=== PATIENT | female | born 1960 | race Caucasian/White ===

== ENCOUNTER 2016-11-07 04:21 | Emergency (ER) | payer OTHER ==
[2016-11-07 04:31] VITALS: BP 138/73; PULSE 92; TEMP 97.5; BMI 31.8
--- NOTE | 2016-11-07 04:39 | PDOC ---
History of Present Illness - General History Source: Patient, Old Records Exam Limitations: No Limitations - History of Present Illness Initial Comments: 11/07/16 04:45 Soraya DELONG The patient is a 56 year old female with a past medical history of DM ( controlled), HTN, Gastroparesis, Kidney stones, Hypothyroidism, Anxiety, Cholecystectomy who presents to the emergency department today for further evaluation of a head contusion s/p syncopal episode. The patient states that last night she was walking from her bedroom to her living room when she lost consciousness without warning, fell and hit her head. The patient notes that she had appropriate oral intake yesterday. The patient also reports bilateral knee contusions. <Kamran Walsh - Last Filed: 11/07/16 05:42> - General History Source: Patient <Chadd Sahni - Last Filed: 11/07/16 06:27> - General Chief Complaint: Syncope/Near Syncope Stated Complaint: FALL Time Seen by Provider: 11/07/16 04:39 Past History <Kamran Walsh - Last Filed: 11/07/16 05:42> - Past Medical History Anemia: No Asthma: No Cancer: No Cardiac Disorders: Yes (DX WITH ENLARGED HEART) CVA: No COPD: No CHF: No Dementia: No Diabetes: Yes GI Disorders: Yes (gastritis) Disorders: Yes (KIDNEY STONES) HTN: Yes Hypercholesterolemia: Yes Liver Disease: No Psychiatric Problems: Yes (ANXIETY.) Suicide Attempt (Hx): No Seizures: No Thyroid Disease: Yes (HYPO.) - Surgical History Abdominal Surgery: Yes Appendectomy: No Cardiac Surgery: No Cholecystectomy: Yes Lung Surgery: No Neurologic Surgery: No Orthopedic Surgery: Yes (ROTATOR CUFF REPAIR X2 LEFT ARM) - Immunization History Immunization Up to Date: Yes - Psycho/Social/Smoking Cessation Hx Anxiety: No Suicidal Ideation: No Smoking Status: No Smoking History: Never smoked Have you smoked in the past 12 months: No Number of Cigarettes Smoked Daily: 0 If you are a former smoker, when did you quit?: 11 YEARS Information on smoking cessation initiated: No Hx Alcohol Use: No Drug/Substance Use Hx: No Substance Use Type: None Hx Substance Use Treatment: No <Chadd Sahni - Last Filed: 11/07/16 06:27> - Past Medical History Allergies/Adverse Reactions: Allergies Allergy/AdvReac Type Severity Reaction Status Date / Time No Known Drug Allergies Allergy Verified 11/07/16 04:26 Home Medications: Ambulatory Orders Sitagliptin Phos/Metformin HCl [Janumet 50-1,000 mg Tablet] 1 each PO DAILY 01/26 Zolpidem Tartrate [Ambien] 10 mg PO HS 07/22/12 Insulin Glargine,Hum.rec.anlog [Lantus Solostar PEN -] 45 units SQ HS 05/13/13 Omeprazole [Prilosec (RX)] 20 mg PO DAILY 09/17/13 Atorvastatin Ca [Lipitor] 40 mg PO HS 01/27/15 Paroxetine HCl [Paxil] 20 mg PO DAILY 10/14/15 Aspirin [ASA -] 81 mg PO DAILY 02/04/16 Glipizide [Glucotrol] 10 mg PO BID 02/04/16 Loratadine 10 mg PO DAILY 02/04/16 Montelukast Na [Singulair -] 10 mg PO HS 02/04/16 Ibuprofen 800 mg PO TID #30 tablet 11/07/16 Levofloxacin [Levaquin -] 500 mg PO DAILY #7 tablet 11/07/16 Oxycodone HCl/Acetaminophen [Percocet 5-325 mg Tablet] 1 - 2 tab PO Q6H #20 tab MDD 4 11/07/16 Review of Systems - Review of Systems Able to Perform ROS?: Yes Comments:: 11/07/16 04:45 CONSTITUTIONAL: Absent: fever, chills, diaphoresis, generalized weakness, malaise, loss of appetite HEENT: Present: (+) Head contusion. Absent: rhinorrhea, nasal congestion, throat pain, throat swelling, difficulty swallowing, mouth swelling, ear pain, eye pain, visual Changes CARDIOVASCULAR: Absent: chest pain, syncope, palpitations, irregular heart rate, lightheadedness , peripheral edema RESPIRATORY: Absent: cough, shortness of breath, dyspnea with exertion, orthopnea, wheezing, stridor, hemoptysis GASTROINTESTINAL: Absent: abdominal pain, abdominal distension, nausea, vomiting, diarrhea, constipation, melena, hematochezia GENITOURINARY: Absent: dysuria, frequency, urgency, hesitancy, hematuria, flank pain, genital pain MUSCULOSKELETAL: Present: Bilateral knee contusions Absent: Joint swelling SKIN: Absent: rash, itching, pallor HEMATOLOGIC/IMMUNOLOGIC: Absent: easy bleeding, easy bruising, lymphadenopathy, frequent infections ENDOCRINE: Absent: unexplained weight gain, unexplained weight loss, heat intolerance, cold intolerance NEUROLOGIC: Absent: headache, focal weakness or paresthesias, dizziness, unsteady gait, seizure, mental status changes, bladder or bowel incontinence PSYCHIATRIC: Absent: anxiety, depression, suicidal or homicidal ideation, hallucinations. <Kamran Walsh - Last Filed: 11/07/16 05:42> *Physical Exam - Vital Signs Last Vital Signs Temp Pulse Resp BP Pulse Ox 97.5 F L 92 H 14 138/73 100 11/07/16 04:26 11/07/16 04:26 11/07/16 04:26 11/07/16 04:26 11/07/16 04:26 - Physical Exam Comments: 11/07/16 04:45 GENERAL: Well developed, well nourished. Awake and alert. In no acute distress. HEENT: (+) Contusion on the right frontal region Normocephalic. PERRLA, EOMI. No conjunctival pallor. Sclerae are non-icteric. Moist mucous membranes. Oropharynx is clear. NECK: Supple. Full ROM. No JVD. Carotid pulses 2+ and symmetric, without bruits. No thyromegaly. No lymphadenopathy. CARDIOVASCULAR: Regular rate and rhythm. No murmurs, rubs, or gallops. Distal pulses are 2+ and symmetric. PULMONARY: No evidence of respiratory distress. Lungs clear to auscultation bilaterally. No wheezing, rales or rhonchi. ABDOMINAL: Soft. Non-tender. Non-distended. No rebound or guarding. No organomegaly. Normoactive bowel sounds. MUSCULOSKELETAL Normal range of motion at all joints. No bony deformities or tenderness. No CVA tenderness. EXTREMITIES: (+) Bilateral contusions at knees. No cyanosis. No clubbing. No edema. No calf tenderness. SKIN: Warm and dry. Normal capillary refill. No rashes. No jaundice. NEUROLOGICAL: Alert, awake, appropriate. Cranial nerves 2-12 intact. No deficits to light touch and temperature in face, upper extremities and lower extremities. No motor deficits in the in face, upper extremities and lower extremities. Normoreflexic in the upper and lower extremities. Normal speech. Toes are downgoing bilaterally. PSYCHIATRIC: Cooperative. Good eye contact. Appropriate mood and affect. <Kamran Waslh - Last Filed: 11/07/16 05:42> - Vital Signs Last Vital Signs Temp Pulse Resp BP Pulse Ox 97.5 F L 92 H 14 138/73 100 11/07/16 04:26 11/07/16 04:26 11/07/16 04:26 11/07/16 04:26 11/07/16 04:26 <Chadd Sahni - Last Filed: 11/07/16 06:27> ED Treatment Course - LABORATORY CBC & Chemistry Diagram: 11/07/16 05:00 11/07/16 05:00 <Chadd Sahni - Last Filed: 11/07/16 06:27> Medical Decision Making - Medical Decision Making 11/07/16 05:42 EXAM: CT HEAD WITHOUT CONTRAST No acute brain parenchymal abnormality. No hemorrhage, mass or acute territorial infarct. No skull fracture. Swelling left frontal scalp. Small fluid left maxillary sinus. Visualized mastoid air cells clear. THIS DOCUMENT HAS BEEN ELECTRONICALLY SIGNED Haydee Xiong M.D. <Kamran Walsh - Last Filed: 11/07/16 05:42> - Medical Decision Making 11/07/16 06:26 Dr. Sahni: The scribe's documentation has been prepared under my direction and personally reviewed by me in its entirery. I confirm that the note above accurately reflects all work, treatment, procedures, and medical decision making performed by me. <Chadd Sahni - Last Filed: 11/07/16 06:27> *DC/Admit/Observation/Transfer - Attestations Scribe Attestion: 11/07/16 04:46 Documentation prepared by Kamran Walsh, acting as medical insurance coding specialist for Chadd Sahni MD. <Kamran Walsh - Last Filed: 11/07/16 05:42> - Discharge Dispostion Admit: No <Chadd Sahni - Last Filed: 11/07/16 06:27> Diagnosis at time of Disposition: Closed head injury Qualifiers: Encounter type: initial encounter Qualified Code(s): S09.90XA - Unspecified injury of head, initial encounter Sinusitis Qualifiers: Sinusitis location: sphenoidal Chronicity: acute Recurrence: non-recurrent Qualified Code(s): J01.30 - Acute sphenoidal sinusitis, unspecified Contusion of knee, right Qualifiers: Encounter type: initial encounter Qualified Code(s): S80.01XA - Contusion of right knee, initial encounter - Discharge Dispostion Disposition: HOME Condition at time of disposition: Stable - Prescriptions Prescriptions: Ibuprofen 800 mg PO TID #30 tablet Levofloxacin [Levaquin -] 500 mg PO DAILY #7 tablet Oxycodone HCl/Acetaminophen [Percocet 5-325 mg Tablet] 1 - 2 tab PO Q6H #20 tab MDD 4 - Referrals Referrals: Tania Guzman MD [Primary Care Provider] - - Patient Instructions Printed Discharge Instructions: DI for Closed Head Injury, DI for Syncope in Adults (Fainting), DI for Contusion
[2016-11-07] MEDS ORDERED: ACETAMINOPHEN 1000 MG/100 ML VIAL (NON FORMULARY) IVPB ONE (04:41)
[2016-11-07] MEDS ORDERED: ACETAMINOPHEN INJECTION 100 ML IVPB ONE (05:08)
[2016-11-07 05:58] LABS: BASOPHIL 0.7 % (0-2.0); MCHC 33.5 g/dl (32.0-36.0); MEAN CELL VOLUME 74.6 fl (80-96); MEAN PLT VOLUME 8.7 fl (7.5-11.1); NEUTROPHILS 64.9 % (42.8-82.8); PLATELET COUNT 263 K/MM3 (134-434); RDW 15.5 % (11.6-15.6); WHITE BLOOD COUNT 7.6 K/mm3 (4.0-10.0)
[2016-11-07 06:05] LABS: URINE APPEARANCE CLEAR; URINE BILIRUBIN NEGATIVE (NEGATIVE); URINE BLOOD NEGATIVE (NEGATIVE); URINE COLOR STRAW; URINE GLUCOSE (UA) 3+ (NEGATIVE); URINE KETONE NEGATIVE (NEGATIVE); URINE LEUK ESTERASE NEGATIVE (NEGATIVE); URINE NITRITE NEGATIVE (NEGATIVE); URINE PROTEIN NEGATIVE (NEGATIVE); URINE UROBILINOGEN NEGATIVE E.U./dl (0.2-1.0)
[2016-11-07 06:10] LABS: INR 1.13 (0.82-1.09); PROTHROMBIN TIME (PATIENT) 12.5 SEC (9.98-11.88)
[2016-11-07] MEDS ORDERED: IBUPROFEN 400 MG TABLET (FP) PO ONE ×2 (06:22→06:28)
[2016-11-07] MEDS ORDERED: LEVOFLOXACIN 500 MG TABLET (FP) PO ONE (06:22)
[2016-11-07 06:27] LABS: ALBUMIN 3.5 g/dl (3.4-5.0); ALK PHOS 133 U/L (45-117); ANION GAP 12 (8-16); BILIRUBIN,TOTAL 0.2 mg/dL (0.2-1.0); CO2 27 mmol/L (21-32); CREATININE 0.7 mg/dL (0.55-1.02); GLUCOSE,RANDOM 297 mg/dL (74-106); MAGNESIUM 1.3 mg/dL (1.8-2.4); SGOT/AST 18 U/L (15-37); SGPT/ALT 20 U/L (12-78); TOT PROT 7.7 g/dl (6.4-8.2)
[2016-11-07] MEDS ORDERED: LEVOFLOXACIN 500 MG TABLET (FP) ONE (06:28)
--- NOTE | 2016-11-07 10:00 | EKG ---
Test Reason : Blood Pressure : / mmHG Vent. Rate : 088 BPM Atrial Rate : 088 BPM P-R Int : 154 ms QRS Dur : 080 ms QT Int : 370 ms P-R-T Axes : 059 -09 025 degrees QTc Int : 447 ms NORMAL SINUS RHYTHM MINIMAL VOLTAGE CRITERIA FOR LVH, MAY BE NORMAL VARIANT WHEN COMPARED WITH ECG OF 14-OCT-2015 04:12, NO SIGNIFICANT CHANGE WAS FOUND Confirmed by UZMA OLIVAS MD ([id number]) on 11/07/2016 9:59:26 AM Referred By: Confirmed By:UZMA OLIVAS MD
== END 2016-11-07 06:44 | disposition home or self-care (01) ==
LOC: JER 04:21
PROC: 3E033NZ Introduction of Analgesics, Hypnotics, Sedatives into Peripheral Vein, Percutaneous Approach (ICD-10-PCS; principal; 2016-11-07)
DX: J01.30 Acute sphenoidal sinusitis, unspecified (principal); S09.90XA Unspecified injury of head, initial encounter; S80.01XA Contusion of right knee, initial encounter; I51.9 Heart disease, unspecified; Z87.442 Personal history of urinary calculi; I10 Essential (primary) hypertension; E78.00 Pure hypercholesterolemia, unspecified; F41.9 Anxiety disorder, unspecified; W18.39XA Other fall on same level, initial encounter; Y93.89 Activity, other specified; Y92.003 Bedroom of unspecified non-institutional (private) residence as the place of occurrence of the external cause
CPT/HCPCS: 36415; 70450-TC; 71010-TC; 73562-TC-RT; 73630-TC-LT; 80053; 80307; 81003; 83690; 83735; 85025; 85610; 93005; 93010; 96374; 99283-25

== ENCOUNTER 2017-03-11 21:04 | Emergency (ER) | payer OTHER ==
[2017-03-11 21:16] VITALS: BMI 29.0
[2017-03-11] MEDS ORDERED: ONDANSETRON 4 MG/2 ML VIAL IVPUSH ONE (22:14)
[2017-03-11] MEDS ORDERED: PANTOPRAZOLE SODIUM 40 MG in SODIUM CHLORIDE 100 ML IVPB ONE (22:16)
--- NOTE | 2017-03-11 22:17 | PDOC ---
Attending Attestation - HPI HPI: 03/11/17 23:41 The patient is a 56 year old female with a PMHx of uncontrolled IDDM (fs 150's) , HTN, gastroparesis, gastric ulcer (4 years ago), gastritis, kidney stones, hypothyroidism, and s/p cholecystectomy anxiety presents with multiple episodes of vomiting and diarrhea for three days. The patient reports that she has had black tarry stools. She reports associated epigastric pain, vertigo, dizziness. She denies hematemesis. Denies chest pain, SOB. <GoelRachelDianne A - Last Filed: 03/11/17 23:41> - Resident Resident Name: Delio Zapien - ED Attending Attestation I have performed the following: I have examined & evaluated the patient, The case was reviewed & discussed with the resident, I agree w/resident's findings & plan, Exceptions are as noted - HPI HPI: 03/12/17 01:31 abdominal pain. - Physicial Exam PE: 03/12/17 01:31 *Physical Exam General Appearance: Yes: Appropriately Dressed. No: Apparent Distress, Intoxicated HEENT: positive: EOMI, LINDSEY, Normal ENT Inspection, Normal Voice, TMs Normal, Pharynx Normal. negative: Pale Conjunctivae, Photophobia, Scleral Icterus (R), Scleral Icterus (L) Neck: positive: Trachea midline, Normal Thyroid, Supple. negative: Tender, Rigid, Carotid bruit, Stridor, Lymphadenopathy (R), Lymphadenopathy (L), Thyromegaly Respiratory/Chest: positive: Lungs Clear, Normal Breath Sounds. negative: Chest Tender, Respiratory Distress, Accessory Muscle Use, Labored Respiration, RES, Crackles, Rales, Rhonchi, Stridor, Wheezing, Dullness Cardiovascular: positive: Regular Rhythm, Regular Rate, S1, S2. negative: Edema , JVD, Murmur, Bradycardia, Tachycardia Vascular Pulses: Dorsalis-Pedis (R): 2+, Doralis-Pedis (L): 2+ Gastrointestinal/Abdominal: positive: Normal Bowel Sounds, Flat, Soft. negative : Tender, Organomegaly, Pulsatile Mass, Increased Bowel Sounds, Decreased BS, Distended, Guarding, Rebound, Hernia, Hepatomegaly, Spleenomegaly Lymphatic: negative: Adenopathy, Tenderness Musculoskeletal: positive: Normal Inspection. negative: CVA Tenderness, Decreased Range of Motion Extremity: positive: Normal Capillary Refill, Normal Inspection, Normal Range of Motion, Pelvis Stable. negative: Tender, Pedal Edema, Swelling, Erythema Integumentary: positive: Normal Color, Dry, Warm. 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 negative: EOM Palsy, Facial Droop, Sensory Deficit - Medical Decision Making 03/12/17 19:36 lab work was done and was normal except pt had slight elevation to [facility]. Pt will follow up with her chief of staff doctor. Abd pain improved. <Chadd Sahni - Last Filed: 03/12/17 19:37> Discharge Disposition <Dianne Goel - Last Filed: 03/11/17 23:41> - Discharge Dispostion Last Admission D/C Date: 12/22/07 Admit: No <Chadd Sahni - Last Filed: 03/12/17 19:37> - Diagnosis Abdominal pain, Epigastric abdominal pain - Prescriptions Prescriptions: Pantoprazole Sodium [Protonix] 40 mg PO ONCE #30 tablet.ec - Referrals Referrals: Tania Guzman MD [Primary Care Provider] - Deejay Scott MD [Staff Physician] - Marlon Westbrook MD [Staff Physician] - - Patient Instructions Printed Discharge Instructions: DI for Abdominal Pain-Adult Additional Instructions: Please follow up with your doctor. Please have the positive hormone evaluated. Return if any problems
[2017-03-11] MEDS ORDERED: morphine CARPU-JECT 2 MG/1 ML DISP.SYRIN IVPUSH ONE (22:24)
[2017-03-11] MEDS ORDERED: SODIUM CHLORIDE 1,000 ML IV STA (22:25)
--- NOTE | 2017-03-11 22:38 | PDOC ---
History of Present Illness - General Chief Complaint: Lightheaded Stated Complaint: DIZZINESS,VOMITING, ABD PAIN Time Seen by Provider: 03/11/17 22:00 - History of Present Illness Initial Comments: 03/11/17 22:27 56F with history of uncontrolled IDDM (fs 150's), HTN, gastroparesis, kidney stones, hypothyroidism, and s/p cholecystectomy anxiety presents with multiple and relentless episodes of vomiting, diarrhea with black tarry stools and epigastric pain x3 days as well as vertigo, dizziness. Patient has been diagnosed with gastritis in the past, last endoscopy was in 2014, as well as a history of gastric ulcer 4 years ago. No hematemesis, no chest pain, no sob. Past History - Past Medical History Allergies/Adverse Reactions: Allergies Allergy/AdvReac Type Severity Reaction Status Date / Time No Known Drug Allergies Allergy Verified 03/11/17 21:14 Home Medications: Ambulatory Orders Sitagliptin Phos/Metformin HCl [Janumet 50-1,000 mg Tablet] 1 each PO DAILY 01/26 Insulin Glargine,Hum.rec.anlog [Lantus Solostar PEN -] 45 units SQ HS 05/13/13 Omeprazole [Prilosec (RX)] 20 mg PO DAILY 09/17/13 Loratadine 10 mg PO DAILY 02/04/16 Montelukast Na [Singulair -] 10 mg PO HS 02/04/16 Levofloxacin [Levaquin -] 500 mg PO DAILY #7 tablet 11/07/16 Anemia: No Asthma: No Cancer: No Cardiac Disorders: Yes (DX WITH ENLARGED HEART) CVA: No COPD: No CHF: No Dementia: No Diabetes: Yes GI Disorders: Yes (gastritis) Disorders: Yes (KIDNEY STONES) HTN: Yes Hypercholesterolemia: Yes Liver Disease: No Psychiatric Problems: Yes (ANXIETY.) Suicide Attempt (Hx): No Seizures: No Thyroid Disease: Yes (HYPO.) - Surgical History Abdominal Surgery: Yes Appendectomy: No Cardiac Surgery: No Cholecystectomy: Yes Lung Surgery: No Neurologic Surgery: No Orthopedic Surgery: Yes (ROTATOR CUFF REPAIR X2 LEFT ARM) - Immunization History Immunization Up to Date: Yes - Psycho/Social/Smoking Cessation Hx Anxiety: No Suicidal Ideation: No Smoking Status: No Smoking History: Never smoked Have you smoked in the past 12 months: No Number of Cigarettes Smoked Daily: 0 If you are a former smoker, when did you quit?: 11 YEARS Hx Alcohol Use: No Drug/Substance Use Hx: No Substance Use Type: None Hx Substance Use Treatment: No Review of Systems - Review of Systems Constitutional: Yes: See HPI. No: Chills, Diaphoresis, Fever HEENTM: No: Symptoms Reported, Throat Swelling, Difficulty Swallowing Respiratory: No: Symptoms reported, Shortness of Breath, Stridor, Wheezing Cardiac (ROS): Yes: See HPI, Chest Pain. No: Palpitations, Syncope ABD/GI: Yes: See HPI, Abdominal Distended, Diarrhea, Nausea, Vomiting, Abdominal cramping (epigastric pain and burning), Tarry Stools (since today). No: Abd. Pain w/ defecation : No: Burning, Dysuria, Discharge Integumentary: No: Dryness, Erythema, Pruritus, Rash Neurological: Yes: Headache, Unsteady Gait, Dizziness. No: Seizure *Physical Exam - Vital Signs Last Vital Signs Temp Pulse Resp BP Pulse Ox 98.2 F 116 H 20 120/75 100 03/11/17 21:14 03/11/17 21:14 03/11/17 21:14 03/11/17 21:14 03/11/17 21:14 - Physical Exam General Appearance: Yes: Nourished, Moderate Distress HEENT: positive: EOMI, LINDSEY. negative: Scleral Icterus (R), Scleral Icterus (L) Respiratory/Chest: positive: Lungs Clear, Normal Breath Sounds. negative: Chest Tender, Respiratory Distress Cardiovascular: positive: Regular Rhythm, S1, S2, Tachycardia Vascular Pulses: Dorsalis-Pedis (R): 2+, Doralis-Pedis (L): 2+ Gastrointestinal/Abdominal: positive: Tender, Soft, Decreased BS Extremity: positive: Normal Capillary Refill Integumentary: positive: Normal Color
[2017-03-11] MEDS ORDERED: PANTOPRAZOLE SODIUM 100 ML IVPB ONE (23:07)
[2017-03-11] MEDS ORDERED: morphine CARPU-JECT 4 MG/1 ML DISP.SYRIN ONE (23:07)
[2017-03-11] MEDS ORDERED: ONDANSETRON 4 MG/2 ML VIAL ONE (23:08)
[2017-03-11 23:38] LABS: STOOL FOR OCCULT BLOOD NEGATIVE (NEGATIVE)
[2017-03-11 23:38] LABS: BASOPHIL 1.2 % (0-2.0); EOSINOPHIL 1.1 % (0-4.5); MCH 24.4 pg (25.7-33.7); MCHC 32.9 g/dl (32.0-36.0); MEAN CELL VOLUME 74.1 fl (80-96); MEAN PLT VOLUME 8.6 fl (7.5-11.1); NEUTROPHILS 72.5 % (42.8-82.8); PLATELET COUNT 337 K/MM3 (134-434); RDW 14.9 % (11.6-15.6); WHITE BLOOD COUNT 12.2 K/mm3 (4.0-10.0)
[2017-03-11 23:45] LABS: URINE APPEARANCE CLOUDY; URINE BILIRUBIN NEGATIVE (NEGATIVE); URINE BLOOD 1+ (NEGATIVE); URINE COLOR YELLOW; URINE GLUCOSE (UA) 1+ (NEGATIVE); URINE KETONE NEGATIVE (NEGATIVE); URINE NITRITE NEGATIVE (NEGATIVE); URINE UROBILINOGEN NEGATIVE mg/dL (0.2-1.0)
[2017-03-11 23:59] LABS: URINE LEUK ESTERASE 3+ (NEGATIVE); URINE PROTEIN 2+ (NEGATIVE)
[2017-03-12 00:01] LABS: ALBUMIN 3.9 g/dl (3.4-5.0); ANION GAP 14 (8-16); BILIRUBIN,TOTAL 0.4 mg/dL (0.2-1.0); CALCIUM 9.6 mg/dL (8.5-10.1); CO2 23 mmol/L (21-32); CREATININE 1.2 mg/dL (0.55-1.02); GLUCOSE,RANDOM 150 mg/dL (74-106); SGOT/AST 41 U/L (15-37); SGPT/ALT 31 U/L (12-78); TOT PROT 8.3 g/dl (6.4-8.2)
[2017-03-12 00:02] LABS: ALK PHOS 167 U/L (45-117)
[2017-03-12] MEDS ORDERED: POTASSIUM CHLORIDE TABS 20 MEQ TABLET.ER (FP) PO ONE (01:30)
[2017-03-12 01:54] VITALS: BP 134/78; PULSE 93; TEMP 98.1
[2017-03-12 02:25] LABS: URINE BACTERIA MODERATE /hpf (NONE SEEN); URINE HYALINE CAST 46 /lpf; URINE MUCUS FEW; URINE RBC 7 /hpf (0-3); URINE WBC 132 /hpf (3-5)
--- NOTE | 2017-03-12 11:54 | EKG ---
Test Reason : Blood Pressure : / mmHG Vent. Rate : 088 BPM Atrial Rate : 088 BPM P-R Int : 136 ms QRS Dur : 080 ms QT Int : 402 ms P-R-T Axes : 039 -01 025 degrees QTc Int : 486 ms NORMAL SINUS RHYTHM PROLONGED QT ABNORMAL ECG WHEN COMPARED WITH ECG OF 13-FEB-2017 02:28, NO SIGNIFICANT CHANGE WAS FOUND Confirmed by ALLYSON PARHAM MD ([id number]) on 03/12/2017 11:53:28 AM Referred By: Confirmed By:ALLYSON PARHAM MD
== END 2017-03-12 01:55 | disposition home or self-care (01) ==
LOC: JER 21:04
PROC: 3E033GC Introduction of Other Therapeutic Substance into Peripheral Vein, Percutaneous Approach (ICD-10-PCS; principal; 2017-03-11)
PROC: 3E033NZ Introduction of Analgesics, Hypnotics, Sedatives into Peripheral Vein, Percutaneous Approach (ICD-10-PCS; 2017-03-11)
PROC: 3E033GC Introduction of Other Therapeutic Substance into Peripheral Vein, Percutaneous Approach (ICD-10-PCS; 2017-03-11)
DX: R10.13 Epigastric pain (principal); E11.9 Type 2 diabetes mellitus without complications; Z79.4 Long term (current) use of insulin; Z79.84 Long term (current) use of oral hypoglycemic drugs; I10 Essential (primary) hypertension; E03.9 Hypothyroidism, unspecified; K31.84 Gastroparesis
CPT/HCPCS: 36415; 80053; 81003; 81015; 82272; 84702; 84703; 85025; 93005; 93010; 99282-25

== ENCOUNTER 2017-04-25 09:28 | Emergency (ER) | payer OTHER ==
[2017-04-25 09:33] VITALS: BP 133/76; PULSE 104; TEMP 98; BMI 29.0
--- NOTE | 2017-04-25 10:07 | PDOC ---
History of Present Illness - General Chief Complaint: Urinary Problem Stated Complaint: PELVIC PAIN Time Seen by Provider: 04/25/17 09:51 History Source: Patient Exam Limitations: No Limitations - History of Present Illness Travel History: No Initial Comments: 04/25/17 10:07 She came to emergency department with complaints of dysuria, pain and burning and frequency to urine. States suffers from frequent urinary tract infections but has not been evaluated by [employer] or doctor. Has diabetes and states blood sugars go high and has a correlation between hyperglycemia and urinary tract infections. Denies nausea or vomiting, denies back pain, denies no bleeding in her urine Timing/Duration: reports: getting worse, changing over time Quality: reports: mild, moderate Abdominal Pain Onset Location: reports: suprapubic Pain Radiation: reports: no radiation Activities at Onset: reports: none Past History - Travel Traveled outside of the country in the last 30 days: No Close contact w/someone who was outside of country & ill: No - Past Medical History Allergies/Adverse Reactions: Allergies Allergy/AdvReac Type Severity Reaction Status Date / Time No Known Drug Allergies Allergy Verified 04/25/17 09:33 Home Medications: Ambulatory Orders Sitagliptin Phos/Metformin HCl [Janumet 50-1,000 mg Tablet] 1 each PO DAILY 01/26 Insulin Glargine,Hum.rec.anlog [Lantus Solostar PEN -] 45 units SQ HS 05/13/13 Omeprazole [Prilosec (RX)] 20 mg PO DAILY 09/17/13 Loratadine 10 mg PO DAILY 02/04/16 Montelukast Na [Singulair -] 10 mg PO HS 02/04/16 Levofloxacin [Levaquin -] 500 mg PO DAILY #7 tablet 11/07/16 Pantoprazole Sodium [Protonix] 40 mg PO ONCE #30 tablet.ec 03/12/17 Cephalexin Monohydrate [Keflex -] 500 mg PO Q8H #21 capsule 04/25/17 Anemia: No Asthma: No Cancer: No Cardiac Disorders: Yes (DX WITH ENLARGED HEART) CVA: No COPD: No CHF: No Dementia: No Diabetes: Yes GI Disorders: Yes (gastritis) Disorders: Yes (KIDNEY STONES) HTN: Yes Hypercholesterolemia: Yes Liver Disease: No Psychiatric Problems: Yes (ANXIETY.) Suicide Attempt (Hx): No Seizures: No Thyroid Disease: Yes (HYPO.) - Surgical History Abdominal Surgery: Yes Appendectomy: No Cardiac Surgery: No Cholecystectomy: Yes Lung Surgery: No Neurologic Surgery: No Orthopedic Surgery: Yes (ROTATOR CUFF REPAIR X2 LEFT ARM) - Immunization History Immunization Up to Date: Yes - Psycho/Social/Smoking Cessation Hx Anxiety: Yes Suicidal Ideation: No Smoking Status: No Smoking History: Never smoked Have you smoked in the past 12 months: No Number of Cigarettes Smoked Daily: 0 If you are a former smoker, when did you quit?: 11 YEARS Hx Alcohol Use: No Drug/Substance Use Hx: No Substance Use Type: None Hx Substance Use Treatment: No Review of Systems - Review of Systems Able to Perform ROS?: Yes Is the patient limited Serbian proficient: Yes Constitutional: Yes: Symptoms Reported, Malaise HEENTM: No: Symptoms Reported Respiratory: No: Symptoms reported *Physical Exam - Vital Signs Last Vital Signs Temp Pulse Resp BP Pulse Ox 98.0 F 104 H 20 133/76 99 04/25/17 09:04/25/17 09:04/25/17 09:04/25/17 09:04/25/17 09:29 - Physical Exam General Appearance: Yes: Nourished, Appropriately Dressed. No: Apparent Distress HEENT: positive: EOMI, LINDSEY, Normal ENT Inspection, TMs Normal, Pharynx Normal Neck: positive: Supple. 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 culture sent *DC/Admit/Observation/Transfer Diagnosis at time of Disposition: Urinary tract infection Qualifiers: Urinary tract infection type: acute cystitis Hematuria presence: without hematuria Qualified Code(s): N30.00 - Acute cystitis without hematuria - Discharge Dispostion Disposition: HOME Condition at time of disposition: Stable Admit: No - Prescriptions Prescriptions: Cephalexin Monohydrate [Keflex -] 500 mg PO Q8H #21 capsule - Referrals Referrals: Felipa Diaz MD [Primary Care Provider] - - Patient Instructions Printed Discharge Instructions: DI for Urinary Tract Infection (UTI) Additional Instructions: Rest, drink lots of fluids: Teas, water, soups Avoid contact with others until fevers and symptoms resolved Lots of handwashing and good hygiene Continue [id number] medications for symptomatic relief Tylenol or Motrin for fever and pain Continue all of antibiotics until completed Followup with private physician in one week for repeat urinalysis/reevaluation Return to emergency department for worsened symptoms, fevers, dehydration - Post Discharge Activity Work/School Note: Back to Work
[2017-04-25 10:10] LABS: URINE APPEARANCE CLEAR; URINE BILIRUBIN NEGATIVE (NEGATIVE); URINE BLOOD NEGATIVE (NEGATIVE); URINE COLOR LTYELLOW; URINE GLUCOSE (UA) 3+ (NEGATIVE); URINE KETONE NEGATIVE (NEGATIVE); URINE NITRITE NEGATIVE (NEGATIVE); URINE PROTEIN NEGATIVE (NEGATIVE); URINE UROBILINOGEN NEGATIVE mg/dL (0.2-1.0)
[2017-04-25 10:15] LABS: URINE LEUK ESTERASE 1+ (NEGATIVE)
[2017-04-25 10:25] LABS: URINE RBC <1 /hpf (0-3); URINE WBC 2 /hpf (3-5)
== END 2017-04-25 10:47 | disposition home or self-care (01) ==
LOC: JERFT 09:28
DX: N30.00 Acute cystitis without hematuria (principal); I10 Essential (primary) hypertension; E11.9 Type 2 diabetes mellitus without complications; Z79.4 Long term (current) use of insulin; Z79.84 Long term (current) use of oral hypoglycemic drugs; E78.00 Pure hypercholesterolemia, unspecified; E03.9 Hypothyroidism, unspecified; F41.9 Anxiety disorder, unspecified; Z87.442 Personal history of urinary calculi
CPT/HCPCS: 81003; 81015; 87086; 99281-25

== ENCOUNTER 2017-04-30 12:15 | Emergency (ER) | payer OTHER ==
[2017-04-30 12:42] VITALS: BMI 29.0
--- NOTE | 2017-04-30 13:35 | PDOC ---
History of Present Illness - History of Present Illness Initial Comments: 04/30/17 13:38 The patient is a 56 year old female with a significant past medical history of uncontrolled IDDM (fs 150's), HTN, gastroparesis, gastric ulcer (4 years ago), gastritis, kidney stones, hypothyroidism, s/p cholecystectomy, and anxiety, who presents to the emergency department for pain The patient states she was seen on 04/25/17 and discharged home with an Rx for Keflex for a UTI and acute cystitis upon <Luisa Haskins - Last Filed: 04/30/17 13:38> <Sophia Rehman - Last Filed: 04/30/17 15:42> - General Chief Complaint: Pain, Acute Stated Complaint: ABD PAIN Time Seen by Provider: 04/30/17 13:35 Past History <Luisa Haskins - Last Filed: 04/30/17 13:38> - Past Medical History Anemia: No Asthma: No Cancer: No Cardiac Disorders: Yes (DX WITH ENLARGED HEART) CVA: No COPD: No CHF: No Dementia: No Diabetes: Yes GI Disorders: Yes (gastritis) Disorders: Yes (KIDNEY STONES) HTN: Yes Hypercholesterolemia: Yes Liver Disease: No Psychiatric Problems: Yes (ANXIETY.) Suicide Attempt (Hx): No Seizures: No Thyroid Disease: Yes (HYPO.) - Surgical History Abdominal Surgery: Yes Appendectomy: No Cardiac Surgery: No Cholecystectomy: Yes Lung Surgery: No Neurologic Surgery: No Orthopedic Surgery: Yes (ROTATOR CUFF REPAIR X2 LEFT ARM) - Immunization History Immunization Up to Date: Yes - Psycho/Social/Smoking Cessation Hx Anxiety: Yes Suicidal Ideation: No Smoking Status: No Smoking History: Former smoker Have you smoked in the past 12 months: No Number of Cigarettes Smoked Daily: 0 If you are a former smoker, when did you quit?: 15 YEARS AGO Information on smoking cessation initiated: No Hx Alcohol Use: No Drug/Substance Use Hx: No Substance Use Type: None Hx Substance Use Treatment: No <Sophia Rehman - Last Filed: 04/30/17 15:42> - Past Medical History Allergies/Adverse Reactions: Allergies Allergy/AdvReac Type Severity Reaction Status Date / Time No Known Drug Allergies Allergy Verified 04/30/17 12:38 Home Medications: Ambulatory Orders Sitagliptin Phos/Metformin HCl [Janumet 50-1,000 mg Tablet] 1 each PO DAILY 01/26 Insulin Glargine,Hum.rec.anlog [Lantus Solostar PEN -] 45 units SQ HS 05/13/13 Omeprazole [Prilosec (RX)] 20 mg PO DAILY 09/17/13 Loratadine 10 mg PO DAILY 02/04/16 Montelukast Na [Singulair -] 10 mg PO HS 02/04/16 Levofloxacin [Levaquin -] 500 mg PO DAILY #7 tablet 11/07/16 Pantoprazole Sodium [Protonix] 40 mg PO ONCE #30 tablet.ec 03/12/17 Cephalexin Monohydrate [Keflex -] 500 mg PO Q8H #21 capsule 04/25/17 Nitrofurantoin Monohyd/M-Cryst [Macrobid -] 100 mg PO BID #14 capsule 04/30/17 *Physical Exam - Vital Signs Last Vital Signs Temp Pulse Resp BP Pulse Ox 98.3 F 89 16 114/62 100 04/30/17 12:39 04/30/17 12:39 04/30/17 12:39 04/30/17 12:39 04/30/17 12:39 <Luisa Haskins - Last Filed: 04/30/17 13:38> - Vital Signs Last Vital Signs Temp Pulse Resp BP Pulse Ox 98.3 F 89 16 114/62 100 04/30/17 12:39 04/30/17 12:39 04/30/17 12:39 04/30/17 12:39 04/30/17 12:39 <Sophia Rehman - Last Filed: 04/30/17 15:42> ED Treatment Course - LABORATORY CBC & Chemistry Diagram: 04/30/17 14:10 04/30/17 14:10 <Sophia Rehman - Last Filed: 04/30/17 15:42> Medical Decision Making - Medical Decision Making 04/30/17 15:32 Pt presents to the ED complaining of suprapubic pain and dysuria, frequency and urgency. DEnies fever, nausea, vomiting or flank pain. hAs been on keflex without relief for 5 days. Labs are unremarkable. UA shows minimal evidence of infection, but given the nature of her symptoms, I still believe that she has a UTI. Will treat with macrobid and instruct her to return to the ED for continued symptoms after three days. <Sophia Rehman - Last Filed: 04/30/17 15:42> *DC/Admit/Observation/Transfer <Luisa Haskins - Last Filed: 04/30/17 13:38> - Discharge Dispostion Admit: No <Sophia Rehman - Last Filed: 04/30/17 15:42> Diagnosis at time of Disposition: Urinary tract infection Qualifiers: Urinary tract infection type: acute cystitis Hematuria presence: without hematuria Qualified Code(s): N30.00 - Acute cystitis without hematuria - Discharge Dispostion Disposition: HOME Condition at time of disposition: Good - Prescriptions Prescriptions: Nitrofurantoin Monohyd/M-Cryst [Macrobid -] 100 mg PO BID #14 capsule - Patient Instructions Printed Discharge Instructions: DI for Urinary Tract Infection (UTI) Additional Instructions: Take the antibiotic until it is all gone. Return immediately to the ED for severe nausea and vomiting, unable to tolerate PO, back pain, pain with fever. Make sure that you follow up with your primary care doctor.
[2017-04-30] MEDS ORDERED: PHENAZOPYRIDINE HCL 100 MG TABLET (FP) PO ONE (14:15)
[2017-04-30 14:19] LABS: BASOPHIL 0.8 % (0-2.0); EOSINOPHIL 2.5 % (0-4.5); MCH 24.7 pg (25.7-33.7); MCHC 32.6 g/dl (32.0-36.0); MEAN CELL VOLUME 75.6 fl (80-96); MEAN PLT VOLUME 8.3 fl (7.5-11.1); NEUTROPHILS 64.8 % (42.8-82.8); PLATELET COUNT 281 K/MM3 (134-434); WHITE BLOOD COUNT 7.9 K/mm3 (4.0-10.0)
[2017-04-30] MEDS ORDERED: PHENAZOPYRIDINE HCL 100 MG TABLET (FP) ONE (14:19)
[2017-04-30 14:24] LABS: URINE APPEARANCE CLEAR; URINE BILIRUBIN NEGATIVE (NEGATIVE); URINE BLOOD NEGATIVE (NEGATIVE); URINE COLOR STRAW; URINE GLUCOSE (UA) NEGATIVE (NEGATIVE); URINE KETONE NEGATIVE (NEGATIVE); URINE LEUK ESTERASE 1+ (NEGATIVE); URINE NITRITE NEGATIVE (NEGATIVE); URINE PROTEIN NEGATIVE (NEGATIVE); URINE UROBILINOGEN NEGATIVE mg/dL (0.2-1.0)
[2017-04-30 14:25] LABS: URINE BACTERIA RARE /hpf (NONE SEEN); URINE RBC <1 /hpf (0-3); URINE WBC 2 /hpf (3-5)
[2017-04-30 14:45] LABS: ALBUMIN 3.5 g/dl (3.4-5.0); ALK PHOS 129 U/L (45-117); ANION GAP 12 (8-16); BILIRUBIN,TOTAL 0.3 mg/dL (0.2-1.0); CALCIUM 9.7 mg/dL (8.5-10.1); CO2 25 mmol/L (21-32); CREATININE 0.6 mg/dL (0.55-1.02); GLUCOSE,RANDOM 223 mg/dL (74-106); SGOT/AST 13 U/L (15-37); SGPT/ALT 18 U/L (12-78); TOT PROT 7.7 g/dl (6.4-8.2)
[2017-04-30 15:43] VITALS: BP 105/60; PULSE 78; TEMP 98.2
== END 2017-04-30 16:27 | disposition home or self-care (01) ==
LOC: JER 12:15
DX: N30.00 Acute cystitis without hematuria (principal); I10 Essential (primary) hypertension; E10.9 Type 1 diabetes mellitus without complications; Z79.4 Long term (current) use of insulin; Z79.84 Long term (current) use of oral hypoglycemic drugs; F41.9 Anxiety disorder, unspecified; K29.70 Gastritis, unspecified, without bleeding; Z87.891 Personal history of nicotine dependence
CPT/HCPCS: 36415; 80053; 81003; 81015; 85025; 87086; 99283-25

== ENCOUNTER 2017-06-22 07:58 | Day surgery (SDC) | payer OTHER ==
[2017-06-18 17:11] VITALS: BMI 32.9
[2017-06-22] MEDS ORDERED: LEVOFLOXACIN 500 MG IVPB 100 ML IVPB ONE ×2 (10:02→10:07)
[2017-06-22] MEDS ORDERED: LEVOFLOXACIN 500 MG PREMIX BAG IVPB ONE (10:08)
[2017-06-22] MEDS ORDERED: ONDANSETRON 4 MG/2 ML VIAL IVPUSH PRN (10:37)
[2017-06-22] MEDS ORDERED: oxyCODONE HCL 5 MG TABLET PO PRN ×2 (10:37)
[2017-06-22] MEDS ORDERED: LACTATED RINGERS SOLUTION 1,000 ML IV SCH (10:45)
--- NOTE | 2017-06-22 10:53 | OP ---
Operative Note - Note: Operative Date: 06/22/17 Pre-Operative Diagnosis: left renal stone Operation: left eswl Findings: two left stones: 5 mm lower and 3 mm mid pole Post-Operative Diagnosis: Same as Pre-op Surgeon: David Verduzco Anesthesia: Fractional Operative Report Dictated: Yes
[2017-06-22] MEDS ORDERED: ONDANSETRON 4 MG/2 ML VIAL ONE (12:52)
[2017-06-22 13:01] VITALS: TEMP 97.4
[2017-06-22 13:45] VITALS: BP 118/64; PULSE 73
--- NOTE | 2017-06-23 07:23 | OP ---
DATE OF OPERATION: 06/22/2017 PREOPERATIVE DIAGNOSIS: Left renal stone. POSTOPERATIVE DIAGNOSIS: Left renal stone. PROCEDURE: Left extracorporeal shock wave lithotripsy. ATTENDING: Monica Asher MD ANESTHESIA: Fractional. OPERATION: The patient was brought in the operating room, placed in supine position on the operating room table. Ultrasonography and fluoroscopy were performed. Two stones in the left kidney were identified. A 5-mm left lower pole stone and a 3-mm left mid pole stone were identified. At this point, anesthesia and preoperative antibiotics consisting of Levaquin was administered. Extracorporeal shock wave lithotripsy was then performed, 1600 impulses at 18 joules of power was administered to the 5-mm stone, and 900 impulses at 18 joules of power was administered to the 3-mm stone. Excellent fragmentation of the stones was noted under real time ultrasonography and fluoroscopy. There were no complications noted. The disposition of the patient was to the recovery room. MONICA ASHER M.D. [id number]
== END 2017-06-22 13:50 | disposition home or self-care (01) ==
LOC: JASU-SURG 07:58
PROVIDERS: ATTEND Urology
PROC: 0TF4XZZ Fragmentation in Left Kidney Pelvis, External Approach (ICD-10-PCS; principal; 2017-06-22 10:15)
DX: N20.0 Calculus of kidney (principal)
CPT/HCPCS: 94760

== ENCOUNTER 2017-10-26 12:37 | Emergency (ER) | payer OTHER ==
[2017-10-26 12:43] VITALS: BP 118/67; PULSE 96; TEMP 98.4; BMI 28.7
[2017-10-26] MEDS ORDERED: KETOROLAC TROMETHAMINE 60 MG/2 ML VIAL IM ONE (13:11)
--- NOTE | 2017-10-26 13:11 | PDOC ---
History of Present Illness - General Chief Complaint: Pain, Acute Stated Complaint: RT ARM PAIN Time Seen by Provider: 10/26/17 12:46 History Source: Patient Exam Limitations: No Limitations - History of Present Illness Initial Comments: CHIEF COMPLAINT: 57 y/o afebrile female with PMH HLD and IDDM c/o atraumatic right wrist pain x 1 month. HISTORY OF PRESENT ILLNESS: The patient does admit she is constantly cleaning and lifting heavy objects on a daily basis at home. She denies fall/trauma to her right hand/wrist. She has been taking tylenol for pain with little relief. Vital signs on arrival are notable for pulse of 96. REVIEW OF SYSTEMS: GENERAL/CONSTITUTIONAL: No fever/chills. No weakness. No weight change. MUSCULOSKELETAL: +right wrist pain. No neck or back pain. SKIN: No rash or easy bruising. NEUROLOGIC: No headache, vertigo, loss of consciousness, or loss of sensation. PHYSICAL EXAM: VITAL_SIGNS: within normal limits GENERAL_APPEARANCE: alert, cooperative, no obvious discomfort. MENTAL_STATUS: speech clear, oriented X 3, responds appropriately to questions. NEURO: motor intact and sensory intact in injured extremity. EXTREMITIES: good pulse in injured extremity. Pain with palpation of right snuffbox. +finklestein test right hand. Pain with flexion and extension of right thumb. No erythema, warmth, streaking, obvious deformities or crepitus to affected finger. SKIN: warm, dry, good color. Past History - Past Medical History Allergies/Adverse Reactions: Allergies Allergy/AdvReac Type Severity Reaction Status Date / Time No Known Drug Allergies Allergy Verified 10/26/17 12:39 Home Medications: Ambulatory Orders Sitagliptin Phos/Metformin HCl [Janumet 50-1,000 mg Tablet] 1 each PO BID Insulin Glargine,Hum.rec.anlog [Lantus Solostar PEN -] 45 units SQ HS 05/13/13 Paroxetine HCl [Paxil -] 20 mg PO DAILY 06/18/17 Zolpidem Tartrate [Ambien] 10 mg PO HS 06/18/17 Acetaminophen [Tylenol -] 500 mg PO PRN PRN 06/22/17 Ibuprofen 600 mg PO Q6H #20 tablet 10/26/17 Anemia: Yes Asthma: No Cancer: No Cardiac Disorders: Yes (DX WITH ENLARGED HEART) CVA: No COPD: No CHF: No Dementia: No Diabetes: Yes GI Disorders: Yes (gastritis) Disorders: Yes (KIDNEY STONES) HTN: Yes Hypercholesterolemia: Yes Liver Disease: No Psychiatric Problems: Yes (ANXIETY.) Seizures: No Thyroid Disease: Yes (HYPO.) - Surgical History Abdominal Surgery: Yes Appendectomy: No Cardiac Surgery: No Cholecystectomy: Yes Lung Surgery: No Neurologic Surgery: No Orthopedic Surgery: Yes (ROTATOR CUFF REPAIR X2 LEFT ARM) - Immunization History Immunization Up to Date: Yes - Suicide/Smoking/Psychosocial Hx Smoking Status: No Smoking History: Former smoker Have you smoked in the past 12 months: No Number of Cigarettes Smoked Daily: 0 If you are a former smoker, when did you quit?: years ago Information on smoking cessation initiated: No Hx Alcohol Use: No Drug/Substance Use Hx: No Substance Use Type: None Hx Substance Use Treatment: No *Physical Exam - Vital Signs Last Vital Signs Temp Pulse Resp BP Pulse Ox 98.4 F 96 H 18 118/67 99 10/26/17 12:41 10/26/17 12:41 10/26/17 12:41 10/26/17 12:41 10/26/17 12:41 Medical Decision Making - Medical Decision Making A/P: 57 y/o female with signs and symptoms of De Quervain's tenosynovitis. Plan is as follows: 1. xray r/o fracture 2. IM toradol The patient assures me she has never been told not to take NSAIDS. Xray right hand/wrist IMPRESSION: (wet read) No fracture Will send rx for ibuprofen. Provided patient with thumb splint. INstructed her to ice the area and f/u with her doctor in 2 weeks if no improvement. Instructed her to avoid using her right hand. The patient verbalizes understanding of all instructions, has no further questions and is awaiting discharge. *DC/Admit/Observation/Transfer Diagnosis at time of Disposition: De Quervain's tenosynovitis, right - Discharge Dispostion Disposition: HOME Condition at time of disposition: Good - Prescriptions Prescriptions: Ibuprofen 600 mg PO Q6H #20 tablet - Referrals Referrals: Felipa Diaz MD [Primary Care Provider] - Omkar Horvath MD [Staff Physician] - - Patient Instructions Printed Discharge Instructions: How To Perform RICE (Rest, Ice, Compress, Elevate), DI for Tenosynovitis Additional Instructions: Discharge Instructions: -The xray of your hand/wrist was negative -You have tendonitis of the wrist -Please take 600mg of Ibuprofen every 6 hours with food for pain -Apply ice to affected area -Use splint for comfort as often as possible -Do not use right wrist or hand until healed -Follow up with your doctor within 1 week -If no improvement in 2 weeks follow up with Dr. Horvath. - Post Discharge Activity
[2017-10-26] MEDS ORDERED: KETOROLAC TROMETHAMINE 60 MG/2 ML VIAL ONE (13:19)
== END 2017-10-26 13:58 | disposition home or self-care (01) ==
LOC: JERFT 12:37
PROC: 3E0233Z Introduction of Anti-inflammatory into Muscle, Percutaneous Approach (ICD-10-PCS; principal; 2017-10-26)
DX: M65.4 Radial styloid tenosynovitis [de Quervain] (principal); I10 Essential (primary) hypertension; E11.9 Type 2 diabetes mellitus without complications; Z79.84 Long term (current) use of oral hypoglycemic drugs; Z79.4 Long term (current) use of insulin; E78.00 Pure hypercholesterolemia, unspecified; E03.9 Hypothyroidism, unspecified; F41.9 Anxiety disorder, unspecified; Z87.891 Personal history of nicotine dependence
CPT/HCPCS: 73110-TC-RT-FY; 73130-TC-RT-FY; 96372; 99281-25

== ENCOUNTER 2017-12-06 20:14 | Emergency (ER) | payer OTHER ==
[2017-12-06 20:20] VITALS: BP 119/74; PULSE 97; TEMP 98.6; BMI 32.5
[2017-12-06] MEDS ORDERED: KETOROLAC TROMETHAMINE 60 MG/2 ML VIAL IM ONE (20:47)
[2017-12-06] MEDS ORDERED: KETOROLAC TROMETHAMINE 60 MG/2 ML VIAL ONE (20:57)
--- NOTE | 2017-12-06 20:58 | PDOC ---
History of Present Illness - General Chief Complaint: Pain, Acute Stated Complaint: RT ARM PAIN Time Seen by Provider: 12/06/17 20:31 - History of Present Illness Initial Comments: 12/06/17 20:58 CHIEF COMPLAINT: right wrist pain HISTORY OF PRESENT ILLNESS: 57 y/o afebrile female with PMH HLD and IDDM right wrist pain x 2 months. Patient was seen in this ED 1 month ago and diagnosed with tendosynovitis, but she admits she never followed up with ortho for further evaluation. Patient reports that she does use her hands and arms a lot , and is always cleaning and lifting heavy objects. She denies fall/trauma to her right hand/wrist. REVIEW OF SYSTEMS: GENERAL/CONSTITUTIONAL: No fever/chills. No weakness. No weight change. MUSCULOSKELETAL: +right wrist pain. No neck or back pain. SKIN: No rash or easy bruising. NEUROLOGIC: No headache, vertigo, loss of consciousness, or loss of sensation. PHYSICAL EXAM: VITAL_SIGNS: within normal limits GENERAL_APPEARANCE: alert, cooperative, no obvious discomfort. MENTAL_STATUS: speech clear, oriented X 3, responds appropriately to questions. NEURO: motor intact and sensory intact in injured extremity. EXTREMITIES: +Jc's test. Tenderness to medial dorsal aspect of R wrist and with any movement of thumb or wrist. Good pulse to R wrist. No erythema, warmth, streaking, obvious deformities or crepitus to affected finger. SKIN: warm, dry, good color. Past History - Past Medical History Allergies/Adverse Reactions: Allergies Allergy/AdvReac Type Severity Reaction Status Date / Time No Known Drug Allergies Allergy Verified 10/26/17 12:39 Home Medications: Ambulatory Orders Sitagliptin Phos/Metformin HCl [Janumet 50-1,000 mg Tablet] 1 each PO BID Insulin Glargine,Hum.rec.anlog [Lantus Solostar PEN -] 45 units SQ HS 05/13/13 Paroxetine HCl [Paxil -] 20 mg PO DAILY 06/18/17 Zolpidem Tartrate [Ambien] 10 mg PO HS 06/18/17 Diclofenac Sodium 50 mg PO BID #20 tablet. 12/06/17 Sitagliptin Phos/Metformin HCl [Janumet 50-1,000 mg Tablet] 1 each PO ASDIR Tolnaftate 1% Powder [Tinactin 1% Powder -] 1 applic TP BID #1 btl 12/06/17 Anemia: Yes Asthma: No Cancer: No Cardiac Disorders: Yes (DX WITH ENLARGED HEART) CVA: No COPD: No CHF: No Dementia: No Diabetes: Yes GI Disorders: Yes (gastritis) Disorders: Yes (KIDNEY STONES) HTN: Yes Hypercholesterolemia: Yes Liver Disease: No Psychiatric Problems: Yes (ANXIETY.) Seizures: No Thyroid Disease: Yes (HYPO.) - Surgical History Abdominal Surgery: Yes Appendectomy: No Cardiac Surgery: No Cholecystectomy: Yes Lung Surgery: No Neurologic Surgery: No Orthopedic Surgery: Yes (ROTATOR CUFF REPAIR X2 LEFT ARM) - Immunization History Immunization Up to Date: Yes - Suicide/Smoking/Psychosocial Hx Smoking Status: No Smoking History: Never smoked Have you smoked in the past 12 months: No Number of Cigarettes Smoked Daily: 0 If you are a former smoker, when did you quit?: years ago Information on smoking cessation initiated: No Hx Alcohol Use: No Drug/Substance Use Hx: No Substance Use Type: None Hx Substance Use Treatment: No *Physical Exam - Vital Signs Last Vital Signs Temp Pulse Resp BP Pulse Ox 98.6 F 97 H 20 119/74 98 12/06/17 20:18 12/06/17 20:18 12/06/17 20:18 12/06/17 20:18 12/06/17 20:18 Medical Decision Making - Medical Decision Making 12/06/17 21:00 57 y/o afebrile female with PMH HLD and IDDM right wrist pain x 2 months. Toradol IM Advised patient to take medication as prescribed and follow up with orthopedics this week. Advised patient of signs and symptoms for return to ED. Patient verbalized understanding and agrees to plan. *DC/Admit/Observation/Transfer Diagnosis at time of Disposition: De Quervain's tenosynovitis - Discharge Dispostion Disposition: HOME Condition at time of disposition: Stable Admit: No - Prescriptions Prescriptions: Diclofenac Sodium 50 mg PO BID #20 tablet.dr Andrade 1% Powder [Tinactin 1% Powder -] 1 applic TP BID #1 btl - Referrals Referrals: Felipa Diaz MD [Primary Care Provider] - - Patient Instructions Printed Discharge Instructions: DI for Tenosynovitis Additional Instructions: Please take medications as prescribed. As discussed, you MUST follow up with orthopedics this week for further evaluation and treatment of your wrist pain. If you develop any new or worsening symptoms, please return to the ER. - Post Discharge Activity
== END 2017-12-06 21:09 | disposition home or self-care (01) ==
LOC: JERFT 20:14
PROC: 3E0233Z Introduction of Anti-inflammatory into Muscle, Percutaneous Approach (ICD-10-PCS; principal; 2017-12-06)
DX: M65.4 Radial styloid tenosynovitis [de Quervain] (principal); E11.9 Type 2 diabetes mellitus without complications; Z79.4 Long term (current) use of insulin; Z79.84 Long term (current) use of oral hypoglycemic drugs; E78.00 Pure hypercholesterolemia, unspecified; E03.9 Hypothyroidism, unspecified; F41.9 Anxiety disorder, unspecified; Z87.442 Personal history of urinary calculi; Z87.19 Personal history of other diseases of the digestive system
CPT/HCPCS: 96372; 99281-25

== ENCOUNTER 2018-01-12 12:44 | Emergency (ER) | payer OTHER ==
[2018-01-12 12:58] VITALS: BP 128/74; PULSE 81; TEMP 98.3; BMI 32.9
[2018-01-12] MEDS ORDERED: KETOROLAC TROMETHAMINE 30 MG/1 ML VIAL IVPUSH ONE (13:12)
[2018-01-12] MEDS ORDERED: KETOROLAC TROMETHAMINE 30 MG/1 ML VIAL ONE (13:16)
[2018-01-12 13:38] LABS: URINE APPEARANCE CLEAR; URINE BILIRUBIN NEGATIVE (<2.0 mg/dL); URINE BLOOD NEGATIVE (NEGATIVE); URINE COLOR STRAW; URINE GLUCOSE (UA) 1+ (NEGATIVE); URINE KETONE NEGATIVE (NEGATIVE); URINE NITRITE NEGATIVE (NEGATIVE); URINE PROTEIN NEGATIVE (NEGATIVE); URINE UROBILINOGEN NEGATIVE mg/dL (0.2-1.0)
[2018-01-12 13:38] LABS: BASO % 0.6 % (0-2.0); EOS % 2.1 % (0-4.5); HEMATOCRIT 33.6 % (32.4-45.2); LYMPH % 23.9 % (8-40); MCH 24.7 pg (25.7-33.7); MCHC 32.8 g/dl (32.0-36.0); MEAN CELL VOLUME 75.4 fl (80-96); MEAN PLT VOLUME 8.5 fl (7.5-11.1); NEUT % 67.4 % (42.8-82.8); PLATELET COUNT 303 K/MM3 (134-434); RBC 4.45 M/mm3 (3.60-5.2); RDW 15.4 % (11.6-15.6); WHITE BLOOD COUNT 8.2 K/mm3 (4.0-10.0)
[2018-01-12 13:47] LABS: URINE LEUK ESTERASE 3+ (NEGATIVE)
[2018-01-12 13:50] LABS: EPI CELLS RARE /HPF (FEW); URINE BACTERIA MODERATE /hpf (NONE SEEN)
[2018-01-12] MEDS ORDERED: CEFTRIAXONE 1,000 MG in DEXTROSE 5%-WATER - 50 ML IVPB ONE (14:17)
[2018-01-12 14:22] LABS: ALBUMIN 3.5 g/dl (3.4-5.0); ANION GAP 12 (8-16); BLOOD UREA NITROGEN 9 mg/dL (7-18); CALCIUM 9.1 mg/dL (8.5-10.1); CHLORIDE 103 mmol/L (98-107); CO2 25 mmol/L (21-32); CREATININE 0.7 mg/dL (0.55-1.02); GLUCOSE,RANDOM 226 mg/dL (74-106); POTASSIUM 3.1 mmol/L (3.5-5.1); SGOT/AST 17 U/L (15-37); SGPT/ALT 17 U/L (12-78); SODIUM 140 mmol/L (136-145)
--- NOTE | 2018-01-12 14:22 | PDOC ---
History of Present Illness - General Chief Complaint: Pain, Acute Stated Complaint: ABD PAIN Time Seen by Provider: 01/12/18 13:03 History Source: Patient Exam Limitations: No Limitations - History of Present Illness Initial Comments: 01/12/18 14:21 The patient is a 57F with a PMH of recurrent UTI's, nephrolithiasis, HLD, and IDDM who presents to the ER with complaints of suprapubic abdominal pain which is sharp in nature and radiates to her b/l flanks, not associated with hematuria but is associated with dysuria. She states this feels both like pain from her UTI's and nephrolithiasis. She denies any fevers but admits to chills and night sweats. Past History - Past Medical History Allergies/Adverse Reactions: Allergies Allergy/AdvReac Type Severity Reaction Status Date / Time No Known Drug Allergies Allergy Verified 01/12/18 12:58 Home Medications: Ambulatory Orders Sitagliptin Phos/Metformin HCl [Janumet 50-1,000 mg Tablet] 1 each PO BID Insulin Glargine,Hum.rec.anlog [Lantus Solostar PEN -] 45 units SQ HS 05/13/13 Paroxetine HCl [Paxil -] 20 mg PO DAILY 06/18/17 Zolpidem Tartrate [Ambien] 10 mg PO HS 06/18/17 Diclofenac Sodium 50 mg PO BID #20 tablet. 12/06/17 Albuterol Sulfate Inhaler - [Ventolin Hfa Inhaler -] 1 - 2 inh PO Q4H 01/12/18 Aspirin 81 mg PO DAILY 01/12/18 Atorvastatin Calcium 40 mg PO DAILY 01/12/18 Esomeprazole Magnesium [Nexium 24Hr] 40 mg PO DAILY 01/12/18 Glipizide [Glucotrol] 10 mg PO BID 01/12/18 Levothyroxine [Synthroid -] 25 mcg PO DAILY 01/12/18 Loratadine [Allergy Relief] 10 mg PO DAILY 01/12/18 Montelukast Sodium [Singulair] 10 mg PO DAILY 01/12/18 Sulfamethoxazole/Trimethoprim [Bactrim Ds -] 1 tab PO BID #6 tablet 01/12/18 Anemia: Yes Asthma: No Cancer: No Cardiac Disorders: Yes (DX WITH ENLARGED HEART) CVA: No COPD: No CHF: No Dementia: No Diabetes: Yes GI Disorders: Yes (gastritis) Disorders: Yes (KIDNEY STONES) HTN: Yes Hypercholesterolemia: Yes Liver Disease: No Psychiatric Problems: Yes (ANXIETY.) Seizures: No Thyroid Disease: Yes (HYPO.) - Surgical History Abdominal Surgery: Yes Appendectomy: No Cardiac Surgery: No Cholecystectomy: Yes Lung Surgery: No Neurologic Surgery: No Orthopedic Surgery: Yes (ROTATOR CUFF REPAIR X2 LEFT ARM) - Immunization History Immunization Up to Date: Yes - Suicide/Smoking/Psychosocial Hx Smoking Status: No Smoking History: Never smoked Have you smoked in the past 12 months: No Number of Cigarettes Smoked Daily: 0 If you are a former smoker, when did you quit?: years ago Hx Alcohol Use: No Drug/Substance Use Hx: No Substance Use Type: None Hx Substance Use Treatment: No Review of Systems - Review of Systems Able to Perform ROS?: Yes Comments:: 01/12/18 14:24 GENERAL/CONSTITUTIONAL: No fever or chills. No weakness. HEAD, EYES, EARS, NOSE AND THROAT: No change in vision. No ear pain or discharge. No sore throat. CARDIOVASCULAR: No chest pain, palpitations, or lightheadedness. RESPIRATORY: No cough, wheezing, shortness of breath, or hemoptysis. GASTROINTESTINAL: Positive for abdominal pain. No nausea, vomiting, diarrhea, or constipation. GENITOURINARY: Positive for dysuria. No frequency, hematuria, or change in urination. MUSCULOSKELETAL: No joint or muscle swelling or pain. No neck or back pain. SKIN: No rash or lesions. NEUROLOGIC: No headache, numbness, tingling, weakness, loss of consciousness, or change in strength/sensation. ENDOCRINE: No increased thirst. No abnormal weight change. HEMATOLOGIC/LYMPHATIC: No anemia, easy bleeding, or history of blood clots. ALLERGIC/IMMUNOLOGIC: No hives or skin allergy. Is the patient limited Welsh proficient: No *Physical Exam - Vital Signs Last Vital Signs Temp Pulse Resp BP Pulse Ox 98.3 F 81 18 128/74 97 01/12/18 12:56 01/12/18 12:56 01/12/18 12:56 01/12/18 12:56 01/12/18 12:56 - Physical Exam Comments: 01/12/18 14:24 GENERAL: Well developed, well nourished. Awake and alert. No acute distress. HEENT: Normocephalic, atraumatic. Hearing grossly normal. Moist mucous membranes. PERRLA, EOMI. No conjunctival pallor. Sclera are non-icteric. Oropharynx is clear. NECK: Supple. Full ROM. CARDIOVASCULAR: Regular rate and rhythm. No murmurs, rubs, or gallops. Distal pulses are 2+ and symmetric. PULMONARY: No evidence of respiratory distress. Lungs clear to auscultation bilaterally. No wheezing, rales or rhonchi. ABDOMINAL: Soft. Tender to deep palpation in suprapubic abdomen and b/l lower quadrants.. Non-distended. Normoactive bowel sounds. GENITOURINARY: No CVA tenderness bilaterally. MUSCULOSKELETAL: R wrist brace noted. Normal range of motion at all joints. No bony deformities or tenderness. EXTREMITIES: No cyanosis. No clubbing. No edema. No calf tenderness or swelling. SKIN: Warm and dry. Normal capillary refill. No rashes. No jaundice. NEUROLOGICAL: Alert, awake, appropriate. Cranial nerves 2-12 intact. Normal speech. Gait is normal without ataxia. PSYCHIATRIC: Cooperative. Good eye contact. Appropriate mood and affect. ED Treatment Course - LABORATORY CBC & Chemistry Diagram: 01/12/18 13:30 01/12/18 13:30 - ADDITIONAL ORDERS Additional order review: Laboratory Results 01/12/18 13:00 Urine Color Straw Urine Appearance Clear Urine pH 6.0 Ur Specific [place] 1.006 Urine Protein Negative Urine Glucose (UA) 1+ H Urine Ketones Negative Urine Blood Negative Urine Nitrite Negative Urine Bilirubin Negative Urine Urobilinogen Negative Ur Leukocyte Esterase 3+ H D Urine WBC (Auto) 17 Urine RBC (Auto) 2 Ur Epithelial Cells Rare Urine Bacteria Moderate 01/12/18 13:30 RBC 4.45 MCV 75.4 L MCHC 32.8 RDW 15.4 MPV 8.5 Neutrophils % 67.4 Lymphocytes % 23.9 Monocytes % 6.0 Eosinophils % 2.1 Basophils % 0.6 - Medications Given in the ED: ED Medications Discontinued Medications Generic Name Dose Route Start Last Admin Trade Name Freq PRN Reason Stop Dose Admin Ketorolac Tromethamine 30 mg 01/12/18 13:12 01/12/18 13:16 Toradol Injection - IVPUSH 01/12/18 13:13 30 mg ONCE ONE Administration Medical Decision Making - Medical Decision Making 01/12/18 14:25 The patient is a well-appearing 57F with a PMH of UTI's who presents with dyuria without gross hematuria. UA indicates UTI. Will give fluids and IV abx. Will monitor closely and reassess. 01/12/18 14:43 Will d/c home with bactrim DS prescription. *DC/Admit/Observation/Transfer Diagnosis at time of Disposition: UTI (urinary tract infection) Qualifiers: Urinary tract infection type: acute cystitis Hematuria presence: without hematuria Qualified Code(s): N30.00 - Acute cystitis without hematuria - Discharge Dispostion Disposition: HOME Condition at time of disposition: Stable Decision to Admit order: No - Prescriptions Prescriptions: Sulfamethoxazole/Trimethoprim [Bactrim Ds -] 1 tab PO BID #6 tablet - Referrals Referrals: David Verduzco MD [Staff Physician] - - Patient Instructions Printed Discharge Instructions: DI for Urinary Tract Infection (UTI) Additional Instructions: Please follow up with your primary care physician in 2-3 days. Please follow up with Dr. Verduzco this week. Please return to the ER if you have any signs or symptoms of chest pain, shortness of breath, uncontrollable fever, chills, nausea, vomiting, numbness, tingling, or weakness in any part of your body, changes in vision, or slurred speech. Please take your medications as prescribed. Please return to the ER if symptoms persist, worsen, or new symptoms arise. - Post Discharge Activity
[2018-01-12 14:24] LABS: ALK PHOS 152 U/L (45-117); BILIRUBIN,TOTAL 0.4 mg/dL (0.2-1.0); TOT PROT 7.9 g/dl (6.4-8.2)
--- NOTE | 2018-01-12 14:26 | PDOC ---
Attending Attestation - Resident Resident Name: Forest Magallanes - ED Attending Attestation I have performed the following: I have examined & evaluated the patient, The case was reviewed & discussed with the resident, I agree w/resident's findings & plan - HPI HPI: 01/12/18 14:22 57-year-old female diabetes and history of UTI presents with 3 days of suprapubic discomfort with dysuria/frequency and lower abdominal discomfort, no gross hematuria. Slight loose stool but no vomiting or diarrhea, chills but no fever, hyperglycemia but otherwise normal diet. Compliant with her insulin. Patient states symptoms are similar to past UTI. - Physicial Exam PE: 01/12/18 14:25 Afebrile, vital signs normal Well-appearing Heart is regular Abdomen is soft/nontender/nondistended. Suprapubic discomfort to palpation without guarding or rebound, no CVA tenderness. Right wrist brace, otherwise neurovascular intact throughout. - Medical Decision Making 01/12/18 14:25 57-year-old female insulin-dependent diabetic with symptoms of UTI, slight hyperglycemia at home. Overall well-appearing with normal vital signs, no clinical signs or symptoms consistent with pyelonephritis. Labs, urinalysis, urine culture IV fluids, IV antibiotics Reassess and dispo
[2018-01-12] MEDS ORDERED: CEFTRIAXONE 1 GM/50 ML BAG ONE (14:39)
--- NOTE | 2018-01-14 09:09 | PDOC ---
Patient Follow-up (Call Back) - Post ED Follow - Up Condition at time of discharge: Stable Disposition at time of original discharge: HOME Reason for Call Back: Abnwl. Microbiology (Patient's urine shows lactose fermenting negative bacilli 11 100,000. Patient currently on Bactrim. Will await final report.)
== END 2018-01-12 14:50 | disposition home or self-care (01) ==
LOC: JER 12:44
PROC: 3E03329 Introduction of Other Anti-infective into Peripheral Vein, Percutaneous Approach (ICD-10-PCS; principal; 2018-01-12)
PROC: 3E0333Z Introduction of Anti-inflammatory into Peripheral Vein, Percutaneous Approach (ICD-10-PCS; 2018-01-12)
DX: N30.00 Acute cystitis without hematuria (principal); I10 Essential (primary) hypertension; E11.9 Type 2 diabetes mellitus without complications; Z79.4 Long term (current) use of insulin; E03.9 Hypothyroidism, unspecified; E78.00 Pure hypercholesterolemia, unspecified; F41.9 Anxiety disorder, unspecified; Z87.442 Personal history of urinary calculi
CPT/HCPCS: 36415; 80053; 81003; 81015; 83690; 85025; 87086; 87186; 96365; 96375; 99282-25

== ENCOUNTER 2018-10-11 09:00 | Day surgery (SDC) | payer OTHER ==
[2018-10-08 17:21] VITALS: BMI 32.1
[2018-10-11] MEDS ORDERED: MIDAZOLAM HCL 2 MG/2 ML SINGLE DOSE VIAL ONE ×2 (13:25)
--- NOTE | 2018-10-11 13:56 | OP ---
Operative Note - Note: Operative Date: 10/11/18 Pre-Operative Diagnosis: Left renal stone Operation: Left ESWL Findings: 5 & 7 mm mid pole left renal stone Post-Operative Diagnosis: Same as Pre-op Surgeon: David Verduzco Anesthesia: Fractional Estimated Blood Loss (mls): 0 Operative Report Dictated: Yes
[2018-10-11] MEDS ORDERED: ONDANSETRON 4 MG/2 ML VIAL IVPUSH ONE (14:15)
[2018-10-11 16:13] VITALS: BP 121/75; PULSE 73; TEMP 97.8
--- NOTE | 2018-10-12 07:31 | OP ---
DATE OF OPERATION: 10/11/2018 PREOPERATIVE DIAGNOSIS: Left renal stone. POSTOPERATIVE DIAGNOSIS: Left renal stone. PROCEDURE: Left extracorporeal shock wave lithotripsy. ATTENDING: Monica Asher MD ANESTHESIA: General. OPERATION FOLLOWS: The patient was brought in the operating room, placed in supine position on the operating room table. Ultrasonography and fluoroscopy were performed. Two stones in the left mid pole were identified, one measuring 5 mm, the other measuring 7 mm. Anesthesia and preoperative antibiotics were then administered. Shock wave lithotripsy was started, 1500 impulses at 17 joules of power was administered to each stone with excellent fragmentation noted. There were no complications noted. The disposition of the patient was to the recovery room. MONICA ASHER M.D. [id number]
== END 2018-10-11 16:15 | disposition home or self-care (01) ==
LOC: JASU-SURG 09:00
PROVIDERS: ATTEND Urology
PROC: 0TF4XZZ Fragmentation in Left Kidney Pelvis, External Approach (ICD-10-PCS; principal; 2018-10-11 17:00)
DX: N20.0 Calculus of kidney (principal)
CPT/HCPCS: 82962

== ENCOUNTER 2019-01-16 18:37 | Emergency (ER) | payer OTHER ==
[2019-01-16 19:08] VITALS: BMI 26.5
--- NOTE | 2019-01-16 19:20 | PDOC ---
History of Present Illness - General Chief Complaint: Nausea/Vomiting Stated Complaint: NAUSEA - History of Present Illness Initial Comments: The pt is a 58F w/ a history of T2DM, HLD, COPD, recurrent nephrolithiasis and hypothroidism who presents for evaluation of 1 day of nausea, NBNB vomiting x5, and NB diarrhea x2. She endorses an associated fever yesterday to 100.7 for which she took Tylenol. She also reports 1 day of abdominal pain that is epigastric/RUQ, intermittent, crampy/burning, exacerbated by touch and movement , and not alleviated by anything she can identify. She denies sick contacts, suspicious foods, and has not tried taking anything for her symptoms today. 01/16/19 19:22 01/16/19 20:13 Past History - Past Medical History Allergies/Adverse Reactions: Allergies Allergy/AdvReac Type Severity Reaction Status Date / Time oxycodone Allergy Severe Verified 01/16/19 19:05 Home Medications: Ambulatory Orders Sitagliptin Phos/Metformin HCl [Janumet 50-1,000 mg Tablet] 1 each PO BID Insulin Glargine,Hum.rec.anlog [Lantus Solostar PEN -] 40 units SQ HS 05/13/13 Zolpidem Tartrate [Ambien] 10 mg PO HS 06/18/17 Albuterol Sulfate Inhaler - [Ventolin Hfa Inhaler -] 1 - 2 inh PO Q4H 01/12/18 Atorvastatin Calcium 40 mg PO DAILY 01/12/18 Levothyroxine [Synthroid -] 25 mcg PO DAILY 01/12/18 Escitalopram Oxalate 20 mg PO DAILY 10/08/18 Anemia: Yes Asthma: No Cancer: No Cardiac Disorders: Yes (DX WITH ENLARGED HEART) CVA: No COPD: No CHF: No Dementia: No Diabetes: Yes GI Disorders: Yes (gastritis) Disorders: Yes (KIDNEY STONES) HTN: No Hypercholesterolemia: Yes Liver Disease: No Psychiatric Problems: Yes (ANXIETY.) Seizures: No Thyroid Disease: Yes (HYPO.) - Surgical History Abdominal Surgery: No Appendectomy: No Cardiac Surgery: No Cholecystectomy: Yes Lung Surgery: No Neurologic Surgery: No Orthopedic Surgery: Yes (ROTATOR CUFF REPAIR X2 LEFT ARM) - Immunization History Immunization Up to Date: Yes - Suicide/Smoking/Psychosocial Hx Smoking Status: No Smoking History: Smoker current status UNK Have you smoked in the past 12 months: No Number of Cigarettes Smoked Daily: 0 If you are a former smoker, when did you quit?: years ago Hx Alcohol Use: No Drug/Substance Use Hx: No Substance Use Type: None Hx Substance Use Treatment: No Review of Systems - Review of Systems Able to Perform ROS?: Yes Comments:: GENERAL/CONSTITUTIONAL: No fever or chills. No weakness HEAD, EYES, EARS, NOSE AND THROAT: No change in vision. No ear pain or discharge. No sore throat CARDIOVASCULAR: No chest pain or shortness of breath RESPIRATORY: Denies cough, hemoptysis GENITOURINARY: No dysuria, frequency, or change in urination MUSCULOSKELETAL: No joint or muscle swelling or pain. No neck or back pain SKIN: No rash NEUROLOGIC: No headache, loss of consciousness, or change in strength/sensation ENDOCRINE: No increased thirst. No abnormal weight change HEMATOLOGIC/LYMPHATIC: No anemia, easy bleeding, or history of blood clots ALLERGIC/IMMUNOLOGIC: No hives or skin allergy 01/16/19 19:20 Is the patient limited Wallisian proficient: No *Physical Exam - Vital Signs Last Vital Signs Temp Pulse Resp BP Pulse Ox 97.8 F 69 14 147/65 100 01/16/19 19:06 01/16/19 19:06 01/16/19 19:06 01/16/19 19:06 01/16/19 19:06 - Physical Exam Comments: GENERAL: Awake, alert, and oriented to person/place/time, in no acute distress HEAD: No signs of trauma, normocephalic, atraumatic EYES: PERRLA, EOMI, sclera anicteric, conjunctiva clear ENT: Hearing grossly normal, nares patent, oropharynx clear without exudates LUNGS: No distress, speaks full sentences, clear to auscultation bilaterally HEART: Regular rate and rhythm, normal S1 and S2, no murmurs appreciated, peripheral pulses normal and equal bilaterally ABDOMEN: Soft, non-distended, epigastric/RUQ abdominal pain w/o rebound or guarding, normoactive bowel sounds EXTREMITIES: Normal inspection, Normal range of motion, no edema. No clubbing or cyanosis NEUROLOGICAL: Cranial nerves II through XII grossly intact. Normal speech, no focal sensorimotor deficits SKIN: Warm, diaphoretic 01/16/19 19:20 ED Treatment Course - LABORATORY CBC & Chemistry Diagram: 01/16/19 19:45 01/16/19 19:45 - ADDITIONAL ORDERS Additional order review: Laboratory Results 01/16/19 19:05 POC Glucometer 283 01/16/19 19:05 POC Glucometer 283 Medical Decision Making - Medical Decision Making The pt is a 58F w/ a history of HTN, COPD, GERD, s/p medina, T2DM, and hypothyroidism who presents for evaluation of 1 day of abdominal pain with NBNB vomiting and NB diarrhea with a fever yesterday Ddx includes: gastroenteritis, biliary dz (however s/p medina), pancreatitis, infection, lyte disturbance, ACS; consider but not likely obstruction, not likely nephrolithiais given distribution of pain ED Course CMP, CBC, Lipase, Trop I, UA ECG Ofirmev, IVF, Zofran 01/16/19 19:52 Hyperglycemia No anemia No leukoctyosis 01/16/19 20:05 Hypokalemia, will replete Pt continues to report 'room spinning' will give Meclizine Will reassess 01/16/19 21:12 Pt feels improved; is HDS and tolerating PO Plan for D/C w/ PCP f/u Discharge instructions and return precautions given Pt in agreement and verbalized understanding Dispo: home 01/16/19 23:37 *DC/Admit/Observation/Transfer Diagnosis at time of Disposition: Hypokalemia Abdominal pain Qualifiers: Abdominal location: epigastric Qualified Code(s): R10.13 - Epigastric pain Nausea & vomiting Qualifiers: Vomiting type: unspecified Vomiting Intractability: non-intractable Qualified Code(s): R11.2 - Nausea with vomiting, unspecified - Discharge Dispostion Disposition: HOME Condition at time of disposition: Stable Decision to Admit order: No - Referrals Referrals: [facility] [Provider Group] Kadeem Connolly DO [Staff Physician] - Amadou Armstrong MD [Staff Physician] - - Patient Instructions Printed Discharge Instructions: DI for Viral Syndrome, DI for Vomiting -- Adult Additional Instructions: You were seen in the Emergency Department for evaluation of dizziness, nausea and vomiting. Your potassium was low and was repleted. Otherwise your labs were unremarkable. Review the handout provided at discharge. Continue to take your mediations as prescribed, including your Meclizine. Follow up with your primary care provider within a week. Return to the Emergency Department if you develop fevers/chills, chest pain, trouble breathing, changes in strength/sensation, worsening symptoms, or any new/concerning symptoms. - Post Discharge Activity
[2019-01-16] MEDS ORDERED: ONDANSETRON 4 MG/2 ML VIAL IVPUSH ONE (19:32)
[2019-01-16] MEDS ORDERED: LACTATED RINGERS SOLUTION 1000 ML INFUS.BAG IV ONE (19:32)
[2019-01-16] MEDS ORDERED: ACETAMINOPHEN 1000 MG/100 ML VIAL (NON FORMULARY) IVPB ONE (19:32)
[2019-01-16 19:49] LABS: BASO % 0.7 % (0-2.0); EOS % 2.8 % (0-4.5); HEMATOCRIT 36.7 % (32.4-45.2); HEMOGLOBIN 12.1 GM/dL (10.7-15.3); LYMPH % 10.3 % (8-40); MCH 25.4 pg (25.7-33.7); MCHC 32.9 g/dl (32.0-36.0); MEAN CELL VOLUME 77.4 fl (80-96); MEAN PLT VOLUME 8.1 fl (7.5-11.1); MONO % 6.3 % (3.8-10.2); NEUT % 79.9 % (42.8-82.8); PLATELET COUNT 263 K/MM3 (134-434); RBC 4.75 M/mm3 (3.60-5.2); RDW 14.5 % (11.6-15.6); WHITE BLOOD COUNT 6.9 K/mm3 (4.0-10.0)
[2019-01-16] MEDS ORDERED: ONDANSETRON 4 MG/2 ML VIAL ONE (19:53)
[2019-01-16] MEDS ORDERED: ACETAMINOPHEN INJECTION 100 ML IVPB ONE (19:53)
[2019-01-16] MEDS ORDERED: FAMOTIDINE 20 MG/50 ML IVPB 20 MG/50 ML MG IVPB ONE ×2 (20:23→20:40)
[2019-01-16 20:28] LABS: ALBUMIN 3.8 g/dl (3.4-5.0); ALK PHOS 192 U/L (45-117); ANION GAP 14 MMOL/L (8-16); BILIRUBIN,TOTAL 0.8 mg/dL (0.2-1); BLOOD UREA NITROGEN 11 mg/dL (7-18); CALCIUM 9.4 mg/dL (8.5-10.1); CHLORIDE 103 mmol/L (98-107); CO2 19 mmol/L (21-32); CREATININE 0.8 mg/dL (0.55-1.3); GLUCOSE,RANDOM 279 mg/dL (74-106); LIPASE 150 U/L (73-393); POTASSIUM 3.1 mmol/L (3.5-5.1); SGOT/AST 90 U/L (15-37); SGPT/ALT 60 U/L (13-61); SODIUM 136 mmol/L (136-145); TOT PROT 8.4 g/dl (6.4-8.2)
[2019-01-16] MEDS ORDERED: POTASSIUM CHLORIDE TABS 20 MEQ TABLET.ER (FP) PO ONE ×2 (21:00→21:12)
[2019-01-16] MEDS ORDERED: MECLIZINE HCL 25 MG TABLET (FP) PO ONE (21:00)
[2019-01-16] MEDS ORDERED: MECLIZINE HCL 25 MG TABLET (FP) ONE (21:12)
--- NOTE | 2019-01-16 23:46 | PDOC ---
Documentation entered by Kaycee Guerra SCRIBE, acting as scribe for Mita Munoz MD. Mita Munoz MD: This documentation has been prepared by the nishantibe, Kaycee Guerra SCRIBE, under my direction and personally reviewed by me in its entirety. I confirm that the documentation accurately reflects all work, treatment, procedures, and medical decision making performed by me. Attending Attestation - Resident Resident Name: RileyquangLefty - ED Attending Attestation I have performed the following: I have examined & evaluated the patient, The case was reviewed & discussed with the resident, I agree w/resident's findings & plan, Exceptions are as noted - HPI HPI: 01/16/19 20:23 The patient is a 58-year-old female with a past medical history significant for HTN, COPD, hx of gastritis, DM Type 2, Hypothyroidism (noncompliant with medication) presents to the emergency department with abdominal pain. The patient presents with 1 day of intermittent, epigastric pain thats burning and cramping in quality. The patient reports associated symptoms of 5 episodes of NBNB emesis and 2 episodes of nonbloody diarrhea. The patient reports yesterday she was noted to have a temperature of 100.7, relief noted with Tylenol. Denies taking any medication today. Denies sick contact or unusual food. Allergies: Oxycodone Social history: Former smoker. Surgical history: Cholecystectomy and Rotator cuff repair. - Physicial Exam PE: 01/16/19 21:13 GENERAL: Well developed, well nourished. Awake and alert. No acute distress. HEENT: Normocephalic, atraumatic. PERRLA, EOMI. No conjunctival pallor. Sclera are non- icteric. Moist mucous membranes. Oropharynx is clear. NECK: Supple. Full ROM. No JVD. Carotid pulses 2+ and symmetric, without bruits. No thyromegaly. No lymphadenopathy. CARDIOVASCULAR: Regular rate and rhythm. No murmurs, rubs, or gallops. Distal pulses are 2+ and symmetric. PULMONARY: No evidence of respiratory distress. Lungs clear to auscultation bilaterally. No wheezing, rales or rhonchi. ABDOMINAL: Soft. Non-tender. Non-distended. No rebound or guarding. No organomegaly. Normoactive bowel sounds. MUSCULOSKELETAL: Normal range of motion at all joints. No bony deformities or tenderness. No CVA tenderness. EXTREMITIES: No cyanosis. No clubbing. No edema. No calf tenderness. SKIN: Warm and dry. Normal capillary refill. No rashes. No jaundice. NEUROLOGICAL: Alert, awake, appropriate. Cranial nerves 2-12 intact. Gait is normal without ataxia. PSYCHIATRIC: +slightly anxious. Cooperative. Good eye contact. - Medical Decision Making 01/16/19 23:38 58 yo female p/w N,V,D and dizziness, feels she is "spinning". No chest pain , no CINTRON,no focal neuro deficits PMH she does have a history of vertigo and has taken meclizine in the past but sis not take it at home today 01/16/19 23:40 ekg was nsr w no signs of ischemia labs reviewed and her k=3.1 and it was supplemented she received zofran, IVF and meclizine and her symptoms resolved, pt discharged home imp: vertigo/gastroenteritis/hypokalemia
[2019-01-17 01:25] VITALS: BP 120/63; PULSE 80; TEMP 98
--- NOTE | 2019-01-17 11:20 | EKG ---
Test Reason : Blood Pressure : / mmHG Vent. Rate : 060 BPM Atrial Rate : 060 BPM P-R Int : 130 ms QRS Dur : 080 ms QT Int : 478 ms P-R-T Axes : 058 021 033 degrees QTc Int : 478 ms NORMAL SINUS RHYTHM NORMAL ECG WHEN COMPARED WITH ECG OF 11-MAR-2017 23:52, NO SIGNIFICANT CHANGE WAS FOUND Confirmed by MAYNOR DEL ROSARIO MD ([id number]) on 01/17/2019 11:20:25 AM Referred By: Confirmed By:MAYNOR DEL ROSARIO MD
--- NOTE | 2019-01-18 12:04 | EKG ---
Test Reason : Blood Pressure : / mmHG Vent. Rate : 062 BPM Atrial Rate : 062 BPM P-R Int : 146 ms QRS Dur : 080 ms QT Int : 474 ms P-R-T Axes : 057 003 020 degrees QTc Int : 481 ms NORMAL SINUS RHYTHM PROLONGED QT ABNORMAL ECG WHEN COMPARED WITH ECG OF 11-MAR-2017 23:52, NO SIGNIFICANT CHANGE WAS FOUND Confirmed by León Green MD ([id number]) on 01/18/2019 12:03:52 PM Referred By: Confirmed By:León Green MD
== END 2019-01-17 00:45 | disposition home or self-care (01) ==
LOC: JER 18:37
PROC: 3E033GC Introduction of Other Therapeutic Substance into Peripheral Vein, Percutaneous Approach (ICD-10-PCS; principal; 2019-01-16)
PROC: 3E033GC Introduction of Other Therapeutic Substance into Peripheral Vein, Percutaneous Approach (ICD-10-PCS; 2019-01-16)
PROC: 3E033NZ Introduction of Analgesics, Hypnotics, Sedatives into Peripheral Vein, Percutaneous Approach (ICD-10-PCS; 2019-01-16)
DX: E87.6 Hypokalemia (principal); E11.65 Type 2 diabetes mellitus with hyperglycemia; Z79.4 Long term (current) use of insulin; I10 Essential (primary) hypertension; E78.00 Pure hypercholesterolemia, unspecified; E03.9 Hypothyroidism, unspecified; F41.9 Anxiety disorder, unspecified
CPT/HCPCS: 36415; 71045-TC-FY; 80053; 82962; 83690; 84484; 85025; 93005; 93010; 96365; 96375; 99282-25; J0131

== ENCOUNTER 2019-06-17 12:56 | Emergency (ER) | payer OTHER ==
[2019-06-17 13:12] VITALS: BP 112/72; PULSE 95; TEMP 98.3; BMI 30.2
--- NOTE | 2019-06-17 13:39 | PDOC ---
History of Present Illness - General History Source: Patient Exam Limitations: No Limitations - History of Present Illness Initial Comments: 06/17/19 13:32 59 yo F w/ a h/o DM, kidney stones, anxiety, depression, HLD, thyroid disease comes in c/o 4 days of L sided flank/LLQ abdominal pain, burning/pain on urination, difficulty urination, (+)nausea, no vomiting. No fever but (+)chills , no other complaints today. (+)uncontrolled diabetes, in the 400s. <Lilo Reid - Last Filed: 06/17/19 15:50> <Lorie Fisher - Last Filed: 06/17/19 16:18> - General Chief Complaint: Back Pain Stated Complaint: LOWER BACK PAIN (KIDNEY) Time Seen by Provider: 06/17/19 13:28 Past History - Past Medical History Anemia: Yes Asthma: No Cancer: No Cardiac Disorders: Yes (DX WITH ENLARGED HEART) CVA: No COPD: No CHF: No Dementia: No Diabetes: Yes GI Disorders: Yes (gastritis) Disorders: Yes (KIDNEY STONES) HTN: No Hypercholesterolemia: Yes Liver Disease: No Psychiatric Problems: Yes (ANXIETY.) Seizures: No Thyroid Disease: Yes (HYPO.) - Surgical History Abdominal Surgery: No Appendectomy: No Cardiac Surgery: No Cholecystectomy: Yes Lung Surgery: No Neurologic Surgery: No Orthopedic Surgery: Yes (ROTATOR CUFF REPAIR X2 LEFT ARM) - Immunization History Immunization Up to Date: Yes - Psycho Social/Smoking Cessation Hx Smoking Status: No Smoking History: Unknown if ever smoked Have you smoked in the past 12 months: No Number of Cigarettes Smoked Daily: 0 If you are a former smoker, when did you quit?: years ago Hx Alcohol Use: No Drug/Substance Use Hx: No Substance Use Type: None Hx Substance Use Treatment: No <Lilo Reid - Last Filed: 06/17/19 15:50> <Lorie Fisher - Last Filed: 06/17/19 16:18> - Past Medical History Allergies/Adverse Reactions: Allergies Allergy/AdvReac Type Severity Reaction Status Date / Time oxycodone Allergy Severe Verified 06/17/19 13:07 Home Medications: Ambulatory Orders Sitagliptin Phos/Metformin HCl [Janumet 50-1,000 mg Tablet] 1 each PO BID Zolpidem Tartrate [Ambien] 10 mg PO HS 06/18/17 Albuterol Sulfate Inhaler - [Ventolin Hfa Inhaler -] 1 - 2 inh PO Q4H 01/12/18 Atorvastatin Calcium 40 mg PO DAILY 01/12/18 Levothyroxine [Synthroid -] 25 mcg PO DAILY 01/12/18 Escitalopram Oxalate 20 mg PO DAILY 10/08/18 Insulin Glargine,Hum.rec.anlog [Carlos Schwab U-100] 50 unit SQ ASDIR Review of Systems - Review of Systems Able to Perform ROS?: Yes Constitutional: Yes: Chills. No: Fever, Malaise, Night Sweats HEENTM: No: Eye Pain, Recent change in vision, Throat Pain Respiratory: No: Cough, Shortness of Breath Cardiac (ROS): No: Chest Pain, Palpitations, Chest Tightness ABD/GI: Yes: Nausea, Abdominal cramping. No: Diarrhea, Vomiting : Yes: Burning, Dysuria, Urgency. No: Hematuria Musculoskeletal: No: Back Pain Integumentary: No: Rash Neurological: No: Headache, Numbness, Dizziness Psychiatric: No: Change in Appetite Endocrine: No: Unexplained Weight Loss <Lilo Reid - Last Filed: 06/17/19 15:50> *Physical Exam - Vital Signs Last Vital Signs Temp Pulse Resp BP Pulse Ox 98.3 F 95 H 22 H 112/72 96 06/17/19 13:11 06/17/19 13:11 06/17/19 13:11 06/17/19 13:11 06/17/19 13:11 - Physical Exam General Appearance: Yes: Nourished. No: Apparent Distress HEENT: positive: L[place], Normal ENT Inspection, Normal Voice. negative: Pale Conjunctivae, Scleral Icterus (R), Scleral Icterus (L) Neck: positive: Supple. negative: Decreased range of motion, Tender midline Respiratory/Chest: positive: Lungs Clear, Normal Breath Sounds. negative: Respiratory Distress, Accessory Muscle Use Cardiovascular: positive: Regular Rhythm, Regular Rate Gastrointestinal/Abdominal: positive: Normal Bowel Sounds, Tender (LLQ), Soft Musculoskeletal: positive: Normal Inspection, CVA Tenderness (L). negative: Decreased Range of Motion Extremity: positive: Normal Capillary Refill, Normal Inspection, Normal Range of Motion. negative: Tender, Pedal Edema Integumentary: positive: Normal Color, Dry. negative: Jaundice, Rash Neurologic: positive: Fully Oriented, Alert, Normal Mood/Affect <Lilo Reid - Last Filed: 06/17/19 15:50> - Vital Signs Last Vital Signs Temp Pulse Resp BP Pulse Ox 98.3 F 95 H 22 H 112/72 96 06/17/19 13:11 06/17/19 13:11 06/17/19 13:11 06/17/19 13:11 06/17/19 13:11 <Lorie Fisher - Last Filed: 06/17/19 16:18> ED Treatment Course - LABORATORY CBC & Chemistry Diagram: 06/17/19 14:00 06/17/19 14:00 <Lilo Reid - Last Filed: 06/17/19 15:50> - LABORATORY CBC & Chemistry Diagram: 06/17/19 14:00 06/17/19 14:00 - ADDITIONAL ORDERS Additional order review: Laboratory Results 06/17/19 06/17/19 15:03 14:00 Sodium 136 Potassium 4.0 Chloride 100 Carbon Dioxide 28 Anion Gap 8 BUN 16.1 Creatinine 0.8 Est GFR (CKD-EPI)AfAm 93.53 Est GFR (CKD-EPI)NonAf 80.70 Random Glucose 291 H Calcium 10.2 H Total Bilirubin 0.3 AST 15 ALT 19 Alkaline Phosphatase 176 H Total Protein 8.7 H Albumin 3.8 Lipase 286 Urine Color Yellow Urine Appearance Turbid Urine pH 5.5 Ur Specific [place] 1.023 Urine Protein 1+ H Urine Glucose (UA) 3+ H Urine Ketones Trace H Urine Blood Trace Urine Nitrite Negative Urine Bilirubin Negative Urine Urobilinogen 0.2 Ur Leukocyte Esterase 2+ H Urine WBC (Auto) 1373 Urine RBC (Auto) 19 Urine Casts (Auto) 3 U Epithel Cells (Auto) 3.2 06/17/19 14:00 RBC 4.79 MCV 77.6 L MCHC 33.4 RDW 14.7 MPV 8.8 Neutrophils % 70.4 Lymphocytes % 21.5 D Monocytes % 5.0 Eosinophils % 2.1 Basophils % 1.0 - Medications Given in the ED: ED Medications Discontinued Medications Generic Name Dose Route Start Last Admin Trade Name Freq PRN Reason Stop Dose Admin Acetaminophen 1,000 mg 11/01/19 13:42 06/17/19 14:38 Ofirmev Injection - IVPB 06/17/19 13:43 1,000 mg ONCE ONE Administration Sodium Chloride 1,000 mls @ 1,000 mls/hr 06/17/19 13:42 06/17/19 14:37 Normal Saline - IV 06/17/19 14:41 1,000 mls/hr ASDIR STA Administration Ketorolac Tromethamine 15 mg 06/17/19 13:42 06/17/19 14:39 Toradol Injection - IVPUSH 06/17/19 13:43 15 mg ONCE ONE Administration <Lorie Fisher - Last Filed: 06/17/19 16:18> Medical Decision Making - Medical Decision Making 06/17/19 13:36 59 yo F w/ h/o kidney stones, DM comes in p/w L sided flank pain, chills and dysuria. R/O infected stone Will check UA, Ucx, line and lab, CBC, CMP, will give toradol tylenol IV and will do a sono kidneys. Ct on 05/20 shows no hydronephrosis, no stones. 06/17/19 13:40 06/17/19 15:51 Change of shift, care of patient signed over to TRAFFIC OPERATOR [place] who will follow up sono results. If there is hydronephrosis, pt will need CT. If sono is WNLs, pt can be treated as a pyelonephritis because UA is positive for infection. <Lilo Reid - Last Filed: 06/17/19 15:50> - Medical Decision Making The patient was seen and evaluated in conjunction with midlevel provider under my direct supervision, ancillary studies were reviewed. I agree with the plan as outlined with_. HPI, workup/dispo as outlined. VS reviewed, wnl. Laboratory results are reviewed, UA does appear infected so we will treat empirically for an infection. Renal sonogram to start to evaluate for hydronephrosis. But she did have CT imaging from last month negative for stones or renal pathology. If hydro-could be infected stone, if negative treat empirically as an infection. 06/17/19 16:17 <Lorie Fisher - Last Filed: 06/17/19 16:18> Discharge - Discharge Information Problems reviewed: Yes <Lilo Reid - Last Filed: 06/17/19 15:50> <Lorie Fisher - Last Filed: 06/17/19 16:18> - Discharge Information Clinical Impression/Diagnosis: Flank pain - Follow up/Referral Referrals: Giovany Miller MD [Primary Care Provider] -
[2019-06-17] MEDS ORDERED: ACETAMINOPHEN 1000 MG/100 ML VIAL (NON FORMULARY) IVPB ONE (13:42)
[2019-06-17] MEDS ORDERED: SODIUM CHLORIDE 1,000 ML IV STA (13:42)
[2019-06-17] MEDS ORDERED: KETOROLAC TROMETHAMINE 15 MG/ML VIAL IVPUSH ONE (13:42)
[2019-06-17] MEDS ORDERED: ACETAMINOPHEN INJECTION 100 ML IVPB ONE (14:20)
[2019-06-17] MEDS ORDERED: KETOROLAC TROMETHAMINE 15 MG/ML VIAL ONE (14:20)
[2019-06-17 14:33] LABS: EOS % 2.1 % (0-4.5); HEMATOCRIT 37.2 % (32.4-45.2); HEMOGLOBIN 12.4 GM/dL (10.7-15.3); LYMPH % 21.5 % (8-40); MCH 25.9 pg (25.7-33.7); MCHC 33.4 g/dl (32.0-36.0); MEAN CELL VOLUME 77.6 fl (80-96); MEAN PLT VOLUME 8.8 fl (7.5-11.1); NEUT % 70.4 % (42.8-82.8); PLATELET COUNT 303 K/MM3 (134-434); RBC 4.79 M/mm3 (3.60-5.2); RDW 14.7 % (11.6-15.6); WHITE BLOOD COUNT 7.4 K/mm3 (4.0-10.0)
[2019-06-17 15:05] LABS: ALBUMIN 3.8 g/dl (3.4-5.0); BILIRUBIN,TOTAL 0.3 mg/dL (0.2-1); BLOOD UREA NITROGEN 16.1 mg/dL (7-18); CALCIUM 10.2 mg/dL (8.5-10.1); CREATININE 0.8 mg/dL (0.55-1.3); TOT PROT 8.7 g/dl (6.4-8.2)
[2019-06-17 15:36] LABS: EPI CELLS 3.2 /HPF (0-5/HPF); HYALINE CASTS 3 /lpf (0-8); PH,URINE 5.5 (5.0-8.0); URINE APPEARANCE TURBID; URINE BILIRUBIN NEGATIVE (NEGATIVE); URINE COLOR YELLOW; URINE GLUCOSE (UA) 3+ (NEGATIVE); URINE KETONE TRACE (NEGATIVE); URINE LEUK ESTERASE 2+ (NEGATIVE); URINE NITRITE NEGATIVE (NEGATIVE); URINE PROTEIN 1+ (NEGATIVE); URINE RBC 19 /hpf (0-4); URINE UROBILINOGEN 0.2 mg/dL (0.2-1.0); URINE WBC 1373 /hpf (0-5)
--- NOTE | 2019-06-17 16:11 | PDOC ---
*Physical Exam - Vital Signs Last Vital Signs Temp Pulse Resp BP Pulse Ox 98.3 F 95 H 22 H 112/72 96 06/17/19 13:11 06/17/19 13:11 06/17/19 13:11 06/17/19 13:11 06/17/19 13:11 - Physical Exam General Appearance: Yes: Appropriately Dressed. No: Apparent Distress Respiratory/Chest: positive: Lungs Clear, Normal Breath Sounds. negative: Respiratory Distress, Accessory Muscle Use Cardiovascular: positive: Regular Rhythm, Regular Rate Gastrointestinal/Abdominal: positive: Normal Bowel Sounds, Soft. negative: Tender Musculoskeletal: positive: Normal Inspection. negative: CVA Tenderness Extremity: positive: Normal Capillary Refill, Normal Inspection ED Treatment Course - LABORATORY CBC & Chemistry Diagram: 06/17/19 14:00 06/17/19 14:00 - ADDITIONAL ORDERS Additional order review: Laboratory Results 06/17/19 06/17/19 15:03 14:00 Sodium 136 Potassium 4.0 Chloride 100 Carbon Dioxide 28 Anion Gap 8 BUN 16.1 Creatinine 0.8 Est GFR (CKD-EPI)AfAm 93.53 Est GFR (CKD-EPI)NonAf 80.70 Random Glucose 291 H Calcium 10.2 H Total Bilirubin 0.3 AST 15 ALT 19 Alkaline Phosphatase 176 H Total Protein 8.7 H Albumin 3.8 Lipase 286 Urine Color Yellow Urine Appearance Turbid Urine pH 5.5 Ur Specific [place] 1.023 Urine Protein 1+ H Urine Glucose (UA) 3+ H Urine Ketones Trace H Urine Blood Trace Urine Nitrite Negative Urine Bilirubin Negative Urine Urobilinogen 0.2 Ur Leukocyte Esterase 2+ H Urine WBC (Auto) 1373 Urine RBC (Auto) 19 Urine Casts (Auto) 3 U Epithel Cells (Auto) 3.2 06/17/19 14:00 RBC 4.79 MCV 77.6 L MCHC 33.4 RDW 14.7 MPV 8.8 Neutrophils % 70.4 Lymphocytes % 21.5 D Monocytes % 5.0 Eosinophils % 2.1 Basophils % 1.0 - Medications Given in the ED: ED Medications Discontinued Medications Generic Name Dose Route Start Last Admin Trade Name Freq PRN Reason Stop Dose Admin Acetaminophen 1,000 mg 06/17/19 13:42 06/17/19 14:38 Ofirmev Injection - IVPB 06/17/19 13:43 1,000 mg ONCE ONE Administration Sodium Chloride 1,000 mls @ 1,000 mls/hr 06/17/19 13:42 06/17/19 14:37 Normal Saline - IV 06/17/19 14:41 1,000 mls/hr ASDIR STA Administration Ketorolac Tromethamine 15 mg 06/17/19 13:42 06/17/19 14:39 Toradol Injection - IVPUSH 06/17/19 13:43 15 mg ONCE ONE Administration ED Progress Note - Progress Note Progress Note: 06/17/19 16:11 Received center from BLAN[facility] Hernandez. Briefly this is a 59-year-old woman history of diabetes, kidney stones, anxiety , depression, hyperlipidemia, thyroid disease with 4 days of life flank pain and dysuria. Patient with CAT scan performed 1 month ago showing no kidney stones at that time. Patient is afebrile CBC is unremarkable Chemistries show slightly elevated glucose at 291 and elevated alk phos at 176. Urinalysis with 1+ protein, 3+ glucose, trace ketones, 2+ leukoesterase and 1373 WBCs on high-power field. Patient is pending ultrasound of the kidneys to evaluate for hydronephrosis. The absence of hydronephrosis plans to treat for pyelonephritis as an outpatient. If stones are noted consult will be performed the patient to be admitted. Medical Decision Making - Medical Decision Making 06/17/19 16:34 Ultrasound was read by Dr. Markham: There is no hydronephrosis. There is no definite intrarenal or pararenal fluid collection. No discrete calculus or mass lesion is identified within the limits of sonography. No gross evidence of pyelonephritis. Sonography is a very limited sensitivity in this regard. 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 Impression: Negative exam. No definite sonographic abnormality is identified. We will discharge patient home with prescription for Keflex 500 mg 3 times daily for the next 2 weeks. I discussed the physical exam findings, ancillary test results and final diagnoses with the patient. I answered all of the patient's questions. The patient was satisfied with the care received and felt comfortable with the discharge plan and treatment plan. The patient will call their primary care physician within 24 hours to arrange follow-up and will return to the Emergency Department with any new, persistent or worsening symptoms. Discharge - Discharge Information Problems reviewed: Yes Clinical Impression/Diagnosis: Pyelonephritis Condition: Fair Disposition: HOME - Admission No - Additional Discharge Information Prescriptions: Cephalexin Monohydrate [Keflex -] 500 mg PO Q8H #42 capsule - Follow up/Referral Referrals: Giovany Miller MD [Primary Care Provider] - - Patient Discharge Instructions Additional Instructions: Rest, drink lots of fluids: Teas, water, soups Avoid contact with others until fevers and symptoms resolved Lots of handwashing and good hygiene Continue [id number] medications for symptomatic relief Tylenol or Motrin for fever and pain Continue all of antibiotics until completed Followup with private physician in one week for repeat urinalysis/reevaluation Return to emergency department for worsened symptoms, fevers, dehydration olga Harvey muchos lquidos: Ts, agcristobal, sopas Evite el contacto con otros hasta que las fiebres y los sntomas se resuelvan Un montn de lavado de yael y buena higiene Contine los medicamentos sin receta para el alivio sintomtico Tylenol o Motrin para la fiebre y el dolor Continuar todos los antibiticos hasta completarse Seguimiento con mdico privado en jeremiah semana para repetir anlisis de orina / reevaluacin Volver al servicio de urgencias por sntomas empeorados, fiebres, deshidratacin - Post Discharge Activity
[2019-06-17 18:40] LABS: URINE BACTERIA 22748.1 /hpf (NEGATIVE)
== END 2019-06-17 16:30 | disposition home or self-care (01) ==
LOC: JER 12:56
PROC: 3E033NZ Introduction of Analgesics, Hypnotics, Sedatives into Peripheral Vein, Percutaneous Approach (ICD-10-PCS; principal; 2019-06-17)
PROC: 3E0333Z Introduction of Anti-inflammatory into Peripheral Vein, Percutaneous Approach (ICD-10-PCS; 2019-06-17)
DX: R10.32 Left lower quadrant pain (principal); N20.0 Calculus of kidney; E11.9 Type 2 diabetes mellitus without complications; Z88.6 Allergy status to analgesic agent; Z87.891 Personal history of nicotine dependence; F41.9 Anxiety disorder, unspecified; E03.9 Hypothyroidism, unspecified; E78.00 Pure hypercholesterolemia, unspecified; K52.9 Noninfective gastroenteritis and colitis, unspecified
CPT/HCPCS: 36415; 76775-TC; 80053; 81003; 83690; 85025; 87086; 87186; 96374; 96375; 99281-25; J0131; J7030

== ENCOUNTER 2020-07-02 09:34 | Day surgery (SDC) | payer OTHER ==
[2020-07-02] MEDS ORDERED: PROPOFOL 20 ML ONE ×2 (11:19)
[2020-07-02 12:32] VITALS: PULSE 86; TEMP 98.1
[2020-07-02 12:36] VITALS: BP 114/64
== END 2020-07-02 12:15 | disposition home or self-care (01) ==
LOC: FASU-ENDO 09:34
PROVIDERS: ATTEND Internal Medicine Gastroenterology
PROC: 0DB68ZX Excision of Stomach, Via Natural or Artificial Opening Endoscopic, Diagnostic (ICD-10-PCS; 2020-07-02)
PROC: 0DB58ZX Excision of Esophagus, Via Natural or Artificial Opening Endoscopic, Diagnostic (ICD-10-PCS; 2020-07-02)
PROC: 0D748DZ Dilation of Esophagogastric Junction with Intraluminal Device, Via Natural or Artificial Opening Endoscopic (ICD-10-PCS; 2020-07-02)
PROC: 0DB98ZX Excision of Duodenum, Via Natural or Artificial Opening Endoscopic, Diagnostic (ICD-10-PCS; principal; 2020-07-02 11:31)
DX: K22.2 Esophageal obstruction (principal); K44.9 Diaphragmatic hernia without obstruction or gangrene; K29.50 Unspecified chronic gastritis without bleeding; K31.9 Disease of stomach and duodenum, unspecified; K21.00 Gastro-esophageal reflux disease with esophagitis, without bleeding
CPT/HCPCS: 82962; 88305-TC; 88342-TC

== ENCOUNTER 2020-07-16 05:45 | Inpatient (IN) | payer OTHER ==
[2020-07-16] MEDS ORDERED: ONDANSETRON 4 MG/2 ML VIAL IVPUSH ONE (05:57)
[2020-07-16 06:01] VITALS: BMI 26.2
[2020-07-16 06:06] LABS: BASO % 1.1 % (0-2.0); EOS % 1.5 % (0-4.5); HEMATOCRIT 34.3 % (32.4-45.2); HEMOGLOBIN 11.2 GM/dL (10.7-15.3); LYMPH % 6.6 % (8-40); MCH 25.6 pg (25.7-33.7); MCHC 32.8 g/dl (32.0-36.0); MEAN CELL VOLUME 78.1 fl (80-96); MEAN PLT VOLUME 8.4 fl (7.5-11.1); MONO % 5.6 % (3.8-10.2); NEUT % 85.2 % (42.8-82.8); PLATELET COUNT 265 K/MM3 (134-434); RBC 4.39 M/mm3 (3.60-5.2); RDW 14.8 % (11.6-15.6); WHITE BLOOD COUNT 9.7 K/mm3 (4.0-10.0)
[2020-07-16] MEDS ORDERED: ACETAMINOPHEN 1000 MG/100 ML VIAL (NON FORMULARY) IVPB ONE (06:10)
[2020-07-16 06:21] LABS: INR 1.08 (0.83-1.09); PROTHROMBIN TIME (PATIENT) 13.2 SEC (9.7-13.0)
[2020-07-16 06:23] LABS: CHLORIDE 98 mmol/L (98-107); POTASSIUM 3.6 mmol/L (3.5-5.1); SODIUM 133 mmol/L (136-145)
[2020-07-16 06:24] LABS: ACTIVATED PTT 31.1 SECONDS (25.2-36.5)
[2020-07-16] MEDS ORDERED: ACETAMINOPHEN INJECTION 100 ML IVPB ONE (06:24)
[2020-07-16 06:26] LABS: ALBUMIN 3.7 g/dl (3.4-5.0); ANION GAP 13 MMOL/L (8-16); BLOOD UREA NITROGEN 15.2 mg/dL (7-18); CALCIUM 9.8 mg/dL (8.5-10.1); CO2 22 mmol/L (21-32); GLUCOSE,RANDOM 353 mg/dL (74-106); LIPASE 209 U/L (73-393)
[2020-07-16 06:29] LABS: SGOT/AST 147 U/L (15-37); SGPT/ALT 63 U/L (13-61)
[2020-07-16 06:31] LABS: BILIRUBIN,TOTAL 0.8 mg/dL (0.2-1); TOT PROT 8.1 g/dl (6.4-8.2)
[2020-07-16 06:32] LABS: ALK PHOS 199 U/L (45-117)
[2020-07-16] MEDS ORDERED: SODIUM CHLORIDE 1,000 ML IV STA (06:41)
[2020-07-16] MEDS ORDERED: SODIUM CHLORIDE 0.9% 1000 ML INFUS.BAG IV ONE (07:28)
[2020-07-16 10:48] LABS: URINE APPEARANCE CLEAR; URINE BILIRUBIN NEGATIVE (NEGATIVE); URINE COLOR DK YELLOW; URINE KETONE 15 mg/dl (NEGATIVE); URINE PROTEIN NEGATIVE (NEGATIVE)
[2020-07-16 10:49] LABS: EPI CELLS 7.3 /uL (0-25.1); URINE LEUK ESTERASE NEGATIVE (NEGATIVE); URINE NITRITE POSITIVE (NEGATIVE); URINE RBC 0.6 /uL (0-23.9); URINE WBC 5.6 /uL (0-25.8)
[2020-07-16 10:50] LABS: URINE BACTERIA 146.1 /uL (0-1359)
[2020-07-16] MEDS ORDERED: CEFTRIAXONE 1,000 MG in DEXTROSE 5%-WATER - 50 ML IVPB ONE (10:51)
[2020-07-16] MEDS ORDERED: CEFTRIAXONE 1 GM/50 ML BAG ONE ×2 (11:46→16:44)
[2020-07-16] MEDS ORDERED: LORazepam 2 MG TABLET PO ONE (11:50)
[2020-07-16] MEDS ORDERED: MAGNESIUM SULF 50% (8.12 MEQ/2 ML-1 GM VIAL) IVPB ONE (11:53)
[2020-07-16] MEDS ORDERED: LORazepam 0.5 MG TABLET ONE (12:20)
[2020-07-16] MEDS ORDERED: MAGNESIUM SULFATE IN WATER 2 GM/50 ML IVPB IVPB ONE (12:20)
[2020-07-16] MEDS ORDERED: MORPHINE SULFATE 2 MG/ML VIAL IVPUSH PRN (13:09)
[2020-07-16] MEDS: SODIUM CHLORIDE 1,000 ML IV SCH ×2 (13:19→20:51)
[2020-07-16] MEDS ORDERED: ONDANSETRON 4 MG/2 ML VIAL IVPUSH PRN (14:00)
[2020-07-16] MEDS ORDERED: HEPARIN NA (PORCINE) 5,000 UNITS/ML 1ML VIAL ONE (16:45)
[2020-07-16] MEDS: INSULIN SLIDING SCALE (NOVOLOG) 1 VIAL SQ SCH ×2 (17:38→21:09)
[2020-07-16] MEDS: HEPARIN NA (PORCINE) 5,000 UNITS/ML 1ML VIAL SQ SCH (17:39)
[2020-07-16] MEDS ORDERED: ESCITALOPRAM OXALATE 20 MG TABLET PO ONE (20:26)
[2020-07-16] MEDS ORDERED: INSULIN (NOVOLOG) ASPART 100 UNITS/ML 10ML VIAL ONE (21:04)
[2020-07-16] MEDS ORDERED: ZOLPIDEM TARTRATE 5 MG TABLET PO PRN (22:00)
[2020-07-17] MEDS: HEPARIN NA (PORCINE) 5,000 UNITS/ML 1ML VIAL SQ SCH ×2 (01:44→09:00)
[2020-07-17] MEDS ORDERED: INSULIN (NOVOLOG) ASPART 100 UNITS/ML 10ML VIAL ONE (06:30)
[2020-07-17 06:34] LABS: BASO % 0.4 % (0-2.0); EOS % 4.1 % (0-4.5); HEMATOCRIT 29.6 % (32.4-45.2); HEMOGLOBIN 9.7 GM/dL (10.7-15.3); LYMPH % 19.7 % (8-40); MCH 25.6 pg (25.7-33.7); MCHC 32.9 g/dl (32.0-36.0); MEAN PLT VOLUME 8.4 fl (7.5-11.1); NEUT % 66.8 % (42.8-82.8); PLATELET COUNT 214 K/MM3 (134-434); RDW 15.2 % (11.6-15.6); WHITE BLOOD COUNT 5.2 K/mm3 (4.0-10.0)
[2020-07-17] MEDS: INSULIN SLIDING SCALE (NOVOLOG) 1 VIAL SQ SCH ×2 (06:46→11:25)
[2020-07-17 07:03] LABS: POTASSIUM 3.8 mmol/L (3.5-5.1)
[2020-07-17 07:08] LABS: ALBUMIN 2.9 g/dl (3.4-5.0); BLOOD UREA NITROGEN 9.4 mg/dL (7-18); CALCIUM 8.5 mg/dL (8.5-10.1); MAGNESIUM 1.7 mg/dL (1.8-2.4)
[2020-07-17 07:11] LABS: PHOSPHOROUS 3.1 mg/dL (2.5-4.9)
[2020-07-17 07:12] LABS: BILIRUBIN,TOTAL 0.8 mg/dL (0.2-1)
[2020-07-17 07:13] LABS: CREATININE 0.6 mg/dL (0.55-1.3); TOT PROT 6.7 g/dl (6.4-8.2)
[2020-07-17] MEDS ORDERED: PNEUMOC 13-VAL CONJ-DIP CRM/PF 0.5 ML DISP.SYRIN IM ONE (07:54)
[2020-07-17] MEDS ORDERED: cefTRIAXone SODIUM 1 GM VIAL ONE (08:42)
[2020-07-17] MEDS ORDERED: DEXTROSE 5%-WATER - 50 ML IVPB ONE (08:42)
[2020-07-17] MEDS ORDERED: PANTOPRAZOLE SODIUM 40 MG VIAL IVPUSH SCH (10:00)
[2020-07-17] MEDS ORDERED: CEFTRIAXONE 1 GM in DEXTROSE 5%-WATER - 50 ML IVPB SCH (10:00)
[2020-07-17] MEDS ORDERED: ESCITALOPRAM OXALATE 20 MG TABLET PO SCH (10:00)
[2020-07-17] MEDS ORDERED: PNEUMOCOCCAL 23 VACCINE 0.5 ML VIAL IM ONE (10:00)
[2020-07-17 10:53] VITALS: BP 110/64; PULSE 88; TEMP 98.2
[2020-07-17] MEDS ORDERED: ACETAMINOPHEN 1000 MG/100 ML VIAL (NON FORMULARY) IVPB ONE (12:15)
[2020-07-17] MEDS ORDERED: ACETAMINOPHEN 325 MG TABLET (FP) PO PRN (12:31)
== END 2020-07-17 15:44 | disposition home or self-care (01) | DRG 463 ==
LOC: JER 05:45 → JERBED 11:11 → MERGE 11:11 → J7W 18:24
PROVIDERS: ADMIT Internal Medicine; ATTEND Nurse Practitioner Acute Care
DX: N39.0 Urinary tract infection, site not specified (principal); R11.2 Nausea with vomiting, unspecified; E87.2 Acidosis; E11.9 Type 2 diabetes mellitus without complications; E78.5 Hyperlipidemia, unspecified; G47.00 Insomnia, unspecified; K21.9 Gastro-esophageal reflux disease without esophagitis; I72.2 Aneurysm of renal artery; K44.9 Diaphragmatic hernia without obstruction or gangrene; D64.9 Anemia, unspecified; K57.10 Diverticulosis of small intestine without perforation or abscess without bleeding; K22.70 Barrett's esophagus without dysplasia; K76.0 Fatty (change of) liver, not elsewhere classified; Z87.442 Personal history of urinary calculi
CPT/HCPCS: 36415; 71045-TC-FY; 74177-TC; 80053; 80061; 81003; 82550; 82962; 83036; 83540; 83550; 83605; 83690; 83721; 83735; 84100; 84443; 84484; 85025; 85610; 85730; 86850; 86900; 86901; 87040; 87086; 90732; 93005; 93010; 99285-25; C9803; G0009; J0131; J1644; Q9967; U0003

== ENCOUNTER 2020-11-03 15:13 | Emergency (ER) | payer OTHER ==
[2020-11-03 15:49] VITALS: TEMP 98.2; BMI 27.4
[2020-11-03] MEDS ORDERED: FAMOTIDINE 20 MG/50 ML IVPB 20 MG/50 ML MG IVPB ONE ×2 (16:01→16:14)
[2020-11-03] MEDS ORDERED: ONDANSETRON 4 MG/2 ML VIAL IVPUSH ONE (16:01)
[2020-11-03] MEDS ORDERED: ONDANSETRON 4 MG/2 ML VIAL ONE (16:14)
[2020-11-03] MEDS ORDERED: LACTATED RINGERS SOLUTION 1000 ML INFUS.BAG IV ONE (16:17)
[2020-11-03 16:21] LABS: VENOUS O2 SATURATION 51.9 % (70-80); VENOUS PCO2 33.7 mmHg (38-52); VENOUS PH 7.425 (7.310-7.410)
[2020-11-03 16:22] LABS: BASO % 0.8 % (0-2.0); HEMATOCRIT 38.6 % (32.4-45.2); HEMOGLOBIN 12.7 GM/dL (10.7-15.3); LYMPH % 15.9 % (8-40); MEAN CELL VOLUME 78.8 fl (80-96); MEAN PLT VOLUME 8.3 fl (7.5-11.1); MONO % 5.4 % (3.8-10.2); NEUT % 76.9 % (42.8-82.8); PLATELET COUNT 376 K/MM3 (134-434); RBC 4.89 M/mm3 (3.60-5.2); RDW 14.2 % (11.6-15.6); WHITE BLOOD COUNT 10.1 K/mm3 (4.0-10.0)
[2020-11-03 16:42] LABS: CHLORIDE 101 mmol/L (98-107); POTASSIUM 3.9 mmol/L (3.5-5.1); SODIUM 134 mmol/L (136-145)
[2020-11-03 16:44] LABS: ALBUMIN 3.9 g/dl (3.4-5.0); ANION GAP 10 MMOL/L (8-16); BLOOD UREA NITROGEN 15.1 mg/dL (7-18); CALCIUM 10.6 mg/dL (8.5-10.1); CO2 23 mmol/L (21-32); LIPASE 146 U/L (73-393); MAGNESIUM 1.5 mg/dL (1.8-2.4)
[2020-11-03 16:45] LABS: GLUCOSE,RANDOM 310 mg/dL (74-106)
[2020-11-03] MEDS ORDERED: MAGNESIUM SULF 50% (8.12 MEQ/2 ML-1 GM VIAL) IVPB ONE (16:46)
[2020-11-03 16:47] LABS: CREATININE 0.9 mg/dL (0.55-1.3); SGOT/AST 17 U/L (15-37); SGPT/ALT 17 U/L (13-61)
[2020-11-03 16:49] LABS: BILIRUBIN,TOTAL 0.4 mg/dL (0.2-1); TOT PROT 8.7 g/dl (6.4-8.2)
[2020-11-03 16:50] LABS: ALK PHOS 201 U/L (45-117)
[2020-11-03] MEDS ORDERED: MAGNESIUM SULFATE IN WATER 2 GM/50 ML IVPB IVPB ONE (16:55)
[2020-11-03 17:22] VITALS: PULSE 88
[2020-11-03 18:10] LABS: EPI CELLS >36 /uL (0-25.1); HYALINE CASTS 14 /uL (0-3.1); PH,URINE 5.5 (5.0-8.0); URINE APPEARANCE TURBID; URINE BACTERIA 696 /uL (0-1359); URINE BILIRUBIN NEGATIVE (NEGATIVE); URINE COLOR DK YELLOW; URINE GLUCOSE (UA) 3+ (NEGATIVE); URINE KETONE 2+ (NEGATIVE); URINE LEUK ESTERASE 1+ (NEGATIVE); URINE NITRITE NEGATIVE (NEGATIVE); URINE PROTEIN 3+ (NEGATIVE); URINE UROBILINOGEN 0.2 mg/dL (0.2-1.0); URINE WBC 1942 /uL (0-25.8)
[2020-11-03 18:26] LABS: URINE RBC 36.4 /uL (0-23.9)
[2020-11-03 19:29] VITALS: BP 124/93
== END 2020-11-03 19:29 | disposition home or self-care (01) ==
LOC: JER 15:13
PROC: 3E033NZ Introduction of Analgesics, Hypnotics, Sedatives into Peripheral Vein, Percutaneous Approach (ICD-10-PCS; principal; 2020-11-03)
PROC: 3E033GC Introduction of Other Therapeutic Substance into Peripheral Vein, Percutaneous Approach (ICD-10-PCS; 2020-11-03)
DX: R10.13 Epigastric pain (principal); R11.2 Nausea with vomiting, unspecified
CPT/HCPCS: 36415; 71045-TC-FY; 80053; 81003; 82550; 82553; 82803; 82962; 83690; 83735; 84484; 85025; 87086; 93005; 93010; 99285-25

== ENCOUNTER 2020-12-23 15:01 | Emergency (ER) | payer OTHER ==
[2020-12-23 15:18] VITALS: TEMP 98.1; BMI 24.0
[2020-12-23] MEDS ORDERED: SODIUM CHLORIDE 1,000 ML IV STA ×2 (15:30→17:08)
[2020-12-23] MEDS ORDERED: FAMOTIDINE 20 MG/50 ML IVPB 20 MG/50 ML MG IVPB ONE ×2 (15:54→16:15)
[2020-12-23] MEDS ORDERED: ONDANSETRON 4 MG/2 ML VIAL IVPUSH ONE (15:54)
[2020-12-23] MEDS ORDERED: MAG HYDROX/AL HYDROX/SIMETH 30 ML UNIT-DOSE CUP PO ONE (15:55)
[2020-12-23] MEDS ORDERED: ACETAMINOPHEN 1000 MG/100 ML VIAL (NON FORMULARY) IVPB ONE (15:55)
[2020-12-23] MEDS ORDERED: INSULIN REGULAR HUMAN 100 UNITS/ML *VIAL IVPUSH ONE ×3 (15:57→19:05)
[2020-12-23] MEDS ORDERED: INSULIN (LEVEMIR) 100 UNITS/ML UNITS SQ ONE (15:58)
[2020-12-23] MEDS ORDERED: ACETAMINOPHEN INJECTION 100 ML IVPB ONE (16:15)
[2020-12-23] MEDS ORDERED: ONDANSETRON 4 MG/2 ML VIAL ONE (16:15)
[2020-12-23] MEDS ORDERED: MAG HYDROX/AL HYDROX/SIMETH 30 ML UNIT-DOSE CUP ONE (16:31)
[2020-12-23 16:36] LABS: VENOUS BASE EXCESS -6.2 mmol/L (-2-2); VENOUS PCO2 28.4 mmHg (38-52); VENOUS PH 7.399 (7.310-7.410)
[2020-12-23 16:39] LABS: BASO % 0.4 % (0-2.0); LYMPH % 16.6 % (8-40); MCH 26.6 pg (25.7-33.7); MCHC 34.2 g/dl (32.0-36.0); MEAN CELL VOLUME 77.9 fl (80-96); MEAN PLT VOLUME 9.1 fl (7.5-11.1); MONO % 4.5 % (3.8-10.2); NEUT % 77.5 % (42.8-82.8); PLATELET COUNT 296 K/MM3 (134-434); RBC 4.87 M/mm3 (3.60-5.2); RDW 14.3 % (11.6-15.6); WHITE BLOOD COUNT 9.2 K/mm3 (4.0-10.0)
[2020-12-23 16:51] LABS: CHLORIDE 96 mmol/L (98-107); SODIUM 131 mmol/L (136-145)
[2020-12-23 16:54] LABS: ALBUMIN 3.9 g/dl (3.4-5.0); ANION GAP 13 MMOL/L (8-16); BLOOD UREA NITROGEN 15.6 mg/dL (7-18); CALCIUM 9.4 mg/dL (8.5-10.1); CO2 22 mmol/L (21-32); MAGNESIUM 1.6 mg/dL (1.8-2.4)
[2020-12-23 16:55] LABS: LIPASE 93 U/L (73-393)
[2020-12-23] MEDS ORDERED: MAGNESIUM SULF 50% (8.12 MEQ/2 ML-1 GM VIAL) IVPB ONE (16:55)
[2020-12-23 16:57] LABS: CREATININE 0.9 mg/dL (0.55-1.3); SGOT/AST 33 U/L (15-37); SGPT/ALT 16 U/L (13-61)
[2020-12-23 16:58] LABS: BILIRUBIN,TOTAL 0.6 mg/dL (0.2-1)
[2020-12-23 16:59] LABS: TOT PROT 8.4 g/dl (6.4-8.2)
[2020-12-23 17:00] LABS: ALK PHOS 191 U/L (45-117)
[2020-12-23 17:06] LABS: GLUCOSE,RANDOM 442 mg/dL (74-106)
[2020-12-23] MEDS ORDERED: MAGNESIUM 1GM/D5W - 1 GM/100 ML IVPB IVPB ONE (17:41)
[2020-12-23 19:14] LABS: URINE APPEARANCE CLEAR; URINE BILIRUBIN NEGATIVE (NEGATIVE); URINE COLOR YELLOW; URINE GLUCOSE (UA) 3+ (NEGATIVE); URINE KETONE 3+ (NEGATIVE); URINE LEUK ESTERASE NEGATIVE (NEGATIVE); URINE NITRITE NEGATIVE (NEGATIVE); URINE PROTEIN TRACE (NEGATIVE); URINE UROBILINOGEN 0.2 mg/dL (0.2-1.0)
[2020-12-23 20:34] VITALS: BP 120/82; PULSE 84
== END 2020-12-23 20:34 | disposition home or self-care (01) ==
LOC: JER 15:01
PROC: 3E033NZ Introduction of Analgesics, Hypnotics, Sedatives into Peripheral Vein, Percutaneous Approach (ICD-10-PCS; principal; 2020-12-23)
PROC: 3E0337Z Introduction of Electrolytic and Water Balance Substance into Peripheral Vein, Percutaneous Approach (ICD-10-PCS; 2020-12-23)
PROC: 3E033GC Introduction of Other Therapeutic Substance into Peripheral Vein, Percutaneous Approach (ICD-10-PCS; 2020-12-23)
PROC: 3E013VG Introduction of Insulin into Subcutaneous Tissue, Percutaneous Approach (ICD-10-PCS; 2020-12-23)
DX: R11.2 Nausea with vomiting, unspecified (principal); E11.65 Type 2 diabetes mellitus with hyperglycemia
CPT/HCPCS: 36415; 71045-TC-FY; 80053; 81003; 82010; 82550; 82803; 82962; 83690; 83735; 84132; 84484; 85025; 87077; 87086; 93005; 93010; 99285-25; C9803; J0131; U0003; U0005

== ENCOUNTER 2021-03-23 22:16 | Emergency (ER) | payer OTHER ==
[2021-03-23 22:29] VITALS: BP 99/64; PULSE 102; BMI 25.9
[2021-03-24] MEDS ORDERED: LIDOCAINE 5% TOPICAL PATCH TP ONE (00:15)
[2021-03-24] MEDS ORDERED: LIDOCAINE 5% TOPICAL PATCH ONE (00:38)
[2021-03-24] MEDS ORDERED: LIDOCAINE PATCH REMOVAL MC SCH (22:00)
== END 2021-03-24 01:58 | disposition home or self-care (01) ==
LOC: JER 22:16
DX: M25.512 Pain in left shoulder (principal); X50.0XXA Overexertion from strenuous movement or load, initial encounter
CPT/HCPCS: 73030-TC-LT-FY; 99283-25

== ENCOUNTER 2021-04-16 15:19 | Emergency (ER) | payer OTHER ==
[2021-04-16 15:28] VITALS: BP 117/75; PULSE 105; TEMP 98.2; BMI 26.9
[2021-04-16] MEDS ORDERED: METHOCARBAMOL 500 MG TABLET PO ONE (16:28)
[2021-04-16] MEDS ORDERED: LIDOCAINE 5% TOPICAL PATCH TP ONE (16:28)
[2021-04-16] MEDS ORDERED: ACETAMINOPHEN 325 MG TABLET (FP) PO ONE (16:28)
[2021-04-16] MEDS ORDERED: LIDOCAINE 5% TOPICAL PATCH ONE (16:56)
[2021-04-16] MEDS ORDERED: METHOCARBAMOL 500 MG TABLET ONE (16:56)
[2021-04-16] MEDS ORDERED: ACETAMINOPHEN 500 MG TABLET (FP) ONE (16:56)
[2021-04-16 17:44] LABS: BASO % 0.8 % (0-2.0); EOS % 3.1 % (0-4.5); HEMATOCRIT 33.2 % (32.4-45.2); HEMOGLOBIN 11.3 GM/dL (10.7-15.3); LYMPH % 25.7 % (8-40); MCH 26.2 pg (25.7-33.7); MCHC 33.8 g/dl (32.0-36.0); MEAN CELL VOLUME 77.4 fl (80-96); MONO % 6.2 % (3.8-10.2); NEUT % 64.2 % (42.8-82.8); PLATELET COUNT 317 10^3/uL (134-434); RDW 14.4 % (11.6-15.6); WHITE BLOOD COUNT 7.9 K/mm3 (4.0-10.0)
[2021-04-16 17:52] LABS: INR 1.15 (0.83-1.09); PROTHROMBIN TIME (PATIENT) 14.1 SEC (9.7-13.0)
[2021-04-16 18:08] LABS: CHLORIDE 106 mmol/L (98-107); SODIUM 138 mmol/L (136-145)
[2021-04-16 18:10] LABS: ANION GAP 9 MMOL/L (8-16); BLOOD UREA NITROGEN 15.5 mg/dL (7-18); CALCIUM 9.4 mg/dL (8.5-10.1); CO2 23 mmol/L (21-32); GLUCOSE,RANDOM 170 mg/dL (74-106)
[2021-04-16 18:11] LABS: ALBUMIN 3.4 g/dl (3.4-5.0)
[2021-04-16 18:13] LABS: CREATININE 0.7 mg/dL (0.55-1.3)
[2021-04-16 18:14] LABS: SGOT/AST 30 U/L (15-37); SGPT/ALT 43 U/L (13-61)
[2021-04-16 18:15] LABS: BILIRUBIN,TOTAL 0.3 mg/dL (0.2-1); TOT PROT 8.2 g/dl (6.4-8.2)
[2021-04-16 18:16] LABS: ALK PHOS 187 U/L (45-117)
[2021-04-16] MEDS ORDERED: LIDOCAINE PATCH REMOVAL MC SCH (22:00)
== END 2021-04-16 19:55 | disposition home or self-care (01) ==
LOC: JERFT 15:19
DX: M94.0 Chondrocostal junction syndrome [Tietze] (principal); M62.838 Other muscle spasm; V49.50XA Passenger injured in collision with unspecified motor vehicles in traffic accident, initial encounter
CPT/HCPCS: 36415; 71046-TC-FY; 72040-TC; 73590-TC-LT-FY; 80053; 82550; 84484; 85025; 85610; 93005; 93010; 99285-25

== ENCOUNTER 2021-04-29 11:50 | Emergency (ER) | payer OTHER ==
[2021-04-29 12:10] VITALS: BMI 26.1
[2021-04-29] MEDS ORDERED: ONDANSETRON 4 MG/2 ML VIAL IVPUSH ONE ×2 (13:00→15:17)
[2021-04-29] MEDS ORDERED: SODIUM CHLORIDE 0.9% 500 ML INFUS.BAG IV ONE (13:01)
[2021-04-29] MEDS ORDERED: MAG HYDROX/AL HYDROX/SIMETH -MYLANTA- ORAL SUSPENSION PO ONE (13:02)
[2021-04-29] MEDS ORDERED: FAMOTIDINE 20 MG/50 ML IVPB 20 MG/50 ML MG IVPB ONE ×2 (13:02→14:34)
[2021-04-29] MEDS ORDERED: ACETAMINOPHEN 1000 MG/100 ML VIAL (NON FORMULARY) IVPB ONE (13:06)
[2021-04-29] MEDS ORDERED: ACETAMINOPHEN INJECTION 100 ML IVPB ONE (14:33)
[2021-04-29] MEDS ORDERED: MAG HYDROX/AL HYDROX/SIMETH 30 ML UNIT-DOSE CUP ONE (14:34)
[2021-04-29] MEDS ORDERED: ONDANSETRON 4 MG/2 ML VIAL ONE ×2 (14:34→15:56)
[2021-04-29 15:28] LABS: BASO % 0.8 % (0-2.0); EOS % 2.3 % (0-4.5); HEMATOCRIT 35.7 % (32.4-45.2); HEMOGLOBIN 12.1 GM/dL (10.7-15.3); LYMPH % 25.1 % (8-40); MCH 26.5 pg (25.7-33.7); MCHC 33.9 g/dl (32.0-36.0); MEAN PLT VOLUME 8.5 fl (7.5-11.1); MONO % 5.7 % (3.8-10.2); NEUT % 66.1 % (42.8-82.8); PLATELET COUNT 362 10^3/uL (134-434); RBC 4.58 M/mm3 (3.60-5.2); RDW 14.3 % (11.6-15.6)
[2021-04-29 15:45] LABS: CHLORIDE 104 mmol/L (98-107); SODIUM 139 mmol/L (136-145)
[2021-04-29 15:47] LABS: CALCIUM 9.9 mg/dL (8.5-10.1)
[2021-04-29 15:48] LABS: ALBUMIN 3.6 g/dl (3.4-5.0); ANION GAP 10 MMOL/L (8-16); BLOOD UREA NITROGEN 11.8 mg/dL (7-18); CO2 25 mmol/L (21-32); GLUCOSE,RANDOM 156 mg/dL (74-106)
[2021-04-29 15:51] LABS: CREATININE 0.8 mg/dL (0.55-1.3); SGOT/AST 24 U/L (15-37); SGPT/ALT 36 U/L (13-61)
[2021-04-29 15:53] LABS: BILIRUBIN,TOTAL 0.4 mg/dL (0.2-1); TOT PROT 8.6 g/dl (6.4-8.2)
[2021-04-29 15:54] LABS: ALK PHOS 204 U/L (45-117)
[2021-04-29 16:33] LABS: LIPASE 174 U/L (73-393)
[2021-04-29 17:01] LABS: EPI CELLS 16 /uL (0-25.1); HYALINE CASTS 19 /uL (0-3.1); PH,URINE 5.5 (5.0-8.0); URINE APPEARANCE CLOUDY; URINE BILIRUBIN NEGATIVE (NEGATIVE); URINE COLOR YELLOW; URINE GLUCOSE (UA) NEGATIVE (NEGATIVE); URINE KETONE NEGATIVE (NEGATIVE); URINE LEUK ESTERASE 1+ (NEGATIVE); URINE NITRITE NEGATIVE (NEGATIVE); URINE PROTEIN 1+ (NEGATIVE); URINE RBC 14 /uL (0-23.9); URINE UROBILINOGEN 0.2 mg/dL (0.2-1.0); URINE WBC 586 /uL (0-25.8)
[2021-04-29 18:13] VITALS: BP 124/68; PULSE 79; TEMP 98.8
== END 2021-04-29 18:50 | disposition home or self-care (01) ==
LOC: JER 11:50
PROC: 3E033GC Introduction of Other Therapeutic Substance into Peripheral Vein, Percutaneous Approach (ICD-10-PCS; principal; 2021-04-29)
DX: K21.9 Gastro-esophageal reflux disease without esophagitis (principal); K44.9 Diaphragmatic hernia without obstruction or gangrene; R11.2 Nausea with vomiting, unspecified; E11.9 Type 2 diabetes mellitus without complications
CPT/HCPCS: 36415; 71046-TC-FY; 80053; 81003; 82550; 83690; 84484; 85025; 87086; 87186; 93005; 93010; 96365; 96375; 96376; 99285-25; J0131

== ENCOUNTER 2021-05-16 11:09 | Emergency (ER) | payer OTHER ==
[2021-05-16 11:16] VITALS: TEMP 98.9; BMI 26.1
[2021-05-16] MEDS ORDERED: SODIUM CHLORIDE 1,000 ML IV STA (12:03)
[2021-05-16] MEDS ORDERED: ONDANSETRON 4 MG/2 ML VIAL IVPUSH ONE ×2 (12:04→13:46)
[2021-05-16] MEDS ORDERED: ACETAMINOPHEN 1000 MG/100 ML VIAL (NON FORMULARY) IVPB ONE (12:04)
[2021-05-16] MEDS ORDERED: morphine CARPU-JECT 4 MG/1 ML DISP.SYRIN IVPUSH ONE (12:04)
[2021-05-16] MEDS ORDERED: morphine SULFATE 4 MG/ML VIAL ONE (12:06)
[2021-05-16] MEDS ORDERED: ONDANSETRON 4 MG/2 ML VIAL ONE ×2 (12:06→13:59)
[2021-05-16] MEDS ORDERED: ACETAMINOPHEN INJECTION 100 ML IVPB ONE (12:06)
[2021-05-16 12:21] LABS: BASO % 0.8 % (0-2.0); EOS % 2.9 % (0-4.5); HEMATOCRIT 36.3 % (32.4-45.2); HEMOGLOBIN 12.2 GM/dL (10.7-15.3); LYMPH % 25.6 % (8-40); MCH 26.5 pg (25.7-33.7); MCHC 33.6 g/dl (32.0-36.0); MEAN CELL VOLUME 78.9 fl (80-96); MEAN PLT VOLUME 8.4 fl (7.5-11.1); MONO % 7.2 % (3.8-10.2); NEUT % 63.5 % (42.8-82.8); PLATELET COUNT 330 10^3/uL (134-434); RDW 14.6 % (11.6-15.6); WHITE BLOOD COUNT 8.2 K/mm3 (4.0-10.0)
[2021-05-16 12:26] LABS: INR 1.06 (0.83-1.09)
[2021-05-16 12:46] LABS: ALBUMIN 3.8 g/dl (3.4-5.0); BLOOD UREA NITROGEN 12.8 mg/dL (7-18)
[2021-05-16 12:50] LABS: CREATININE 0.8 mg/dL (0.55-1.3)
[2021-05-16 12:51] LABS: BILIRUBIN,TOTAL 0.4 mg/dL (0.2-1); TOT PROT 8.6 g/dl (6.4-8.2)
[2021-05-16] MEDS ORDERED: METOCLOPRAMIDE HCL INJECTION 10 MG/2 ML VIAL IVPB ONE (13:46)
[2021-05-16] MEDS ORDERED: METOCLOPRAMIDE HCL INJECTION 10 MG/2 ML VIAL ONE (14:22)
[2021-05-16 18:10] LABS: EPI CELLS 18 /uL (0-25.1); HYALINE CASTS 1 /uL (0-3.1); PH,URINE 5.5 (5.0-8.0); URINE APPEARANCE CLEAR; URINE BACTERIA 15 /uL (0-1359); URINE BILIRUBIN NEGATIVE (NEGATIVE); URINE COLOR YELLOW; URINE GLUCOSE (UA) 1+ (NEGATIVE); URINE KETONE TRACE (NEGATIVE); URINE LEUK ESTERASE TRACE (NEGATIVE); URINE NITRITE NEGATIVE (NEGATIVE); URINE PROTEIN TRACE (NEGATIVE); URINE RBC 5 /uL (0-23.9); URINE UROBILINOGEN 0.2 mg/dL (0.2-1.0); URINE WBC 41 /uL (0-25.8)
[2021-05-16 19:20] VITALS: BP 133/64; PULSE 81
== END 2021-05-16 19:20 | disposition home or self-care (01) ==
LOC: JER 11:09
PROC: 3E0333Z Introduction of Anti-inflammatory into Peripheral Vein, Percutaneous Approach (ICD-10-PCS; principal; 2021-05-16)
PROC: 3E033GC Introduction of Other Therapeutic Substance into Peripheral Vein, Percutaneous Approach (ICD-10-PCS; 2021-05-16)
PROC: 3E033NZ Introduction of Analgesics, Hypnotics, Sedatives into Peripheral Vein, Percutaneous Approach (ICD-10-PCS; 2021-05-16)
PROC: 3E033GC Introduction of Other Therapeutic Substance into Peripheral Vein, Percutaneous Approach (ICD-10-PCS; 2021-05-16)
PROC: 3E033GC Introduction of Other Therapeutic Substance into Peripheral Vein, Percutaneous Approach (ICD-10-PCS; 2021-05-16)
PROC: 3E0337Z Introduction of Electrolytic and Water Balance Substance into Peripheral Vein, Percutaneous Approach (ICD-10-PCS; 2021-05-16)
DX: N20.0 Calculus of kidney (principal)
CPT/HCPCS: 36415; 74176-TC; 80053; 81003; 85025; 85610; 87077; 87086; 93005; 93010; 99285-25; J0131

== ENCOUNTER 2021-07-05 04:40 | Emergency (ER) | payer OTHER ==
[2021-07-05 04:53] VITALS: BMI 25.4
[2021-07-05] MEDS ORDERED: ACETAMINOPHEN 1000 MG/100 ML VIAL IVPB ONE (04:57)
[2021-07-05] MEDS ORDERED: LACTATED RINGERS SOLUTION 1000 ML INFUS.BAG IV ONE (04:57)
[2021-07-05] MEDS ORDERED: MAG HYDROX/AL HYDROX/SIMETH 30 ML UNIT-DOSE CUP ONE (05:03)
[2021-07-05] MEDS ORDERED: ACETAMINOPHEN INJECTION 100 ML IVPB ONE (05:03)
[2021-07-05] MEDS ORDERED: FAMOTIDINE 20 MG/50 ML IVPB 20 MG/50 ML MG IVPB ONE ×2 (05:03→05:14)
[2021-07-05] MEDS ORDERED: ONDANSETRON 4 MG/2 ML VIAL ONE (05:04)
[2021-07-05] MEDS ORDERED: ONDANSETRON 4 MG/2 ML VIAL IVPUSH ONE (05:14)
[2021-07-05 05:37] LABS: BASO % 0.9 % (0-2.0); EOS % 1.7 % (0-4.5); HEMOGLOBIN 11.4 GM/dL (10.7-15.3); LYMPH % 24.6 % (8-40); MCH 26.8 pg (25.7-33.7); MCHC 34.6 g/dl (32.0-36.0); MEAN CELL VOLUME 77.4 fl (80-96); MEAN PLT VOLUME 8.4 fl (7.5-11.1); MONO % 6.6 % (3.8-10.2); NEUT % 66.2 % (42.8-82.8); PLATELET COUNT 319 10^3/uL (134-434); RBC 4.27 M/mm3 (3.60-5.2); RDW 15.1 % (11.6-15.6)
[2021-07-05 05:51] LABS: CHLORIDE 105 mmol/L (98-107); SODIUM 139 mmol/L (136-145)
[2021-07-05 05:53] LABS: CALCIUM 9.6 mg/dL (8.5-10.1)
[2021-07-05 05:54] LABS: ALBUMIN 3.6 g/dl (3.4-5.0); ANION GAP 8 MMOL/L (8-16); BLOOD UREA NITROGEN 10.9 mg/dL (7-18); CO2 26 mmol/L (21-32); GLUCOSE,RANDOM 155 mg/dL (74-106); LIPASE 179 U/L (73-393); MAGNESIUM 1.5 mg/dL (1.8-2.4)
[2021-07-05 05:57] LABS: CREATININE 0.7 mg/dL (0.55-1.3); PHOSPHOROUS 3.5 mg/dL (2.5-4.9); SGOT/AST 13 U/L (15-37); SGPT/ALT 20 U/L (13-61)
[2021-07-05 05:58] LABS: BILIRUBIN,TOTAL 0.3 mg/dL (0.2-1); TOT PROT 8.1 g/dl (6.4-8.2)
[2021-07-05 06:00] LABS: ALK PHOS 158 U/L (45-117)
[2021-07-05] MEDS ORDERED: MAGNESIUM OXIDE 400 MG TABLET (FP) PO ONE (06:40)
[2021-07-05] MEDS ORDERED: MAGNESIUM OXIDE 400 MG TABLET (FP) ONE (06:48)
[2021-07-05 07:11] VITALS: BP 129/76; PULSE 82; TEMP 97.7
== END 2021-07-05 07:20 | disposition home or self-care (01) ==
LOC: JER 04:40
PROC: 3E033NZ Introduction of Analgesics, Hypnotics, Sedatives into Peripheral Vein, Percutaneous Approach (ICD-10-PCS; principal; 2021-07-05)
PROC: 3E033GC Introduction of Other Therapeutic Substance into Peripheral Vein, Percutaneous Approach (ICD-10-PCS; 2021-07-05)
PROC: 3E033GC Introduction of Other Therapeutic Substance into Peripheral Vein, Percutaneous Approach (ICD-10-PCS; 2021-07-05)
DX: R11.2 Nausea with vomiting, unspecified (principal)
CPT/HCPCS: 36415; 71045-TC-FY; 80053; 83605; 83690; 83735; 84100; 84443; 84484; 85025; 93005; 93010; 99285-25; J0131

== ENCOUNTER 2021-07-19 02:54 | Emergency (ER) | payer OTHER ==
[2021-07-19 03:02] VITALS: BP 106/60; TEMP 97.7; BMI 25.2
[2021-07-19] MEDS ORDERED: ACETAMINOPHEN 1000 MG/100 ML VIAL IVPB ONE (03:17)
[2021-07-19] MEDS ORDERED: FAMOTIDINE 20 MG/50 ML IVPB 20 MG/50 ML MG IVPB ONE (03:17)
[2021-07-19] MEDS ORDERED: ONDANSETRON 4 MG/2 ML VIAL IVPUSH ONE (03:17)
[2021-07-19] MEDS ORDERED: SODIUM CHLORIDE 0.9% 1000 ML INFUS.BAG IV ONE (03:23)
[2021-07-19] MEDS ORDERED: ONDANSETRON 4 MG/2 ML VIAL ONE (03:23)
[2021-07-19] MEDS ORDERED: ACETAMINOPHEN INJECTION 100 ML IVPB ONE (03:23)
[2021-07-19] MEDS ORDERED: FAMOTIDINE/PF 20 MG/2 ML VIAL IVPB ONE (03:30)
[2021-07-19] MEDS ORDERED: LORazepam 2 MG/ML SDV VIAL IVPUSH ONE (03:36)
[2021-07-19] MEDS ORDERED: LORazepam 2 MG/ML SDV VIAL ONE (03:36)
[2021-07-19 03:58] LABS: HEMATOCRIT 32.6 % (32.4-45.2); MCH 26.5 pg (25.7-33.7); MCHC 33.9 g/dl (32.0-36.0); MEAN CELL VOLUME 78.3 fl (80-96); MEAN PLT VOLUME 8.2 fl (7.5-11.1); MONO % 6.1 % (3.8-10.2); NEUT % 69.9 % (42.8-82.8); PLATELET COUNT 301 10^3/uL (134-434); RBC 4.17 M/mm3 (3.60-5.2); RDW 15.3 % (11.6-15.6); WHITE BLOOD COUNT 8.7 K/mm3 (4.0-10.0)
[2021-07-19 04:22] LABS: CHLORIDE 105 mmol/L (98-107); SODIUM 137 mmol/L (136-145)
[2021-07-19 04:24] LABS: CALCIUM 9.2 mg/dL (8.5-10.1)
[2021-07-19 04:25] LABS: ALBUMIN 3.3 g/dl (3.4-5.0); ANION GAP 10 MMOL/L (8-16); BLOOD UREA NITROGEN 12.6 mg/dL (7-18); CO2 23 mmol/L (21-32); GLUCOSE,RANDOM 187 mg/dL (74-106); LIPASE 158 U/L (73-393)
[2021-07-19 04:27] LABS: CREATININE 0.8 mg/dL (0.55-1.3)
[2021-07-19 04:28] LABS: SGOT/AST 15 U/L (15-37); SGPT/ALT 16 U/L (13-61)
[2021-07-19 04:29] LABS: BILIRUBIN,TOTAL 0.4 mg/dL (0.2-1); TOT PROT 7.6 g/dl (6.4-8.2)
[2021-07-19 04:30] LABS: ALK PHOS 157 U/L (45-117)
[2021-07-19 05:15] VITALS: PULSE 95
== END 2021-07-19 05:21 ==
LOC: JER 02:54
PROC: 3E033GC Introduction of Other Therapeutic Substance into Peripheral Vein, Percutaneous Approach (ICD-10-PCS; principal; 2021-07-19)
DX: R11.10 Vomiting, unspecified (principal)
CPT/HCPCS: 36415; 71046-TC-FY; 80053; 83690; 83735; 84484; 85025; 93005; 93010; 99285-25; C9803; J0131; U0003; U0005

== ENCOUNTER 2021-10-29 14:44 | Observation (INO) | payer OTHER ==
[2021-10-29] MEDS ORDERED: MAG HYDROX/AL HYDROX/SIMETH -MYLANTA- ORAL SUSPENSION PO ONE (15:52)
[2021-10-29] MEDS ORDERED: morphine CARPU-JECT 4 MG/1 ML DISP.SYRIN IVPUSH ONE (15:52)
[2021-10-29] MEDS ORDERED: ONDANSETRON 4 MG/2 ML VIAL IVPUSH ONE (15:53)
[2021-10-29] MEDS ORDERED: SODIUM CHLORIDE 1,000 ML IV STA (15:53)
[2021-10-29] MEDS ORDERED: morphine SULFATE 4 MG/ML VIAL ONE (16:09)
[2021-10-29] MEDS ORDERED: ONDANSETRON 4 MG/2 ML VIAL ONE (16:10)
[2021-10-29] MEDS ORDERED: MAG HYDROX/AL HYDROX/SIMETH 30 ML UNIT-DOSE CUP ONE (16:10)
[2021-10-29] MEDS ORDERED: METOCLOPRAMIDE HCL INJECTION 10 MG/2 ML VIAL IVPB ONE (16:18)
[2021-10-29 16:36] LABS: BASO % 1.2 % (0-2.0); EOS % 1.8 % (0-4.5); HEMATOCRIT 35.2 % (32.4-45.2); HEMOGLOBIN 11.5 GM/dL (10.7-15.3); LYMPH % 28.4 % (8-40); MCHC 32.8 g/dl (32.0-36.0); MEAN CELL VOLUME 79.4 fl (80-96); MEAN PLT VOLUME 8.4 fl (7.5-11.1); MONO % 6.4 % (3.8-10.2); NEUT % 62.2 % (42.8-82.8); PLATELET COUNT 334 10^3/uL (134-434); RBC 4.43 M/mm3 (3.60-5.2); RDW 14.5 % (11.6-15.6); WHITE BLOOD COUNT 7.8 K/mm3 (4.0-10.0)
[2021-10-29 16:56] LABS: ALBUMIN 3.7 g/dl (3.4-5.0); BLOOD UREA NITROGEN 11.2 mg/dL (7-18); CALCIUM 9.7 mg/dL (8.5-10.1)
[2021-10-29 16:59] LABS: CREATININE 0.8 mg/dL (0.55-1.3)
[2021-10-29 17:01] LABS: BILIRUBIN,TOTAL 0.4 mg/dL (0.2-1); TOT PROT 7.8 g/dl (6.4-8.2)
[2021-10-29] MEDS ORDERED: METOCLOPRAMIDE HCL INJECTION 10 MG/2 ML VIAL ONE (17:39)
[2021-10-29 17:54] LABS: MAGNESIUM 1.3 mg/dL (1.8-2.4)
[2021-10-29 22:28] LABS: PH,URINE 5.5 (5.0-8.0); URINE APPEARANCE CLEAR; URINE BILIRUBIN NEGATIVE (NEGATIVE); URINE COLOR YELLOW; URINE GLUCOSE (UA) NEGATIVE (NEGATIVE); URINE KETONE TRACE (NEGATIVE); URINE LEUK ESTERASE NEGATIVE (NEGATIVE); URINE NITRITE NEGATIVE (NEGATIVE); URINE PROTEIN TRACE (NEGATIVE); URINE UROBILINOGEN 0.2 mg/dL (0.2-1.0)
[2021-10-29] MEDS ORDERED: TRIMETHOBENZAMIDE HCL 200MG/2ML INJ IM PRN (23:06)
[2021-10-29] MEDS ORDERED: MAGNESIUM SULFATE IN WATER 2 GM/50 ML IVPB IVPB ONE (23:12)
[2021-10-29] MEDS ORDERED: SODIUM CHLORIDE 1,000 ML IV SCH (23:15)
[2021-10-29] MEDS ORDERED: ACETAMINOPHEN 1000 MG/100 ML BAG IVPB PRN (23:26)
[2021-10-29] MEDS: KCL 10 MEQ IVPB 10 MEQ/100 ML INFUS.BAG IVPB SCH (23:57)
[2021-10-30] MEDS: MAGNESIUM SULF 50% (8.12 MEQ/2 ML-1 GM VIAL) IVPB SCH ×2 (01:01→06:05)
[2021-10-30] MEDS: KCL 10 MEQ IVPB 10 MEQ/100 ML INFUS.BAG IVPB SCH (01:49)
[2021-10-30 05:10] VITALS: BP 143/63; PULSE 74; TEMP 98.7; BMI 24.5
[2021-10-30] MEDS: INSULIN SLIDING SCALE (NOVOLOG) 1 VIAL SQ SCH ×3 (06:07→16:38)
[2021-10-30 07:35] LABS: INR 1.17 (0.83-1.09); PROTHROMBIN TIME (PATIENT) 13.5 SEC (9.7-13.0)
[2021-10-30 08:03] LABS: BLOOD UREA NITROGEN 7.2 mg/dL (7-18); CALCIUM 8.6 mg/dL (8.5-10.1)
[2021-10-30 08:04] LABS: MAGNESIUM 2.3 mg/dL (1.8-2.4)
[2021-10-30 08:06] LABS: BILIRUBIN,TOTAL 0.5 mg/dL (0.2-1); TOT PROT 6.6 g/dl (6.4-8.2)
[2021-10-30 08:07] LABS: CREATININE 0.7 mg/dL (0.55-1.3)
[2021-10-30] MEDS ORDERED: MAGNESIUM 2GM/50ML STERILE WATER IVPB IVPB ONE (10:00)
[2021-10-30] MEDS ORDERED: INSULIN (NOVOLOG) ASPART 100 UNITS/ML 10ML VIAL ONE (11:43)
[2021-10-30] MEDS ORDERED: ACETAMINOPHEN 325 MG TABLET (FP) PO ONE (16:19)
== END 2021-10-30 17:00 | disposition home or self-care (01) ==
LOC: JER 14:44 → JERBED 21:50 → INTOOBSV 21:50 → J7W 10-30 04:54
PROVIDERS: ADMIT Internal Medicine; ATTEND Internal Medicine
PROC: 3E033NZ Introduction of Analgesics, Hypnotics, Sedatives into Peripheral Vein, Percutaneous Approach (ICD-10-PCS; principal; 2021-10-29)
PROC: 3E033GC Introduction of Other Therapeutic Substance into Peripheral Vein, Percutaneous Approach (ICD-10-PCS; 2021-10-29)
PROC: 3E033NZ Introduction of Analgesics, Hypnotics, Sedatives into Peripheral Vein, Percutaneous Approach (ICD-10-PCS; 2021-10-29)
PROC: 3E0337Z Introduction of Electrolytic and Water Balance Substance into Peripheral Vein, Percutaneous Approach (ICD-10-PCS; 2021-10-29)
DX: E11.43 Type 2 diabetes mellitus with diabetic autonomic (poly)neuropathy (principal); Z90.49 Acquired absence of other specified parts of digestive tract; K31.84 Gastroparesis; R11.10 Vomiting, unspecified; R10.13 Epigastric pain; F41.9 Anxiety disorder, unspecified; K44.9 Diaphragmatic hernia without obstruction or gangrene; K29.70 Gastritis, unspecified, without bleeding; N20.0 Calculus of kidney; Z29.9 Encounter for prophylactic measures, unspecified; Z88.6 Allergy status to analgesic agent; Z88.8 Allergy status to other drugs, medicaments and biological substances
CPT/HCPCS: 36415; 71045-TC-FY; 74177-TC; 80053; 80061; 81003; 82962; 83036; 83690; 83735; 84100; 84439; 84443; 84484; 85025; 85610; 87077; 87086; 93005; 93010; 96365; 96375; 96376; 99285-25; C9803; G0378; Q9967; U0003; U0005

== ENCOUNTER 2022-02-28 20:50 | Emergency (ER) | payer OTHER ==
[2022-02-28 21:00] VITALS: BP 113/66; PULSE 100; TEMP 98.2; BMI 22.6
[2022-02-28] MEDS ORDERED: SODIUM CHLORIDE 1,000 ML IV STA (21:20)
[2022-02-28] MEDS ORDERED: LACTATED RINGERS SOLUTION 1,000 ML IV STA (21:20)
[2022-02-28] MEDS ORDERED: FAMOTIDINE 20 MG/50 ML IVPB 20 MG/50 ML MG IVPB ONE ×2 (21:20→21:43)
[2022-02-28] MEDS ORDERED: METOCLOPRAMIDE HCL INJECTION 10 MG/2 ML VIAL IVPUSH ONE (21:20)
[2022-02-28] MEDS ORDERED: ACETAMINOPHEN 1000 MG/100 ML BAG IVPB ONE (21:20)
[2022-02-28] MEDS ORDERED: MAG HYDROX/AL HYDROX/SIMETH 30 ML UNIT-DOSE CUP PO ONE (21:21)
[2022-02-28] MEDS ORDERED: MAG HYDROX/AL HYDROX/SIMETH 30 ML UNIT-DOSE CUP ONE (21:43)
[2022-02-28] MEDS ORDERED: ACETAMINOPHEN INJECTION 100 ML IVPB ONE (21:43)
[2022-02-28] MEDS ORDERED: METOCLOPRAMIDE HCL INJECTION 10 MG/2 ML VIAL ONE (21:43)
[2022-02-28 22:26] LABS: VENOUS O2 SATURATION 30.5 % (70-80); VENOUS PCO2 46.9 mmHg (38-52); VENOUS PH 7.331 (7.310-7.410)
[2022-02-28 22:35] LABS: BASO % 0.7 % (0-2.0); EOS % 1.9 % (0-4.5); HEMATOCRIT 31.4 % (32.4-45.2); HEMOGLOBIN 10.8 GM/dL (10.7-15.3); INR 1.15 (0.83-1.09); LYMPH % 20.5 % (8-40); MCH 27.2 pg (25.7-33.7); MCHC 34.2 g/dl (32.0-36.0); MEAN CELL VOLUME 79.4 fl (80-96); MEAN PLT VOLUME 7.8 fl (7.5-11.1); MONO % 5.7 % (3.8-10.2); NEUT % 71.2 % (42.8-82.8); PLATELET COUNT 304 10^3/uL (134-434); PROTHROMBIN TIME (PATIENT) 13.2 SEC (9.7-13.0); RBC 3.96 M/mm3 (3.60-5.2); RDW 14.4 % (11.6-15.6); WHITE BLOOD COUNT 8.5 K/mm3 (4.0-10.0)
[2022-02-28 22:38] LABS: ACTIVATED PTT 34.9 SECONDS (25.2-36.5)
[2022-02-28 22:50] LABS: BLOOD UREA NITROGEN 18.2 mg/dL (7-18); CALCIUM 9.7 mg/dL (8.5-10.1); MAGNESIUM 1.4 mg/dL (1.8-2.4)
[2022-02-28 22:51] LABS: ALBUMIN 3.8 g/dl (3.4-5.0)
[2022-02-28 22:53] LABS: CREATININE 0.9 mg/dL (0.55-1.3)
[2022-02-28 22:55] LABS: TOT PROT 7.9 g/dl (6.4-8.2)
[2022-02-28 22:58] LABS: BILIRUBIN,TOTAL 0.4 mg/dL (0.2-1)
[2022-02-28] MEDS ORDERED: MAGNESIUM SULF 50% (8.12 MEQ/2 ML-1 GM VIAL) IVPB ONE (23:15)
[2022-02-28] MEDS ORDERED: MAGNESIUM SULFATE IN WATER 2 GM/50 ML IVPB IVPB ONE (23:54)
[2022-03-01 00:34] LABS: EPI CELLS 7 /uL (0-25.1); HYALINE CASTS 0 /uL (0-3.1); PH,URINE 5.5 (5.0-8.0); URINE APPEARANCE CLEAR; URINE BACTERIA 3 /uL (0-1359); URINE BILIRUBIN NEGATIVE (NEGATIVE); URINE COLOR YELLOW; URINE GLUCOSE (UA) NEGATIVE (NEGATIVE); URINE KETONE NEGATIVE (NEGATIVE); URINE LEUK ESTERASE TRACE (NEGATIVE); URINE NITRITE NEGATIVE (NEGATIVE); URINE PROTEIN NEGATIVE (NEGATIVE); URINE RBC 3 /uL (0-23.9); URINE UROBILINOGEN 0.2 mg/dL (0.2-1.0); URINE WBC 9 /uL (0-25.8)
[2022-03-01 02:25] LABS: PHOSPHOROUS 4.3 mg/dL (2.5-4.9)
== END 2022-03-01 01:49 | disposition home or self-care (01) ==
LOC: JER 20:50
PROC: 3E0333Z Introduction of Anti-inflammatory into Peripheral Vein, Percutaneous Approach (ICD-10-PCS; principal; 2022-02-28)
PROC: 3E033GC Introduction of Other Therapeutic Substance into Peripheral Vein, Percutaneous Approach (ICD-10-PCS; 2022-02-28)
PROC: 3E033GC Introduction of Other Therapeutic Substance into Peripheral Vein, Percutaneous Approach (ICD-10-PCS; 2022-02-28)
PROC: 3E033GC Introduction of Other Therapeutic Substance into Peripheral Vein, Percutaneous Approach (ICD-10-PCS; 2022-02-28)
DX: R11.2 Nausea with vomiting, unspecified (principal); R10.9 Unspecified abdominal pain
CPT/HCPCS: 0241U-QW; 36415; 71045-TC-FY; 74177-TC; 80053; 81003; 82803; 83605; 83690; 83735; 84100; 84484; 84703; 85025; 85610; 85730; 86850; 86900; 86901; 87086; 93005; 93010; 99285-25; Q9967

== ENCOUNTER 2022-05-09 13:23 | Emergency (ER) | payer OTHER ==
[2022-05-09 13:30] VITALS: BP 150/79; PULSE 87; RESP 19; BMI 23.8
[2022-05-09] MEDS ORDERED: morphine CARPU-JECT 2 MG/1 ML DISP.SYRIN IVPUSH ONE (14:22)
[2022-05-09] MEDS ORDERED: METOCLOPRAMIDE HCL INJECTION 10 MG/2 ML VIAL IVPUSH ONE (14:23)
[2022-05-09] MEDS ORDERED: PANTOPRAZOLE SODIUM 40 MG VIAL IVPUSH ONE (14:23)
[2022-05-09] MEDS ORDERED: SODIUM CHLORIDE 0.9% 500 ML INFUS.BAG IV ONE ×2 (14:23→16:00)
[2022-05-09] MEDS ORDERED: ONDANSETRON 4 MG/2 ML VIAL IVPUSH ONE (14:23)
[2022-05-09 14:58] LABS: BASO % 0.6 % (0-2.0); EOS % 1.5 % (0-4.5); HEMOGLOBIN 12.9 GM/dL (10.7-15.3); LYMPH % 16.5 % (8-40); MCH 27.3 pg (25.7-33.7); MCHC 33.9 g/dl (32.0-36.0); MEAN CELL VOLUME 80.7 fl (80-96); MEAN PLT VOLUME 8.3 fl (7.5-11.1); MONO % 5.4 % (3.8-10.2); PLATELET COUNT 371 10^3/uL (134-434); RBC 4.71 M/mm3 (3.60-5.2); WHITE BLOOD COUNT 8.8 K/mm3 (4.0-10.0)
[2022-05-09 15:10] LABS: INR 1.14 (0.83-1.09); PROTHROMBIN TIME (PATIENT) 13.1 SEC (9.7-13.0)
[2022-05-09] MEDS ORDERED: METOCLOPRAMIDE HCL INJECTION 10 MG/2 ML VIAL ONE (15:21)
[2022-05-09] MEDS ORDERED: ONDANSETRON 4 MG/2 ML VIAL ONE (15:21)
[2022-05-09] MEDS ORDERED: PANTOPRAZOLE SODIUM 40 MG VIAL ONE (15:21)
[2022-05-09 15:27] LABS: CHLORIDE 96 mmol/L (98-107); SODIUM 134 mmol/L (136-145)
[2022-05-09 15:28] LABS: ANION GAP 11 MMOL/L (8-16); BLOOD UREA NITROGEN 16.8 mg/dL (7-18); CALCIUM 10.2 mg/dL (8.5-10.1); CO2 26 mmol/L (21-32); LIPASE 133 U/L (73-393)
[2022-05-09 15:31] LABS: CREATININE 1.2 mg/dL (0.55-1.3); SGOT/AST 15 U/L (15-37); SGPT/ALT 17 U/L (13-61)
[2022-05-09 15:33] LABS: BILIRUBIN,TOTAL 0.5 mg/dL (0.2-1); TOT PROT 8.6 g/dl (6.4-8.2)
[2022-05-09 15:34] LABS: ALK PHOS 194 U/L (45-117)
[2022-05-09 15:39] LABS: GLUCOSE,RANDOM 402 mg/dL (74-106)
[2022-05-09] MEDS ORDERED: INSULIN REGULAR HUMAN 100 UNITS/ML *VIAL IVPUSH ONE (15:41)
[2022-05-09 19:04] LABS: EPI CELLS 31 /uL (0-25.1); HYALINE CASTS 3 /uL (0-3.1); PH,URINE 5.5 (5.0-8.0); URINE APPEARANCE CLEAR; URINE BACTERIA 130 /uL (0-1359); URINE BILIRUBIN NEGATIVE (NEGATIVE); URINE COLOR YELLOW; URINE GLUCOSE (UA) 3+ (NEGATIVE); URINE KETONE 1+ (NEGATIVE); URINE LEUK ESTERASE NEGATIVE (NEGATIVE); URINE NITRITE NEGATIVE (NEGATIVE); URINE PROTEIN 2+ (NEGATIVE); URINE RBC 16 /uL (0-23.9); URINE UROBILINOGEN 0.2 mg/dL (0.2-1.0); URINE WBC 28 /uL (0-25.8)
== END 2022-05-09 18:53 | disposition home or self-care (01) ==
LOC: JER 13:23
PROC: 3E013VG Introduction of Insulin into Subcutaneous Tissue, Percutaneous Approach (ICD-10-PCS; principal; 2022-05-09)
PROC: 3E033GC Introduction of Other Therapeutic Substance into Peripheral Vein, Percutaneous Approach (ICD-10-PCS; 2022-05-09)
PROC: 3E033NZ Introduction of Analgesics, Hypnotics, Sedatives into Peripheral Vein, Percutaneous Approach (ICD-10-PCS; 2022-05-09)
PROC: 3E033GC Introduction of Other Therapeutic Substance into Peripheral Vein, Percutaneous Approach (ICD-10-PCS; 2022-05-09)
PROC: 3E033GC Introduction of Other Therapeutic Substance into Peripheral Vein, Percutaneous Approach (ICD-10-PCS; 2022-05-09)
DX: R11.2 Nausea with vomiting, unspecified (principal)
CPT/HCPCS: 0241U-QW; 36415; 71046-TC-FY; 80053; 81003; 82962; 83690; 84484; 85025; 85610; 87086; 93005; 93010; 99285-25

== ENCOUNTER 2022-06-21 22:44 | Inpatient (IN) | payer OTHER ==
[2022-06-21 22:51] VITALS: BMI 22.4
[2022-06-21] MEDS ORDERED: SODIUM CHLORIDE 500 ML IV STA (23:10)
[2022-06-21 23:37] LABS: VENOUS BASE EXCESS -1.7 mmol/L (-2-2); VENOUS O2 SATURATION 51.8 % (70-80); VENOUS PCO2 33.7 mmHg (38-52); VENOUS PH 7.431 (7.310-7.410)
[2022-06-21 23:40] LABS: BASO % 0.7 % (0-2.0); EOS % 1.2 % (0-4.5); HEMATOCRIT 33.7 % (32.4-45.2); HEMOGLOBIN 11.3 GM/dL (10.7-15.3); LYMPH % 20.5 % (8-40); MCH 27.1 pg (25.7-33.7); MCHC 33.5 g/dl (32.0-36.0); MEAN CELL VOLUME 80.8 fl (80-96); MEAN PLT VOLUME 8.3 fl (7.5-11.1); MONO % 4.5 % (3.8-10.2); NEUT % 73.1 % (42.8-82.8); PLATELET COUNT 312 10^3/uL (134-434); RBC 4.17 M/mm3 (3.60-5.2); RDW 14.3 % (11.6-15.6); WHITE BLOOD COUNT 7.9 K/mm3 (4.0-10.0)
[2022-06-21 23:45] LABS: INR 1.03 (0.83-1.09); PROTHROMBIN TIME (PATIENT) 11.8 SEC (9.7-13.0)
[2022-06-21 23:53] LABS: ACTIVATED PTT 32.8 SECONDS (25.2-36.5)
[2022-06-21 23:58] LABS: CHLORIDE 93 mmol/L (98-107); SODIUM 128 mmol/L (136-145)
[2022-06-22] LABS: ANION GAP 13 MMOL/L (8-16); BLOOD UREA NITROGEN 15.3 mg/dL (7-18); CO2 21 mmol/L (21-32)
[2022-06-22 00:01] LABS: ALBUMIN 3.4 g/dl (3.4-5.0)
[2022-06-22 00:03] LABS: CREATININE 1.2 mg/dL (0.55-1.3)
[2022-06-22 00:04] LABS: PH,URINE 5.5 (5.0-8.0); URINE APPEARANCE Error; URINE BILIRUBIN NEGATIVE (NEGATIVE); URINE COLOR YELLOW; URINE GLUCOSE (UA) 3+ (NEGATIVE); URINE KETONE NEGATIVE (NEGATIVE); URINE LEUK ESTERASE NEGATIVE (NEGATIVE); URINE NITRITE NEGATIVE (NEGATIVE); URINE PROTEIN NEGATIVE (NEGATIVE); URINE UROBILINOGEN 0.2 mg/dL (0.2-1.0)
[2022-06-22 00:04] LABS: SGOT/AST 11 U/L (15-37); SGPT/ALT 14 U/L (13-61)
[2022-06-22 00:05] LABS: BILIRUBIN,TOTAL 0.2 mg/dL (0.2-1); TOT PROT 7.4 g/dl (6.4-8.2)
[2022-06-22 00:07] LABS: ALK PHOS 131 U/L (45-117)
[2022-06-22] MEDS ORDERED: INSULIN REGULAR HUMAN 100 UNITS/ML *VIAL IVPUSH ONE (01:17)
[2022-06-22 01:52] LABS: GLUCOSE,RANDOM 574 mg/dL (74-106); LACTIC ACID 5.3 mmol/L (0.4-2.0)
[2022-06-22] MEDS ORDERED: diazePAM CARPU-JECT 10 MG/2 ML DISP.SYRIN IVPUSH ONE (03:25)
[2022-06-22] MEDS ORDERED: diazePAM CARPU-JECT 10 MG/2 ML DISP.SYRIN ONE (03:49)
[2022-06-22 07:34] LABS: HEMOGLOBIN 11.2 GM/dL (10.7-15.3); MCHC 33.9 g/dl (32.0-36.0); MEAN CELL VOLUME 79.5 fl (80-96); MEAN PLT VOLUME 8.2 fl (7.5-11.1); PLATELET COUNT 331 10^3/uL (134-434); RBC 4.15 M/mm3 (3.60-5.2); RDW 13.9 % (11.6-15.6)
[2022-06-22 07:51] LABS: CALCIUM 9.5 mg/dL (8.5-10.1)
[2022-06-22 07:52] LABS: ALBUMIN 3.5 g/dl (3.4-5.0); BLOOD UREA NITROGEN 10.9 mg/dL (7-18); MAGNESIUM 1.6 mg/dL (1.8-2.4)
[2022-06-22 07:54] LABS: CREATININE 0.6 mg/dL (0.55-1.3)
[2022-06-22 07:55] LABS: PHOSPHOROUS 3.7 mg/dL (2.5-4.9)
[2022-06-22 07:56] LABS: BILIRUBIN,TOTAL 0.3 mg/dL (0.2-1); TOT PROT 7.3 g/dl (6.4-8.2)
[2022-06-22] MEDS ORDERED: ACETAMINOPHEN 325 MG TABLET (FP) PO PRN (08:07)
[2022-06-22 08:09] VITALS: RESP 18
[2022-06-22] MEDS ORDERED: ACETAMINOPHEN 1000 MG/100 ML BAG IVPB PRN (08:12)
[2022-06-22] MEDS ORDERED: MAGNESIUM OXIDE 400 MG TABLET (FP) ONE (08:23)
[2022-06-22] MEDS ORDERED: ACETAMINOPHEN INJECTION 100 ML IVPB ONE (08:23)
[2022-06-22] MEDS ORDERED: ENOXAPARIN NA (PORCINE) 40 MG/0.4 ML DISP.SYRIN SQ ONE (08:24)
[2022-06-22] MEDS: INSULIN SLIDING SCALE (NOVOLOG) 1 VIAL SQ SCH ×2 (08:34→12:41)
[2022-06-22] MEDS ORDERED: MAGNESIUM OXIDE 400 MG TABLET (FP) PO ONE (08:45)
[2022-06-22] MEDS ORDERED: ENOXAPARIN NA (PORCINE) 40 MG/0.4 ML DISP.SYRIN SQ SCH (10:00)
[2022-06-22] MEDS ORDERED: REMDESIVIR 200 MG in SODIUM CHLORIDE 250 ML IVPB ONE (10:00)
[2022-06-22] MEDS ORDERED: ALBUTEROL SO4 HFA INHALER IH SCH (11:30)
[2022-06-22 14:37] VITALS: BP 130/71; PULSE 94; TEMP 98
[2022-06-23] MEDS ORDERED: MONTELUKAST NA 10 MG TABLET PO SCH (10:00)
[2022-06-23] MEDS ORDERED: LORATADINE 10 MG TABLET PO SCH (10:00)
[2022-06-23] MEDS ORDERED: DULoxetine HCL 60 MG CAPSULE.DR PO SCH (10:00)
== END 2022-06-22 14:30 | disposition home or self-care (01) | DRG 137 ==
LOC: JER 22:44 → JERBED 06-22 02:02
PROVIDERS: ADMIT Internal Medicine; ATTEND Nurse Practitioner Acute Care
DX: U07.1 COVID-19 (principal); E11.65 Type 2 diabetes mellitus with hyperglycemia; J45.909 Unspecified asthma, uncomplicated; R06.02 Shortness of breath; R63.0 Anorexia; K21.9 Gastro-esophageal reflux disease without esophagitis; F41.8 Other specified anxiety disorders; E78.5 Hyperlipidemia, unspecified
CPT/HCPCS: 0241U-QW; 36415; 71045-TC-FY; 80053; 81003; 82010; 82550; 82803; 82962; 83605; 83690; 83735; 84100; 84484; 85025; 85027; 85610; 85730; 93005; 93010; 99285-25; C9399

== ENCOUNTER 2022-07-08 17:44 | Emergency (ER) | payer OTHER ==
[2022-07-08 17:54] VITALS: BP 122/75; PULSE 109; RESP 20; TEMP 98.1; BMI 25.3
[2022-07-08] MEDS ORDERED: ONDANSETRON 4 MG/2 ML VIAL IVPB ONE (19:58)
[2022-07-08] MEDS ORDERED: SODIUM CHLORIDE 1,000 ML IV STA (20:04)
[2022-07-08] MEDS ORDERED: ONDANSETRON 4 MG/2 ML VIAL ONE (20:14)
[2022-07-08 20:30] LABS: EOS % 2.5 % (0-4.5); HEMATOCRIT 36.6 % (32.4-45.2); LYMPH % 34.5 % (8-40); MCH 26.2 pg (25.7-33.7); MCHC 32.7 g/dl (32.0-36.0); MEAN PLT VOLUME 8.2 fl (7.5-11.1); MONO % 7.7 % (3.8-10.2); NEUT % 54.3 % (42.8-82.8); PLATELET COUNT 326 10^3/uL (134-434); RBC 4.58 M/mm3 (3.60-5.2); RDW 14.5 % (11.6-15.6)
[2022-07-08 20:52] LABS: CALCIUM 9.7 mg/dL (8.5-10.1)
[2022-07-08 20:53] LABS: ALBUMIN 3.7 g/dl (3.4-5.0); BLOOD UREA NITROGEN 15.4 mg/dL (7-18)
[2022-07-08 20:56] LABS: CREATININE 0.9 mg/dL (0.55-1.3)
[2022-07-08 20:58] LABS: BILIRUBIN,TOTAL 0.4 mg/dL (0.2-1); TOT PROT 7.9 g/dl (6.4-8.2)
[2022-07-08 22:09] LABS: EPI CELLS 9 /uL (0-25.1); HYALINE CASTS 3 /uL (0-3.1); PH,URINE 5.5 (5.0-8.0); URINE APPEARANCE CLEAR; URINE BACTERIA 259 /uL (0-1359); URINE BILIRUBIN NEGATIVE (NEGATIVE); URINE COLOR YELLOW; URINE GLUCOSE (UA) 3+ (NEGATIVE); URINE KETONE TRACE (NEGATIVE); URINE LEUK ESTERASE 1+ (NEGATIVE); URINE NITRITE NEGATIVE (NEGATIVE); URINE PROTEIN 1+ (NEGATIVE); URINE RBC 14 /uL (0-23.9); URINE WBC 121 /uL (0-25.8)
[2022-07-08] MEDS ORDERED: CEPHALEXIN MONOHYDRATE 500 MG CAPSULE (UD) PO ONE (22:25)
[2022-07-08] MEDS ORDERED: CEPHALEXIN MONOHYDRATE 500 MG CAPSULE (UD) ONE (22:26)
== END 2022-07-08 23:16 | disposition home or self-care (01) ==
LOC: JER 17:44
PROC: 3E033GC Introduction of Other Therapeutic Substance into Peripheral Vein, Percutaneous Approach (ICD-10-PCS; principal; 2022-07-08)
PROC: 3E0337Z Introduction of Electrolytic and Water Balance Substance into Peripheral Vein, Percutaneous Approach (ICD-10-PCS; 2022-07-08)
DX: R11.14 Bilious vomiting (principal); N39.0 Urinary tract infection, site not specified; R10.9 Unspecified abdominal pain
CPT/HCPCS: 36415; 80053; 81003; 82010; 82550; 84484; 85025; 87086; 93005; 93010; 99284-25

== ENCOUNTER 2022-09-07 10:21 | Emergency (ER) | payer OTHER ==
[2022-09-07 10:27] VITALS: BMI 25.7
[2022-09-07] MEDS ORDERED: SODIUM CHLORIDE 1,000 ML IV STA ×2 (11:58→13:49)
[2022-09-07] MEDS ORDERED: ONDANSETRON 4 MG/2 ML VIAL IVPUSH PRN (12:04)
[2022-09-07] MEDS ORDERED: ACETAMINOPHEN 1000 MG/100 ML BAG IVPB ONE (12:04)
[2022-09-07] MEDS ORDERED: ONDANSETRON 4 MG/2 ML VIAL ONE (12:13)
[2022-09-07] MEDS ORDERED: ACETAMINOPHEN INJECTION 100 ML IVPB ONE (12:13)
[2022-09-07 12:28] LABS: EOS % 2.9 % (0-4.5); HEMATOCRIT 34.5 % (32.4-45.2); HEMOGLOBIN 11.3 GM/dL (10.7-15.3); LYMPH % 28.3 % (8-40); MCH 26.6 pg (25.7-33.7); MCHC 32.9 g/dl (32.0-36.0); MEAN CELL VOLUME 80.9 fl (80-96); MEAN PLT VOLUME 8.7 fl (7.5-11.1); MONO % 8.6 % (3.8-10.2); NEUT % 59.2 % (42.8-82.8); PLATELET COUNT 344 10^3/uL (134-434); RBC 4.27 M/mm3 (3.60-5.2); RDW 14.5 % (11.6-15.6); WHITE BLOOD COUNT 6.1 K/mm3 (4.0-10.0)
[2022-09-07 12:28] LABS: PH,URINE 5.5 (5.0-8.0); URINE APPEARANCE CLEAR; URINE BILIRUBIN NEGATIVE (NEGATIVE); URINE COLOR YELLOW; URINE GLUCOSE (UA) 3+ (NEGATIVE); URINE KETONE TRACE (NEGATIVE); URINE LEUK ESTERASE NEGATIVE (NEGATIVE); URINE NITRITE NEGATIVE (NEGATIVE); URINE PROTEIN NEGATIVE (NEGATIVE); URINE UROBILINOGEN 0.2 mg/dL (0.2-1.0)
[2022-09-07 13:12] LABS: BLOOD UREA NITROGEN 13.7 mg/dL (7-18); CO2 23 mmol/L (21-32); GLUCOSE,RANDOM 368 mg/dL (74-106); MAGNESIUM 1.8 mg/dL (1.8-2.4)
[2022-09-07 13:15] LABS: CREATININE 0.9 mg/dL (0.55-1.3); SGOT/AST 47 U/L (15-37); SGPT/ALT 14 U/L (13-61)
[2022-09-07 13:17] LABS: BILIRUBIN,TOTAL 0.5 mg/dL (0.2-1); TOT PROT 8.4 g/dl (6.4-8.2)
[2022-09-07 13:18] LABS: ALK PHOS 144 U/L (45-117)
[2022-09-07 13:25] LABS: ALBUMIN 3.7 g/dl (3.4-5.0); ANION GAP 12 MMOL/L (8-16); CHLORIDE 96 mmol/L (98-107); SODIUM 131 mmol/L (136-145)
[2022-09-07] MEDS ORDERED: INSULIN REGULAR HUMAN 100 UNITS/ML *VIAL SQ ONE (14:23)
[2022-09-07 15:26] LABS: ALBUMIN 3.2 g/dl (3.4-5.0); CALCIUM 9.3 mg/dL (8.5-10.1)
[2022-09-07 15:27] LABS: BLOOD UREA NITROGEN 12.4 mg/dL (7-18)
[2022-09-07 15:29] LABS: CREATININE 0.8 mg/dL (0.55-1.3)
[2022-09-07 15:31] LABS: BILIRUBIN,TOTAL 0.4 mg/dL (0.2-1); TOT PROT 7.1 g/dl (6.4-8.2)
[2022-09-07 17:28] VITALS: BP 122/78; PULSE 78; RESP 19; TEMP 97.9
== END 2022-09-07 17:00 | disposition home or self-care (01) ==
LOC: JER 10:21
PROC: 3E0333Z Introduction of Anti-inflammatory into Peripheral Vein, Percutaneous Approach (ICD-10-PCS; principal; 2022-09-07)
PROC: 3E033GC Introduction of Other Therapeutic Substance into Peripheral Vein, Percutaneous Approach (ICD-10-PCS; 2022-09-07)
PROC: 3E0337Z Introduction of Electrolytic and Water Balance Substance into Peripheral Vein, Percutaneous Approach (ICD-10-PCS; 2022-09-07)
PROC: 3E0337Z Introduction of Electrolytic and Water Balance Substance into Peripheral Vein, Percutaneous Approach (ICD-10-PCS; 2022-09-07)
DX: R10.30 Lower abdominal pain, unspecified (principal); R11.0 Nausea
CPT/HCPCS: 36415; 71046-TC-FY; 74177-TC; 80053; 81003; 82962; 83735; 84484; 85025; 87086; 87186; 93005; 93010; 99285-25

== ENCOUNTER 2022-10-22 08:09 | Emergency (ER) | payer OTHER ==
[2022-10-22 08:54] VITALS: TEMP 97.8; BMI 22.4
[2022-10-22] MEDS ORDERED: SODIUM CHLORIDE 0.9% 500 ML INFUS.BAG IV ONE (09:19)
[2022-10-22] MEDS ORDERED: KETOROLAC TROMETHAMINE 15 MG/ML VIAL IVPUSH ONE (09:21)
[2022-10-22] MEDS ORDERED: KETOROLAC TROMETHAMINE 15 MG/ML VIAL ONE (09:57)
[2022-10-22] MEDS ORDERED: ONDANSETRON 4 MG/2 ML VIAL IVPB ONE (10:04)
[2022-10-22 10:25] LABS: BASO % 0.5 % (0-2.0); EOS % 1.9 % (0-4.5); HEMATOCRIT 31.8 % (32.4-45.2); HEMOGLOBIN 10.6 GM/dL (10.7-15.3); LYMPH % 14.1 % (8-40); MCH 26.3 pg (25.7-33.7); MCHC 33.4 g/dl (32.0-36.0); MEAN CELL VOLUME 78.8 fl (80-96); MEAN PLT VOLUME 8.7 fl (7.5-11.1); MONO % 6.5 % (3.8-10.2); PLATELET COUNT 264 10^3/uL (134-434); RBC 4.03 M/mm3 (3.60-5.2); RDW 14.2 % (11.6-15.6); WHITE BLOOD COUNT 9.8 K/mm3 (4.0-10.0)
[2022-10-22 10:45] LABS: CALCIUM 9.5 mg/dL (8.5-10.1)
[2022-10-22 10:46] LABS: ALBUMIN 3.3 g/dl (3.4-5.0); BLOOD UREA NITROGEN 12.2 mg/dL (7-18)
[2022-10-22] MEDS ORDERED: ONDANSETRON 4 MG/2 ML VIAL ONE (10:46)
[2022-10-22 10:49] LABS: EPI CELLS 5 /uL (0-25.1); HYALINE CASTS 15 /uL (0-3.1); URINE APPEARANCE TURBID; URINE BACTERIA 207 /uL (0-1359); URINE BILIRUBIN NEGATIVE (NEGATIVE); URINE COLOR YELLOW; URINE GLUCOSE (UA) 2+ (NEGATIVE); URINE KETONE NEGATIVE (NEGATIVE); URINE LEUK ESTERASE 3+ (NEGATIVE); URINE NITRITE NEGATIVE (NEGATIVE); URINE PROTEIN 3+ (NEGATIVE); URINE UROBILINOGEN 0.2 mg/dL (0.2-1.0); URINE WBC 17119 /uL (0-25.8)
[2022-10-22 10:49] LABS: CREATININE 0.8 mg/dL (0.55-1.3)
[2022-10-22 10:50] LABS: BILIRUBIN,TOTAL 0.3 mg/dL (0.2-1)
[2022-10-22 10:51] LABS: TOT PROT 7.5 g/dl (6.4-8.2)
[2022-10-22 11:09] LABS: URINE RBC 661 /uL (0-23.9)
[2022-10-22] MEDS ORDERED: CEFTRIAXONE 1 GM in DEXTROSE 5%-WATER - 50 ML IVPB ONE (11:39)
[2022-10-22] MEDS ORDERED: CEFTRIAXONE 1 GM/50 ML BAG ONE (11:46)
[2022-10-22 12:40] VITALS: BP 109/70; PULSE 90; RESP 16
== END 2022-10-22 12:40 | disposition home or self-care (01) ==
LOC: JER 08:09
PROC: 3E03329 Introduction of Other Anti-infective into Peripheral Vein, Percutaneous Approach (ICD-10-PCS; principal; 2022-10-22)
PROC: 3E033GC Introduction of Other Therapeutic Substance into Peripheral Vein, Percutaneous Approach (ICD-10-PCS; 2022-10-22)
PROC: 3E033NZ Introduction of Analgesics, Hypnotics, Sedatives into Peripheral Vein, Percutaneous Approach (ICD-10-PCS; 2022-10-22)
DX: N12 Tubulo-interstitial nephritis, not specified as acute or chronic (principal)
CPT/HCPCS: 36415; 74176-TC; 80053; 81003; 83605; 83690; 85025; 87086; 87186; 93005; 93010; 99285-25

== ENCOUNTER 2023-08-06 13:47 | Emergency (ER) | payer OTHER ==
[2023-08-06 14:07] VITALS: BMI 25.7
[2023-08-06] MEDS ORDERED: ACETAMINOPHEN 1000 MG/100 ML BAG IVPB ONE (15:06)
[2023-08-06] MEDS ORDERED: SODIUM CHLORIDE 0.9% 1000 ML INFUS.BAG IV ONE (15:07)
[2023-08-06] MEDS ORDERED: ACETAMINOPHEN INJECTION 100 ML IVPB ONE (15:45)
[2023-08-06 15:47] LABS: BASO % 1.2 % (0-2.0); EOS % 2.7 % (0-4.5); HEMATOCRIT 33.4 % (32.4-45.2); HEMOGLOBIN 11.2 GM/dL (10.7-15.3); LYMPH % 26.4 % (8-40); MCH 26.5 pg (25.7-33.7); MCHC 33.5 g/dl (32.0-36.0); MEAN PLT VOLUME 8.1 fl (7.5-11.1); MONO % 7.3 % (3.8-10.2); NEUT % 62.4 % (42.8-82.8); PLATELET COUNT 286 10^3/uL (134-434); RBC 4.23 M/mm3 (3.60-5.2); RDW 13.7 % (11.6-15.6); WHITE BLOOD COUNT 6.3 K/mm3 (4.0-10.0)
[2023-08-06 15:54] LABS: INR 1.19 (0.83-1.09); PROTHROMBIN TIME (PATIENT) 13.8 SEC (9.7-13.0)
[2023-08-06 15:56] LABS: ACTIVATED PTT 33.2 SECONDS (25.2-36.5)
[2023-08-06 16:04] LABS: POTASSIUM 3.6 mmol/L (3.5-5.1)
[2023-08-06 16:06] LABS: CALCIUM 9.3 mg/dL (8.5-10.1)
[2023-08-06 16:07] LABS: ALBUMIN 3.4 g/dl (3.4-5.0); BLOOD UREA NITROGEN 10.2 mg/dL (7-18); MAGNESIUM 1.3 mg/dL (1.8-2.4)
[2023-08-06 16:11] LABS: BILIRUBIN,TOTAL 0.3 mg/dL (0.2-1); TOT PROT 7.6 g/dl (6.4-8.2)
[2023-08-06 16:13] LABS: EPI CELLS 2 /uL (0-25.1); HYALINE CASTS 0 /uL (0-3.1); PH,URINE 5.5 (5.0-8.0); URINE APPEARANCE CLOUDY; URINE BACTERIA >9,000 /uL (0-1359); URINE BILIRUBIN NEGATIVE (NEGATIVE); URINE COLOR YELLOW; URINE GLUCOSE (UA) NEGATIVE (NEGATIVE); URINE KETONE NEGATIVE (NEGATIVE); URINE LEUK ESTERASE 3+ (NEGATIVE); URINE NITRITE NEGATIVE (NEGATIVE); URINE PROTEIN TRACE (NEGATIVE); URINE RBC 20 /uL (0-23.9); URINE UROBILINOGEN 0.2 mg/dL (0.2-1.0); URINE WBC 1803 /uL (0-25.8)
[2023-08-06] MEDS ORDERED: CEFTRIAXONE 1 GM/50 ML BAG ONE (16:50)
[2023-08-06 18:39] VITALS: BP 117/74; PULSE 79; RESP 16; TEMP 98.5
== END 2023-08-06 18:48 | disposition home or self-care (01) ==
LOC: JER 13:47
PROC: 3E033NZ Introduction of Analgesics, Hypnotics, Sedatives into Peripheral Vein, Percutaneous Approach (ICD-10-PCS; principal; 2023-08-06)
PROC: 3E033GC Introduction of Other Therapeutic Substance into Peripheral Vein, Percutaneous Approach (ICD-10-PCS; 2023-08-06)
DX: N39.0 Urinary tract infection, site not specified (principal); Z20.822 Contact with and (suspected) exposure to COVID-19
CPT/HCPCS: 0241U-QW; 36415; 74176-TC; 80053; 81003; 83735; 85025; 85610; 85730; 87086; 87186; 99284-25

== ENCOUNTER 2023-12-16 04:21 | Day surgery (SDC) | payer OTHER ==
[2023-12-14 12:14] VITALS: BMI 27.4
[~2023-12-16 04:21] MED LIST: ACETAMINOPHEN 325 MG TABLET (FP) PO PRN; CYCLOPENTOLATE HCL 1% OPHTH SOLN 2 ML BOTTLE OP SCH; KETOROLAC TROMETHAMINE 0.5% EYE DROP 1 DROP DROPS OP SCH; OFLOXACIN 0.3% OPHTHALMIC SOLUTION 5 ML BOTTLE OP SCH; PHENYLEPHRINE 2.5% OPHTH SOLN 15 ML BOTTLE OP SCH; TROPICAMIDE 1% OPHTH SOLN 15 ML BOTTLE OP SCH
[2023-12-16] MEDS ORDERED: OFLOXACIN 0.3% OPHTHALMIC SOLUTION 5 ML BOTTLE ONE (06:16)
[2023-12-16] MEDS ORDERED: KETOROLAC TROMETHAMINE 0.5% EYE DROP 1 DROP DROPS ONE (06:16)
[2023-12-16] MEDS ORDERED: TROPICAMIDE 1% OPHTH SOLN 15 ML BOTTLE ONE (06:16)
[2023-12-16] MEDS ORDERED: PHENYLEPHRINE 2.5% OPTHALMIC DROP 2ML BOTTLE ONE (06:16)
[2023-12-16] MEDS ORDERED: CYCLOPENTOLATE HCL 1% OPHTH SOLN 2 ML BOTTLE ONE (06:16)
[2023-12-16] MEDS: OFLOXACIN 0.3% OPHTHALMIC SOLUTION 5 ML BOTTLE OS ONE ×3 (06:30→06:40)
[2023-12-16] MEDS: KETOROLAC TROMETHAMINE 0.5% EYE DROP 1 DROP DROPS OS ONE ×3 (06:30→06:40)
[2023-12-16] MEDS: CYCLOPENTOLATE HCL 1% OPHTH SOLN 2 ML BOTTLE OS ONE ×3 (06:30→06:40)
[2023-12-16] MEDS: TROPICAMIDE 1% OPHTH SOLN 15 ML BOTTLE OS ONE ×2 (06:30→06:35)
[2023-12-16] MEDS: PHENYLEPHRINE 2.5% OPHTH SOLN 15 ML BOTTLE OS ONE ×3 (06:30→06:40)
[2023-12-16 06:39] VITALS: RESP 18
[2023-12-16] MEDS: TROPICAMIDE 0.5% OPHTHALMIC SOLN 15 ML BOTTLE OS ONE (06:40)
[2023-12-16] MEDS ORDERED: LIDOCAINE HCL/PF 1% SDV 5ML VIAL ONE (07:17)
[2023-12-16] MEDS ORDERED: VANCOMYCIN 500 MG VIAL (RESTRICTED TO ID ONLY) ONE (07:17)
[2023-12-16] MEDS ORDERED: EPINEPHrine/PF 1 MG/1 ML (1:1,000) AMPULE ONE (07:17)
[2023-12-16] MEDS ORDERED: TETRACAINE 0.5% OPHTH SOLN 2 ML BOTTLE ONE (07:18)
[2023-12-16] MEDS ORDERED: POVIDONE-IODINE 5% OPHTHALMIC PREP 30 ML SOLUTION ONE (07:18)
[2023-12-16] MEDS ORDERED: MIDAZOLAM HCL 2 MG/2 ML SINGLE DOSE VIAL ONE (07:57)
[2023-12-16] MEDS: TETRACAINE 0.5% OPHTH SOLN 2 ML BOTTLE TP ONE ×2 (08:05)
[2023-12-16] MEDS: POVIDONE-IODINE 5% OPHTHALMIC PREP 30 ML SOLUTION OS ONE ×2 (08:06)
[2023-12-16] MEDS: BSS (NA/CA/MG/K) BALANCED SALT SOLUTION OPHTH SOLN 15 ML BOTTLE OS ONE ×2 (08:12)
[2023-12-16] MEDS: CHONDROITIN SU A/HYALUR SOD 1 KIT IO ONE ×2 (08:13)
[2023-12-16] MEDS: LIDOCAINE HCL 1% PRESERVATIVE FREE - 30ML VIAL IO ONE ×2 (08:13)
[2023-12-16] MEDS: EPINEPHrine/PF 1 MG/1 ML (1:1,000) AMPULE SQ ONE ×2 (08:19)
[2023-12-16] MEDS: VANCOMYCIN 500 MG VIAL (RESTRICTED TO ID ONLY) IVPB ONE ×2 (08:36)
[2023-12-16 11:40] VITALS: PULSE 86; TEMP 98.5
[2023-12-16 11:57] VITALS: BP 119/72
== END 2023-12-16 10:24 | disposition home or self-care (01) ==
LOC: JASU-SURG 04:21
PROVIDERS: ATTEND Ophthalmology
PROC: 08RK3JZ Replacement of Left Lens with Synthetic Substitute, Percutaneous Approach (ICD-10-PCS; principal; 2023-12-16 08:00)
DX: H26.9 Unspecified cataract (principal)
CPT/HCPCS: 82962; V2632

== ENCOUNTER 2023-12-30 04:06 | Day surgery (SDC) | payer OTHER ==
[2023-12-29 08:55] VITALS: BMI 27.4
[2023-12-30] MEDS: TETRACAINE 0.5% OPHTH SOLN 2 ML BOTTLE OD ONE
[~2023-12-30 04:06] MED LIST changes: -CYCLOPENTOLATE HCL 1% OPHTH SOLN 2 ML BOTTLE OP SCH; -KETOROLAC TROMETHAMINE 0.5% EYE DROP 1 DROP DROPS OP SCH; -OFLOXACIN 0.3% OPHTHALMIC SOLUTION 5 ML BOTTLE OP SCH; -PHENYLEPHRINE 2.5% OPHTH SOLN 15 ML BOTTLE OP SCH; -TROPICAMIDE 1% OPHTH SOLN 15 ML BOTTLE OP SCH
[2023-12-30 07:04] VITALS: RESP 16
[2023-12-30] MEDS ORDERED: TROPICAMIDE 1% OPHTH SOLN 15 ML BOTTLE ONE (07:06)
[2023-12-30] MEDS ORDERED: CYCLOPENTOLATE HCL 1% OPHTH SOLN 2 ML BOTTLE ONE (07:06)
[2023-12-30] MEDS ORDERED: KETOROLAC TROMETHAMINE 0.5% EYE DROP 1 DROP DROPS ONE (07:06)
[2023-12-30] MEDS ORDERED: OFLOXACIN 0.3% OPHTHALMIC SOLUTION 5 ML BOTTLE ONE (07:06)
[2023-12-30] MEDS ORDERED: PHENYLEPHRINE 2.5% OPTHALMIC DROP 2ML BOTTLE ONE (07:06)
[2023-12-30] MEDS: PHENYLEPHRINE 2.5% OPHTH SOLN 15 ML BOTTLE OD ONE (07:15)
[2023-12-30] MEDS: CYCLOPENTOLATE HCL 1% OPHTH SOLN 2 ML BOTTLE OD ONE (07:15)
[2023-12-30] MEDS: OFLOXACIN 0.3% OPHTHALMIC SOLUTION 5 ML BOTTLE OD ONE (07:15)
[2023-12-30] MEDS: KETOROLAC TROMETHAMINE 0.5% EYE DROP 1 DROP DROPS OD ONE (07:15)
[2023-12-30] MEDS: TROPICAMIDE 1% OPHTH SOLN 15 ML BOTTLE OD ONE (07:15)
[2023-12-30] MEDS: KETOROLAC TROMETHAMINE 0.5% EYE DROP 1 DROP DROPS OP SCH (07:17)
[2023-12-30] MEDS: CYCLOPENTOLATE HCL 1% OPHTH SOLN 2 ML BOTTLE OP SCH (07:17)
[2023-12-30] MEDS: TROPICAMIDE 1% OPHTH SOLN 15 ML BOTTLE OP SCH (07:17)
[2023-12-30] MEDS: OFLOXACIN 0.3% OPHTHALMIC SOLUTION 5 ML BOTTLE OP SCH (07:18)
[2023-12-30] MEDS: PHENYLEPHRINE 2.5% OPHTH SOLN 15 ML BOTTLE OP SCH (07:18)
[2023-12-30] MEDS ORDERED: LIDOCAINE HCL/PF 1% SDV 5ML VIAL ONE (07:26)
[2023-12-30] MEDS ORDERED: BSS (NA/CA/MG/K) BALANCED SALT SOLUTION OPHTH SOLN 15 ML BOTTLE ONE (07:27)
[2023-12-30] MEDS ORDERED: TETRACAINE 0.5% OPHTH SOLN 2 ML BOTTLE ONE (07:27)
[2023-12-30] MEDS ORDERED: PHENYLEPHRINE/KETOROLAC 4 ML VIAL IO ONE (07:27)
[2023-12-30] MEDS ORDERED: POVIDONE-IODINE 5% OPHTHALMIC PREP 30 ML SOLUTION ONE (07:27)
[2023-12-30] MEDS ORDERED: MIDAZOLAM HCL 2 MG/2 ML SINGLE DOSE VIAL ONE (08:04)
[2023-12-30] MEDS: TETRACAINE 0.5% OPHTH SOLN 2 ML BOTTLE TP ONE (08:11)
[2023-12-30] MEDS: POVIDONE-IODINE 5% OPHTHALMIC PREP 30 ML SOLUTION OD ONE ×2 (08:12)
[2023-12-30] MEDS: BSS (NA/CA/MG/K) BALANCED SALT SOLUTION OPHTH SOLN 15 ML BOTTLE IO ONE ×2 (08:20)
[2023-12-30] MEDS: LIDOCAINE HCL 1% PRESERVATIVE FREE - 30ML VIAL IO ONE ×2 (08:21)
[2023-12-30] MEDS: CHONDROITIN SU A/HYALUR SOD 1 KIT IO ONE ×2 (08:21)
[2023-12-30] MEDS: PHENYLEPHRINE/KETOROLAC 4 ML VIAL IO ONE (08:29)
[2023-12-30] MEDS: VANCOMYCIN 500 MG VIAL (RESTRICTED TO ID ONLY) IVPB ONE ×2 (08:41)
[2023-12-30 09:11] VITALS: TEMP 97.9
[2023-12-30 09:32] VITALS: BP 118/60; PULSE 70
== END 2023-12-30 10:27 | disposition home or self-care (01) ==
LOC: JASU-SURG 04:06
PROVIDERS: ATTEND Ophthalmology
PROC: 08RJ3JZ Replacement of Right Lens with Synthetic Substitute, Percutaneous Approach (ICD-10-PCS; principal; 2023-12-30 08:00)
DX: H26.9 Unspecified cataract (principal)
CPT/HCPCS: 82962; J1097; V2632

== ENCOUNTER 2024-03-29 12:34 | Emergency (ER) | payer OTHER ==
[2024-03-29 13:17] VITALS: BP 111/71; PULSE 97; RESP 18; TEMP 98.8; BMI 26.2
[2024-03-29] MEDS ORDERED: KETOROLAC TROMETHAMINE 15 MG/ML VIAL ONE ×2 (14:18→16:10)
[2024-03-29] MEDS ORDERED: ONDANSETRON 4 MG/2 ML VIAL ONE (14:18)
[2024-03-29] MEDS ORDERED: ACETAMINOPHEN INJECTION 100 ML IVPB ONE (14:18)
[2024-03-29] MEDS: LACTATED RINGERS SOLUTION 1000 ML INFUS.BAG IV ONE (14:26)
[2024-03-29] MEDS: ONDANSETRON 4 MG/2 ML VIAL IVPUSH ONE (14:26)
[2024-03-29] MEDS: KETOROLAC TROMETHAMINE 15 MG/ML VIAL IVPUSH ONE ×2 (14:26→16:11)
[2024-03-29] MEDS: ACETAMINOPHEN 1000 MG/100 ML BAG IVPB ONE (14:26)
[2024-03-29 14:31] LABS: BASO % 0.8 % (0-2.0); EOS % 2.5 % (0-4.5); HEMATOCRIT 30.4 % (32.4-45.2); HEMOGLOBIN 10.2 GM/dL (10.7-15.3); MCH 26.2 pg (25.7-33.7); MCHC 33.6 g/dl (32.0-36.0); MEAN PLT VOLUME 8.1 fl (7.5-11.1); MONO % 7.2 % (3.8-10.2); NEUT % 65.5 % (42.8-82.8); PLATELET COUNT 266 10^3/uL (134-434); RDW 15.3 % (11.6-15.6); WHITE BLOOD COUNT 6.3 K/mm3 (4.0-10.0)
[2024-03-29 14:41] LABS: EPI CELLS 12 /uL (0-25.1); HYALINE CASTS 0 /uL (0-3.1); PH,URINE 5.5 (5.0-8.0); URINE APPEARANCE CLOUDY; URINE BACTERIA >9,000 /uL (0-1359); URINE BILIRUBIN NEGATIVE (NEGATIVE); URINE COLOR YELLOW; URINE GLUCOSE (UA) TRACE (NEGATIVE); URINE KETONE NEGATIVE (NEGATIVE); URINE LEUK ESTERASE 2+ (NEGATIVE); URINE NITRITE NEGATIVE (NEGATIVE); URINE PROTEIN NEGATIVE (NEGATIVE); URINE RBC 23 /uL (0-23.9); URINE UROBILINOGEN 0.2 mg/dL (0.2-1.0); URINE WBC 2545 /uL (0-25.8)
[2024-03-29 14:52] LABS: ALBUMIN 3.4 g/dl (3.4-5.0); BLOOD UREA NITROGEN 13.8 mg/dL (7-18); MAGNESIUM 1.7 mg/dL (1.8-2.4)
[2024-03-29 14:55] LABS: CREATININE 1.1 mg/dL (0.55-1.3)
[2024-03-29 14:57] LABS: BILIRUBIN,TOTAL 0.3 mg/dL (0.2-1); TOT PROT 7.5 g/dl (6.4-8.2)
[2024-03-29 15:41] LABS: HIV INTERPRETATION NEGATIVE (NEGATIVE)
[2024-03-29] MEDS ORDERED: CEFTRIAXONE 1 GM/50 ML BAG ONE (16:09)
[2024-03-29] MEDS ORDERED: MAGNESIUM SULFATE IN WATER 2 GM/50 ML IVPB IVPB ONE (16:10)
[2024-03-29] MEDS: MAGNESIUM SULFATE IN WATER 2 GM/50 ML IVPB IVPB ONE (16:11)
== END 2024-03-29 17:14 | disposition home or self-care (01) ==
LOC: JER 12:34
PROC: 3E033GC Introduction of Other Therapeutic Substance into Peripheral Vein, Percutaneous Approach (ICD-10-PCS; principal; 2024-03-29)
PROC: 3E033NZ Introduction of Analgesics, Hypnotics, Sedatives into Peripheral Vein, Percutaneous Approach (ICD-10-PCS; 2024-03-29)
PROC: 3E03329 Introduction of Other Anti-infective into Peripheral Vein, Percutaneous Approach (ICD-10-PCS; 2024-03-29)
PROC: 3E0333Z Introduction of Anti-inflammatory into Peripheral Vein, Percutaneous Approach (ICD-10-PCS; 2024-03-29)
PROC: 3E0333Z Introduction of Anti-inflammatory into Peripheral Vein, Percutaneous Approach (ICD-10-PCS; 2024-03-29)
PROC: 3E033GC Introduction of Other Therapeutic Substance into Peripheral Vein, Percutaneous Approach (ICD-10-PCS; 2024-03-29)
DX: N12 Tubulo-interstitial nephritis, not specified as acute or chronic (principal); N39.0 Urinary tract infection, site not specified; R11.2 Nausea with vomiting, unspecified; R10.30 Lower abdominal pain, unspecified
CPT/HCPCS: 36415; 74176-TC; 80053; 81003; 83735; 85025; 86803; 87086; 87186; 87389; 99284-25; J0131

== ENCOUNTER 2024-05-07 07:21 | Observation (INO) | payer OTHER ==
[2024-05-07] MEDS ORDERED: PROCHLORPERAZINE INJECTION 10 MG/2 ML VIAL ONE (08:26)
[2024-05-07 08:36] LABS: BASO % 0.8 % (0-2.0); EOS % 2.3 % (0-4.5); HEMATOCRIT 31.5 % (32.4-45.2); HEMOGLOBIN 10.5 GM/dL (10.7-15.3); LYMPH % 24.9 % (8-40); MCH 26.4 pg (25.7-33.7); MCHC 33.4 g/dl (32.0-36.0); MEAN CELL VOLUME 79.2 fl (80-96); PLATELET COUNT 260 10^3/uL (134-434); RBC 3.98 M/mm3 (3.60-5.2); WHITE BLOOD COUNT 6.5 K/mm3 (4.0-10.0)
[2024-05-07 08:38] LABS: INR 1.12 (0.83-1.09); PROTHROMBIN TIME (PATIENT) 12.6 SEC (9.7-13.0)
[2024-05-07 08:41] LABS: ACTIVATED PTT 35.1 SECONDS (25.2-36.5)
[2024-05-07] MEDS: PROCHLORPERAZINE INJECTION 10 MG/2 ML VIAL IVPB ONE (08:52)
[2024-05-07] MEDS: SODIUM CHLORIDE 0.9% 500 ML INFUS.BAG IV ONE (08:52)
[2024-05-07 08:53] LABS: POTASSIUM 3.5 mmol/L (3.5-5.1)
[2024-05-07 08:55] LABS: ALBUMIN 3.4 g/dl (3.4-5.0); BLOOD UREA NITROGEN 12.4 mg/dL (7-18); CALCIUM 9.5 mg/dL (8.5-10.1)
[2024-05-07 08:59] LABS: CREATININE 0.9 mg/dL (0.55-1.3)
[2024-05-07 09:00] LABS: BILIRUBIN,TOTAL 0.4 mg/dL (0.2-1); TOT PROT 7.7 g/dl (6.4-8.2)
[2024-05-07 09:11] LABS: CHOLESTEROL 218 mg/dL (50-200)
[2024-05-07 09:12] LABS: LDL CHOLESTEROL (ONLY SJRH) 96 mg/dL (5-100)
[2024-05-07 09:14] LABS: HDL CHOLESTEROL 105 mg/dL (40-60)
[2024-05-07] MEDS: LORazepam 2 MG/ML SDV VIAL IVPUSH ONE (10:32)
[2024-05-07] MEDS ORDERED: ALBUTEROL SO4 HFA INHALER IH PRN (11:09)
[2024-05-07] MEDS ORDERED: ACETAMINOPHEN 325 MG TABLET (FP) PO PRN (11:12)
[2024-05-07 11:46] LABS: PH,URINE 5.5 (5.0-8.0); URINE APPEARANCE CLEAR; URINE BILIRUBIN NEGATIVE (NEGATIVE); URINE COLOR YELLOW; URINE GLUCOSE (UA) NEGATIVE (NEGATIVE); URINE KETONE NEGATIVE (NEGATIVE); URINE LEUK ESTERASE 2+ (NEGATIVE); URINE NITRITE NEGATIVE (NEGATIVE); URINE PROTEIN NEGATIVE (NEGATIVE); URINE UROBILINOGEN 0.2 mg/dL (0.2-1.0)
[2024-05-07 11:51] LABS: EPI CELLS 5 /uL (0-25.1); HYALINE CASTS 0.14 /uL (0-3.1); URINE BACTERIA 7863 /uL (0-1359); URINE RBC 7 /uL (0-23.9); URINE WBC 234 /uL (0-25.8)
[2024-05-07] MEDS ORDERED: CEFTRIAXONE 1 GM/50 ML BAG ONE (12:31)
[2024-05-07] MEDS: cefTRIAXone SODIUM 1 GM VIAL IVPB ONE (12:32)
[2024-05-07 13:22] LABS: HIV INTERPRETATION NEGATIVE (NEGATIVE)
[2024-05-07] MEDS: PRAMIPEXOLE DIHYDROCHLORIDE 0.25 MG TABLET PO ONE (16:00)
[2024-05-07] MEDS ORDERED: INSULIN ASPART SLIDING SCALE (NOVOLOG) 1 VIAL SQ ONE (17:30)
[2024-05-07] MEDS: INSULIN ASPART SLIDING SCALE (NOVOLOG) 1 VIAL SQ SCH (17:33)
[2024-05-07] MEDS ORDERED: PATIENT'S OWN MEDICATION (NON-FORMULARY) (Metoclopramide Hcl [Metoclopramide Hcl] 5 MG Tab PO SCH (22:00)
[2024-05-07] MEDS ORDERED: ROPINIROLE PO SCH (22:00)
[2024-05-07] MEDS ORDERED: ZOLPIDEM TARTRATE 5 MG TABLET ONE (22:25)
[2024-05-07] MEDS ORDERED: HEPARIN NA (PORCINE) 5,000 UNITS/ML 1ML VIAL ONE (22:26)
[2024-05-07] MEDS: ZOLPIDEM TARTRATE 5 MG TABLET PO SCH (22:34)
[2024-05-07] MEDS: HEPARIN NA (PORCINE) 5,000 UNITS/ML 1ML VIAL SQ SCH (22:34)
[2024-05-08 02:01] VITALS: RESP 18; BMI 25.1
[2024-05-08] MEDS: ACETAMINOPHEN 500 MG TABLET (FP) PO ONE (04:56)
[2024-05-08 08:22] LABS: CALCIUM 9.4 mg/dL (8.5-10.1); HEMOGLOBIN 10.3 GM/dL (10.7-15.3); RBC 3.89 M/mm3 (3.60-5.2); WHITE BLOOD COUNT 6.9 K/mm3 (4.0-10.0)
[2024-05-08 08:23] LABS: BASO % 0.7 % (0-2.0); EOS % 3.1 % (0-4.5); HEMATOCRIT 30.5 % (32.4-45.2); LYMPH % 29.3 % (8-40); MCH 26.5 pg (25.7-33.7); MCHC 33.9 g/dl (32.0-36.0); MEAN CELL VOLUME 78.3 fl (80-96); MEAN PLT VOLUME 8.5 fl (7.5-11.1); MONO % 7.7 % (3.8-10.2); NEUT % 59.2 % (42.8-82.8); PLATELET COUNT 278 10^3/uL (134-434); RDW 15.2 % (11.6-15.6)
[2024-05-08 08:24] LABS: ALBUMIN 3.5 g/dl (3.4-5.0); BLOOD UREA NITROGEN 11.1 mg/dL (7-18)
[2024-05-08 08:30] LABS: CREATININE 0.8 mg/dL (0.55-1.3)
[2024-05-08 08:32] LABS: BILIRUBIN,TOTAL 0.4 mg/dL (0.2-1); TOT PROT 7.5 g/dl (6.4-8.2)
[2024-05-08] MEDS: DULoxetine HCL 30 MG CAPSULE.DR PO SCH (09:25)
[2024-05-08] MEDS: INSULIN (LEVEMIR) 100 UNITS/ML UNITS SQ SCH (09:28)
[2024-05-08 11:28] VITALS: BP 124/67; PULSE 86; TEMP 98.6
[2024-05-08] MEDS: SULFAMETHOXAZOLE/TRIMETHOPRIM 800MG/160MG D.S. TABLET PO SCH (12:14)
[2024-05-08] MEDS: ASPIRIN 325 MG ENTERIC COATED TABLET (FP) PO ONE (12:14)
[2024-05-08] MEDS ORDERED: ATORVASTATIN CA 80 MG TABLET (FP) PO SCH (22:00)
[2024-05-09] MEDS ORDERED: ASPIRIN COATED 81 MG TABLET.EC PO SCH (10:00)
== END 2024-05-08 15:50 | disposition home or self-care (01) ==
LOC: JER 07:21 → JERBED 10:10 → J4S 05-08 00:56
PROVIDERS: ADMIT Internal Medicine; ATTEND Internal Medicine
PROC: 3E03329 Introduction of Other Anti-infective into Peripheral Vein, Percutaneous Approach (ICD-10-PCS; principal; 2024-05-07)
PROC: 3E033GC Introduction of Other Therapeutic Substance into Peripheral Vein, Percutaneous Approach (ICD-10-PCS; 2024-05-07)
PROC: 3E023GC Introduction of Other Therapeutic Substance into Muscle, Percutaneous Approach (ICD-10-PCS; 2024-05-07)
PROC: 3E013VG Introduction of Insulin into Subcutaneous Tissue, Percutaneous Approach (ICD-10-PCS; 2024-05-07)
PROC: 3E033NZ Introduction of Analgesics, Hypnotics, Sedatives into Peripheral Vein, Percutaneous Approach (ICD-10-PCS; 2024-05-07)
PROC: 3E0337Z Introduction of Electrolytic and Water Balance Substance into Peripheral Vein, Percutaneous Approach (ICD-10-PCS; 2024-05-07)
DX: G44.86 Cervicogenic headache (principal); E11.40 Type 2 diabetes mellitus with diabetic neuropathy, unspecified; J45.909 Unspecified asthma, uncomplicated; K44.9 Diaphragmatic hernia without obstruction or gangrene; K21.9 Gastro-esophageal reflux disease without esophagitis; K29.70 Gastritis, unspecified, without bleeding; K76.0 Fatty (change of) liver, not elsewhere classified; Z79.4 Long term (current) use of insulin; Z88.5 Allergy status to narcotic agent; Z88.8 Allergy status to other drugs, medicaments and biological substances; Z90.79 Acquired absence of other genital organ(s); Z90.49 Acquired absence of other specified parts of digestive tract; Z87.891 Personal history of nicotine dependence
CPT/HCPCS: 36415; 70450-TC; 70496-TC; 70498-TC; 71045-TC-FY; 74177-TC; 80053; 80061; 81003; 82962; 83036; 84484; 85025; 85610; 85730; 86803; 86850; 86900; 86901; 87086; 87186; 87389; 93005; 93010; 96372; 96374; 96375; 96376; 99285-25; G0378; J1644

== ENCOUNTER 2024-06-03 22:59 | Emergency (ER) | payer OTHER ==
[2024-06-03 23:14] VITALS: BMI 25.4
[2024-06-04] MEDS ORDERED: ACETAMINOPHEN INJECTION 100 ML ONE (00:27)
[2024-06-04 00:34] LABS: BASO % 0.9 % (0-2.0); EOS % 1.7 % (0-4.5); HEMATOCRIT 33.1 % (32.4-45.2); HEMOGLOBIN 11.3 GM/dL (10.7-15.3); MCH 26.7 pg (25.7-33.7); MCHC 34.2 g/dl (32.0-36.0); MEAN PLT VOLUME 8.5 fl (7.5-11.1); MONO % 7.2 % (3.8-10.2); NEUT % 67.2 % (42.8-82.8); PLATELET COUNT 295 10^3/uL (134-434); RBC 4.24 M/mm3 (3.60-5.2); RDW 14.8 % (11.6-15.6); WHITE BLOOD COUNT 7.4 K/mm3 (4.0-10.0)
[2024-06-04] MEDS: ACETAMINOPHEN 1000 MG/100 ML BAG IVPB ONE (00:37)
[2024-06-04] MEDS: LACTATED RINGERS SOLUTION 1000 ML INFUS.BAG IV ONE (00:37)
[2024-06-04] MEDS ORDERED: METOCLOPRAMIDE HCL INJECTION 10 MG/2 ML VIAL ONE (00:38)
[2024-06-04 00:41] LABS: VENOUS BASE EXCESS -1.6 mmol/L (-2-2); VENOUS O2 SATURATION 89.4 % (70-80); VENOUS PCO2 28.5 mmHg (38-52); VENOUS PH 7.481 (7.310-7.410)
[2024-06-04 00:58] LABS: POTASSIUM 3.9 mmol/L (3.5-5.1)
[2024-06-04 01:01] LABS: ALBUMIN 3.6 g/dl (3.4-5.0); CALCIUM 9.6 mg/dL (8.5-10.1)
[2024-06-04 01:02] LABS: MAGNESIUM 1.6 mg/dL (1.8-2.4)
[2024-06-04 01:03] LABS: BLOOD UREA NITROGEN 18.2 mg/dL (7-18)
[2024-06-04 01:05] LABS: CREATININE 1.1 mg/dL (0.55-1.3); PHOSPHOROUS 3.3 mg/dL (2.5-4.9)
[2024-06-04 01:06] LABS: BILIRUBIN,TOTAL 0.6 mg/dL (0.2-1); TOT PROT 8.3 g/dl (6.4-8.2)
[2024-06-04] MEDS: METOCLOPRAMIDE HCL INJECTION 10 MG/2 ML VIAL IVPB ONE (01:10)
[2024-06-04 01:32] LABS: LACTIC ACID 2.3 mmol/L (0.4-2.0)
[2024-06-04] MEDS ORDERED: MECLIZINE HCL 25 MG TABLET (FP) ONE ×2 (01:40→01:42)
[2024-06-04] MEDS: MECLIZINE HCL 25 MG TABLET (FP) PO ONE (01:46)
[2024-06-04 02:03] LABS: EPI CELLS 26 /uL (0-25.1); HYALINE CASTS 1 /uL (0-3.1); PH,URINE 5.5 (5.0-8.0); URINE APPEARANCE CLEAR; URINE BACTERIA 150 /uL (0-1359); URINE BILIRUBIN NEGATIVE (NEGATIVE); URINE COLOR YELLOW; URINE GLUCOSE (UA) NEGATIVE (NEGATIVE); URINE KETONE TRACE (NEGATIVE); URINE LEUK ESTERASE 2+ (NEGATIVE); URINE NITRITE NEGATIVE (NEGATIVE); URINE PROTEIN NEGATIVE (NEGATIVE); URINE RBC 14 /uL (0-23.9); URINE UROBILINOGEN 0.2 mg/dL (0.2-1.0); URINE WBC 108 /uL (0-25.8)
[2024-06-04] MEDS ORDERED: MAGNESIUM 1GM/D5W - 1 GM/100 ML IVPB IVPB ONE (02:08)
[2024-06-04] MEDS: MAGNESIUM 1GM/D5W - 1 GM/100 ML IVPB IVPB ONE (02:13)
[2024-06-04 03:57] VITALS: BP 120/64; PULSE 86; RESP 19
== END 2024-06-04 04:46 | disposition home or self-care (01) ==
LOC: JER 22:59
PROC: 3E033GC Introduction of Other Therapeutic Substance into Peripheral Vein, Percutaneous Approach (ICD-10-PCS; principal; 2024-06-04)
PROC: 3E033GC Introduction of Other Therapeutic Substance into Peripheral Vein, Percutaneous Approach (ICD-10-PCS; 2024-06-04)
PROC: 3E033NZ Introduction of Analgesics, Hypnotics, Sedatives into Peripheral Vein, Percutaneous Approach (ICD-10-PCS; 2024-06-04)
DX: R10.84 Generalized abdominal pain (principal); R11.2 Nausea with vomiting, unspecified; Z20.822 Contact with and (suspected) exposure to COVID-19
CPT/HCPCS: 0241U-QW; 36415; 71045-TC-FY; 74177-TC; 80053; 81003; 82010; 82803; 83605; 83690; 83735; 84100; 84484; 85025; 87086; 93005; 93010; 99285-25; J0131; Q9967

== ENCOUNTER 2025-02-02 06:16 | Emergency (ER) | payer OTHER ==
[2025-02-02 06:26] VITALS: BMI 25.4
[2025-02-02] MEDS ORDERED: morphine SULFATE 4 MG/ML VIAL ONE (06:33)
[2025-02-02] MEDS ORDERED: ACETAMINOPHEN INJECTION 100 ML ONE (06:34)
[2025-02-02] MEDS ORDERED: ONDANSETRON 4 MG/2 ML VIAL ONE (06:34)
[2025-02-02] MEDS: morphine CARPU-JECT 4 MG/1 ML DISP.SYRIN IVPUSH ONE (06:59)
[2025-02-02] MEDS: LACTATED RINGERS SOLUTION 1000 ML INFUS.BAG IV ONE ×2 (06:59→08:45)
[2025-02-02] MEDS: ACETAMINOPHEN 1000 MG/100 ML BAG IVPB ONE (07:00)
[2025-02-02] MEDS: ONDANSETRON 4 MG/2 ML VIAL IVPB ONE (07:01)
[2025-02-02 07:02] LABS: ABSOLUTE IMMATURE GRANULOCYTES 0.03 x10^3/uL (0.0-0.031); BASOPHILS # 0.04 x10^3/uL (0.01-0.08); EOSINOPHIL % 1.8 % (0.7-5.8); EOSINOPHILS # 0.14 x10^3/uL (0.04-0.36); HEMATOCRIT 29.1 % (34.1-44.9); HEMOGLOBIN 9.3 g/dL (11.2-15.7); MEAN CELL VOLUME 80.6 fl (79.4-94.8); MEAN PLT VOLUME 10.5 fl (9.4-12.3); MONOCYTE # 0.51 x10^3/uL (0.24-0.86); MONOCYTE % 6.6 % (4.7-12.5); PLATELET COUNT 249 x10^3/uL (182-369); RDW 13.5 % (12.4-16.4)
[2025-02-02 07:03] LABS: VENOUS BASE EXCESS -0.4 mmol/L (-2-2); VENOUS O2 SATURATION 59.6 % (70-80); VENOUS PCO2 37.1 mmHg (38-52); VENOUS PH 7.423 (7.310-7.410)
[2025-02-02 07:23] LABS: POTASSIUM 3.2 mmol/L (3.5-5.1)
[2025-02-02 07:25] LABS: ALBUMIN 3.4 g/dl (3.4-5.0); BLOOD UREA NITROGEN 9.9 mg/dL (7-18); CALCIUM 9.7 mg/dL (8.5-10.1)
[2025-02-02 07:26] LABS: MAGNESIUM 1.1 mg/dL (1.8-2.4)
[2025-02-02 07:28] LABS: CREATININE 0.8 mg/dL (0.55-1.3)
[2025-02-02 07:30] LABS: BILIRUBIN,TOTAL 0.5 mg/dL (0.2-1); TOT PROT 7.4 g/dl (6.4-8.2)
[2025-02-02 07:53] LABS: LACTIC ACID 2.1 mmol/L (0.4-2.0)
[2025-02-02] MEDS ORDERED: POTASSIUM CHLORIDE ORAL LIQUID 20 MEQ/15 ML ONE (08:24)
[2025-02-02] MEDS ORDERED: MAGNESIUM 1GM/D5W - 1 GM/100 ML IVPB IVPB ONE (08:25)
[2025-02-02 08:26] LABS: EPI CELLS 4 /uL (0-25.1); HYALINE CASTS 0 /uL (0-3.1); PH,URINE 6.5 (5.0-8.0); URINE APPEARANCE CLEAR; URINE BACTERIA 58 /uL (0-1359); URINE BILIRUBIN NEGATIVE (NEGATIVE); URINE COLOR YELLOW; URINE GLUCOSE (UA) NEGATIVE (NEGATIVE); URINE KETONE NEGATIVE (NEGATIVE); URINE LEUK ESTERASE TRACE (NEGATIVE); URINE NITRITE NEGATIVE (NEGATIVE); URINE PROTEIN NEGATIVE (NEGATIVE); URINE RBC 4 /uL (0-23.9); URINE UROBILINOGEN 0.2 mg/dL (0.2-1.0); URINE WBC 5 /uL (0-25.8)
[2025-02-02] MEDS: MAGNESIUM SULF 50% (8.12 MEQ/2 ML-1 GM VIAL) IVPB ONE (08:40)
[2025-02-02] MEDS: POTASSIUM CHLORIDE ORAL LIQUID 20 MEQ/15 ML PO ONE (08:40)
[2025-02-02 10:07] VITALS: BP 118/63; PULSE 80; RESP 19; TEMP 97.8
[2025-02-02 12:08] LABS: URINE CRYSTALS NONE SEEN /hpf
== END 2025-02-02 10:13 | disposition home or self-care (01) ==
LOC: JER 06:16
PROC: 3E033GC Introduction of Other Therapeutic Substance into Peripheral Vein, Percutaneous Approach (ICD-10-PCS; principal; 2025-02-02)
PROC: 3E033GC Introduction of Other Therapeutic Substance into Peripheral Vein, Percutaneous Approach (ICD-10-PCS; 2025-02-02)
PROC: 3E033NZ Introduction of Analgesics, Hypnotics, Sedatives into Peripheral Vein, Percutaneous Approach (ICD-10-PCS; 2025-02-02)
PROC: 3E033NZ Introduction of Analgesics, Hypnotics, Sedatives into Peripheral Vein, Percutaneous Approach (ICD-10-PCS; 2025-02-02)
DX: R10.31 Right lower quadrant pain (principal); R11.2 Nausea with vomiting, unspecified; R06.02 Shortness of breath
CPT/HCPCS: 36415; 74177-TC; 80053; 81003; 82803; 83605; 83690; 83735; 85025; 87086; 93005; 93010; 99285-25; Q9967

== ENCOUNTER 2025-03-14 04:37 | Emergency (ER) | payer OTHER ==
[2025-03-14 04:43] VITALS: TEMP 97.9; BMI 22.6
[2025-03-14] MEDS ORDERED: ONDANSETRON 4 MG/2 ML VIAL ONE (05:38)
[2025-03-14] MEDS: ONDANSETRON 4 MG/2 ML VIAL IVPUSH ONE (05:43)
[2025-03-14] MEDS: morphine CARPU-JECT 4 MG/1 ML DISP.SYRIN IVPUSH ONE ×2 (05:43→06:31)
[2025-03-14] MEDS: ACETAMINOPHEN 1000 MG/100 ML BAG IVPB ONE (05:44)
[2025-03-14] MEDS ORDERED: MORPHINE SULFATE 2 MG/ML SYRINGE ONE (06:28)
[2025-03-14 06:35] LABS: INR 1.08 (0.83-1.09); PROTHROMBIN TIME (PATIENT) 11.8 SEC (9.7-13.0)
[2025-03-14 06:37] LABS: ABSOLUTE IMMATURE GRANULOCYTES 0.04 x10^3/uL (0.0-0.031); BASOPHILS # 0.04 x10^3/uL (0.01-0.08); EOSINOPHIL % 1.7 % (0.7-5.8); EOSINOPHILS # 0.14 x10^3/uL (0.04-0.36); MCHC 31.6 g/dl (32.2-35.5); MEAN CELL VOLUME 83.5 fl (79.4-94.8); MEAN PLT VOLUME 10.7 fl (9.4-12.3); MONOCYTE # 0.59 x10^3/uL (0.24-0.86); MONOCYTE % 7.0 % (4.7-12.5); RDW 13.9 % (12.4-16.4)
[2025-03-14 06:39] LABS: ACTIVATED PTT 32.9 SECONDS (25.2-36.5)
[2025-03-14 06:56] LABS: CO2 28.0 mmol/L (21-32); GLUCOSE,RANDOM 214.0 mg/dL (74-106)
[2025-03-14 06:58] LABS: CREATININE 1.2 mg/dL (0.55-1.3); SGOT/AST 22.0 U/L (15-37); SGPT/ALT 26.0 U/L (13-61)
[2025-03-14 07:01] LABS: TOT PROT 7.6 g/dl (6.4-8.2)
[2025-03-14 07:02] LABS: ALK PHOS 137.0 U/L (45-117)
[2025-03-14 07:44] VITALS: BP 116/75; PULSE 79; RESP 19
[2025-03-14 08:09] LABS: LACTIC ACID 2.7 mmol/L (0.4-2.0)
[2025-03-14] MEDS ORDERED: MAGNESIUM SULFATE IN WATER 2 GM/50 ML IVPB IVPB ONE (08:34)
[2025-03-14] MEDS: SODIUM CHLORIDE 0.9% 500 ML INFUS.BAG IV ONE (08:48)
[2025-03-14] MEDS: MAGNESIUM SULFATE IN WATER 2 GM/50 ML IVPB IVPB ONE (08:49)
[2025-03-14 09:28] LABS: EPI CELLS 8 /uL (0-25.1); HYALINE CASTS 0 /uL (0-3.1); URINE APPEARANCE CLEAR; URINE BACTERIA 40 /uL (0-1359); URINE BILIRUBIN NEGATIVE (NEGATIVE); URINE COLOR YELLOW; URINE GLUCOSE (UA) NEGATIVE (NEGATIVE); URINE KETONE NEGATIVE (NEGATIVE); URINE LEUK ESTERASE TRACE (NEGATIVE); URINE NITRITE NEGATIVE (NEGATIVE); URINE PROTEIN NEGATIVE (NEGATIVE); URINE RBC 8 /uL (0-23.9); URINE UROBILINOGEN 0.2 mg/dL (0.2-1.0); URINE WBC 11 /uL (0-25.8)
== END 2025-03-14 10:26 | disposition home or self-care (01) ==
LOC: JER 04:37
PROC: 3E033GC Introduction of Other Therapeutic Substance into Peripheral Vein, Percutaneous Approach (ICD-10-PCS; principal; 2025-03-14)
PROC: 3E033NZ Introduction of Analgesics, Hypnotics, Sedatives into Peripheral Vein, Percutaneous Approach (ICD-10-PCS; 2025-03-14)
PROC: 3E033NZ Introduction of Analgesics, Hypnotics, Sedatives into Peripheral Vein, Percutaneous Approach (ICD-10-PCS; 2025-03-14)
PROC: 3E033GC Introduction of Other Therapeutic Substance into Peripheral Vein, Percutaneous Approach (ICD-10-PCS; 2025-03-14)
DX: R10.31 Right lower quadrant pain (principal); R10.32 Left lower quadrant pain; R11.2 Nausea with vomiting, unspecified
CPT/HCPCS: 36415; 74177-TC; 80053; 81003; 82962; 83605; 83690; 83735; 85025; 85610; 85730; 86850; 86900; 86901; 87086; 96365; 96375; 96376; 99285-25; Q9967

== ENCOUNTER 2025-03-29 11:07 | Emergency (ER) | payer OTHER ==
[2025-03-29 11:19] VITALS: TEMP 98.1; BMI 24.2
[2025-03-29] MEDS: morphine CARPU-JECT 2 MG/1 ML DISP.SYRIN IVPUSH ONE (12:04)
[2025-03-29] MEDS: ONDANSETRON 4 MG/2 ML VIAL IVPUSH ONE (12:04)
[2025-03-29 12:06] LABS: ABSOLUTE IMMATURE GRANULOCYTES 0.02 x10^3/uL (0.0-0.031); BASOPHILS # 0.04 x10^3/uL (0.01-0.08); EOSINOPHIL % 2.0 % (0.7-5.8); EOSINOPHILS # 0.14 x10^3/uL (0.04-0.36); MCHC 32.8 g/dl (32.2-35.5); MEAN CELL VOLUME 81.6 fl (79.4-94.8); MEAN PLT VOLUME 10.4 fl (9.4-12.3); MONOCYTE # 0.46 x10^3/uL (0.24-0.86); MONOCYTE % 6.7 % (4.7-12.5); RDW 13.9 % (12.4-16.4)
[2025-03-29 12:12] LABS: BG HCT 34.0 % (32.4-45.2); VENOUS BASE EXCESS -1.9 mmol/L (-2-2); VENOUS O2 SATURATION 92.9 % (70-80); VENOUS PCO2 31.2 mmHg (38-52); VENOUS PH 7.451 (7.310-7.410)
[2025-03-29] MEDS: SODIUM CHLORIDE 0.9% 500 ML INFUS.BAG IV ONE (12:12)
[2025-03-29 13:30] LABS: GLUCOSE,RANDOM 185.0 mg/dL (74-106)
[2025-03-29 13:31] LABS: TOT PROT 7.4 g/dl (6.4-8.2)
[2025-03-29 13:32] LABS: CO2 21.0 mmol/L (21-32)
[2025-03-29 13:33] LABS: ALK PHOS 140.0 U/L (40-150)
[2025-03-29 13:36] LABS: CREATININE 0.94 mg/dL (0.55-1.3); SGOT/AST 20.0 U/L (5-34); SGPT/ALT 11.0 U/L (0-55)
[2025-03-29] MEDS ORDERED: MAGNESIUM 1GM/D5W - 1 GM/100 ML IVPB IVPB ONE (13:59)
[2025-03-29] MEDS: MAGNESIUM 1GM/D5W - 1 GM/100 ML IVPB IVPB ONE (14:03)
[2025-03-29 17:27] VITALS: BP 108/67; PULSE 72; RESP 18
[2025-03-29 17:47] LABS: URINE APPEARANCE CLEAR; URINE BILIRUBIN NEGATIVE (NEGATIVE); URINE COLOR YELLOW; URINE GLUCOSE (UA) NEGATIVE (NEGATIVE); URINE KETONE NEGATIVE (NEGATIVE); URINE LEUK ESTERASE NEGATIVE (NEGATIVE); URINE NITRITE NEGATIVE (NEGATIVE); URINE PROTEIN TRACE (NEGATIVE); URINE UROBILINOGEN 1.0 mg/dL (0.2-1.0)
[2025-03-29 18:40] LABS: HCV DIAGNOSTIC IN-HOUSE W/RFLX NON-REACTIVE (NONREACTIVE); HIV INTERPRETATION NEGATIVE (NEGATIVE)
== END 2025-03-29 18:35 | disposition home or self-care (01) ==
LOC: JER 11:07
PROC: 3E033GC Introduction of Other Therapeutic Substance into Peripheral Vein, Percutaneous Approach (ICD-10-PCS; principal; 2025-03-29)
PROC: 3E033NZ Introduction of Analgesics, Hypnotics, Sedatives into Peripheral Vein, Percutaneous Approach (ICD-10-PCS; 2025-03-29)
PROC: 3E033GC Introduction of Other Therapeutic Substance into Peripheral Vein, Percutaneous Approach (ICD-10-PCS; 2025-03-29)
DX: K59.00 Constipation, unspecified (principal); R10.84 Generalized abdominal pain; R11.2 Nausea with vomiting, unspecified
CPT/HCPCS: 36415; 71045-TC-FY; 74177-TC; 80053; 81003; 82010; 82803; 83605; 83735; 84484; 85025; 86803; 87086; 87389; 93005; 93010; 99285-25; Q9967